=== PATIENT | female | born 1960 | race African-American/Black ===

== ENCOUNTER 2016-10-18 07:25 | Inpatient (IN) | payer MEDICAID ==
[~2016-10-18] VITALS: Ht 167.6 cm; Wt 78.8 kg
[~2016-10-18 07:25] MED LIST: ACETAMINOPHEN; AMLO10TA2; BISA-4; BUTA-187; CETI10TA93; CLON0.2T; COLACE; FLUT50SP13; HCTZ; HYDR-2595; HYDR25TA4; HYDROCODONE; IBUP800T24; IMITREX; KEPPRA; LEVE500T3; LORA10CA7; MECL-87; NORVASC 5 MG; OXYBUTYNIN 5 MG TABLET; PANTOPRAZOLE SOD DR 40 MG TAB; PREMPRO; PROMETHAZINE-DM SYRUP; PROPANALOL; PROPRANOLOL 40 MG TABLET; SUMA100T15; TRAM50TA2; TRIP2.5T9; ZOLP5TAB5
[2016-10-18] MEDS ORDERED: SODIUM CHLORIDE 0.9% 1,000 ML IV ONE (08:31)
[2016-10-18] MEDS ORDERED: PANTOPRAZOLE SODIUM 40 MG/10 ML VIAL IV ONE (08:45)
[2016-10-18] MEDS ORDERED: ASPirin 81 mg TAB PO ONE (08:45)
[2016-10-18] MEDS ORDERED: MORPHINE SULF INJ 2 MG/ML SYRINGE 1ML IV ONE ×2 (08:45→11:45)
[2016-10-18] MEDS ORDERED: ONDANSETRON HCL 4 MG/2 ML VIAL IV ONE (08:45)
[2016-10-18 08:56] LABS: Basophils # (auto) 0 uL; Basophils % (auto) 0.4 % (0.0-2.0); Eosinophils # (auto) 0 uL; Hematocrit 42.1 % (36.0-46.0); Hemoglobin 14.3 g/dL (12.2-16.2); Lymphocytes # (auto) 0.8 uL; Lymphocytes % (auto) 11.7 % (10.0-50.0); Mean Corpuscular Volume 88.1 fL (80.0-100.0); Monocytes # (auto) 0.1 uL; Neutrophils # (auto) 5.9 uL; Neutrophils % (auto) 85.9 % (37.0-80.0); Platelet Count (auto) 245 10^3/uL (140-450); Red Cell Distribution Width 13.9 % (11.6-16.0); White Blood Cell 6.9 10^3/uL (4.4-10.8)
[2016-10-18 09:27] LABS: Albumin 4.1 g/dL (3.4-5.0); Alkaline Phosphatase 91 U/L (45-117); Anion Gap 12 (5-15); Aspartate Aminotransferase 22 U/L (15-37); BUN/Creatinine Ratio 14.4; Bilirubin, Total 0.4 mg/dL (0.2-1.0); Blood Urea Nitrogen 13 mg/dL (7-18); Calcium 9.8 mg/dL (8.5-10.1); Carbon Dioxide 25 mmol/L (21-32); Chloride 105 mmol/L (98-107); GFR African American 83 mL/min; GFR Non-African American 69 mL/min; Glucose 122 mg/dL (74-106); Magnesium 2.4 mg/dL (1.6-2.6); Potassium 3.3 mmol/L (3.5-5.1); Sodium 142 mmol/L (136-145); Total Protein 8.5 g/dL (6.4-8.2)
[2016-10-18] MEDS ORDERED: LORazepam 2MG/ML-1ML VIAL IV ONE (11:45)
[2016-10-18] MEDS ORDERED: POTASSIUM CHLORIDE 8 MEQ TAB PO ONE ×2 (13:00→13:29)
[2016-10-18] MEDS ORDERED: amLODIPine BESYLATE 5 MG TAB PO ONE ×2 (13:00→14:00)
[2016-10-18] MEDS ORDERED: NITROGLYCERIN 0.4 MG SL TAB SL PRN ×2 (13:15)
[2016-10-18] MEDS ORDERED: ACETAMINOPHEN 325 MG TAB PO PRN (13:15)
[2016-10-18] MEDS ORDERED: LORazepam 0.5 MG TAB PO PRN (13:15)
[2016-10-18] MEDS ORDERED: PANTOPRAZOLE 40 MG TAB PO ONE (13:15)
[2016-10-18] MEDS ORDERED: diphenhdrAMINE HCL 25 MG CAP PO PRN (13:15)
[2016-10-18] MEDS ORDERED: HCTZ 25 MG TAB PO ONE (13:15)
[2016-10-18] MEDS ORDERED: MORPHINE SULF INJ 2 MG/ML SYRINGE 1ML IV PRN ×2 (13:15)
[2016-10-18] MEDS ORDERED: BACLOFEN 10 MG TAB PO PRN (13:15)
[2016-10-18] MEDS ORDERED: ONDANSETRON HCL 4 MG/2 ML VIAL IV PRN (13:15)
[2016-10-18] MEDS ORDERED: ALUM & MAG HYDROX-SIMETH LIQ(MAALOX) 30 ML PO PRN (13:15)
[2016-10-18] MEDS ORDERED: BISACODYL 5 MG EC TAB PO ONE (13:15)
[2016-10-18 13:24] LABS: Amylase 64 U/L (25-115)
[2016-10-18] MEDS: ASPirin 81 mg TAB PO SCH (13:43)
[2016-10-18] MEDS: DOCUSATE SOD 100 MG CAP PO SCH (13:43)
[2016-10-18 14:00] LABS: B-Type Natriuretic Peptide 5.48 pg/mL (0-100)
[2016-10-18] MEDS ORDERED: CLOPIDOGREL BISULFATE 75 MG TAB PO ONE (14:00)
[2016-10-18] MEDS ORDERED: ENALAPRIL MALEATE 10 MG TAB PO ONE (14:00)
[2016-10-18] MEDS ORDERED: LEVETIRACETAM 500 MG TAB PO ONE (14:00)
[2016-10-18] MEDS: SODIUM CHLOR 0.9% PF (SALINE LOCK) 10ML VIAL IV SCH ×2 (14:17→21:42)
[2016-10-18 14:28] LABS: Temperature: 22.2 C (20.0-25.0)
[2016-10-18 15:27] LABS: INR 1.09 (0.9-1.15); Prothrombin Time 11.2 sec (9.37-12.3)
[2016-10-18] MEDS: HYDROcodone-ACET 10/325MG TAB PO PRN (20:33)
[2016-10-18 21:00] VITALS: BP 125/82
[2016-10-18 21:31] LABS: Urine Bilirubin Negative (Negative); Urine Blood Negative /uL (Negative); Urine Ca Oxalate Crystal FEW (None Seen); Urine Color Yellow (Yellow); Urine Glucose Normal (Normal); Urine Ketone 2+ (Negative); Urine Nitrite Negative (Negative); Urine RBC 2 /hpf (0 - 4); Urine Squamous Epithelial Cell FEW /hpf (<5); Urine Urobilinogen Normal (Negative); Urine pH 6.5 (5.0-8.0)
[2016-10-18] MEDS: FLUTICASONE PROP NASAL SPR 0.05 % (50MCG) 16GM EACHNOSTRI SCH (21:42)
[2016-10-18] MEDS: LEVETIRACETAM 500 MG TAB PO SCH (21:43)
[2016-10-18] MEDS: ATORVASTATIN 20 MG TAB PO SCH (21:43)
[2016-10-18] MEDS: ENALAPRIL MALEATE 10 MG TAB PO SCH (21:44)
[2016-10-18] MEDS: PROPRANOLOL HCL 20 MG TAB PO SCH (21:46)
[2016-10-18] MEDS: ZOLPIDEM TARTRATE 5 MG TAB PO PRN (22:00)
[2016-10-18] MEDS ORDERED: PROPRANOLOL HCL 20 MG TAB PO SCH (22:00)
[2016-10-19] MEDS: ALPRAZolam 0.5 MG TAB PO PRN (01:16)
[2016-10-19] MEDS: HYDROcodone-ACET 10/325MG TAB PO PRN ×3 (02:35→18:52)
[2016-10-19 05:36] VITALS: BP 133/90
[2016-10-19] MEDS: SODIUM CHLOR 0.9% PF (SALINE LOCK) 10ML VIAL IV SCH ×3 (05:36→23:12)
[2016-10-19 06:37] LABS: Basophils # (auto) 0 uL; Basophils % (auto) 0.4 % (0.0-2.0); Eosinophils # (auto) 0.1 uL; Hemoglobin 13.3 g/dL (12.2-16.2); Lymphocytes # (auto) 2.2 uL; Lymphocytes % (auto) 27.6 % (10.0-50.0); Mean Corpuscular Hemoglobin 29.7 pg (28.0-32.0); Mean Corpuscular Hgb Conc. 33.4 g/dL (32.0-36.0); Mean Platelet Volume 8.4 fL (7.4-10.4); Monocytes # (auto) 0.5 uL; Monocytes % (auto) 5.8 % (0.0-12.0); Neutrophils # (auto) 5.3 uL; Neutrophils % (auto) 65.2 % (37.0-80.0); Platelet Count (auto) 229 10^3/uL (140-450); Red Cell Distribution Width 14.1 % (11.6-16.0); White Blood Cell 8.1 10^3/uL (4.4-10.8)
[2016-10-19 07:17] LABS: Albumin 3.6 g/dL (3.4-5.0); Alkaline Phosphatase 79 U/L (45-117); Anion Gap 10 (5-15); Aspartate Aminotransferase 19 U/L (15-37); BUN/Creatinine Ratio 13.6; Bilirubin, Total 0.5 mg/dL (0.2-1.0); Blood Urea Nitrogen 11 mg/dL (7-18); Calcium 9.3 mg/dL (8.5-10.1); Carbon Dioxide 27 mmol/L (21-32); Chloride 106 mmol/L (98-107); Cholesterol 192 mg/dL (<200); GFR African American 94 mL/min; GFR Non-African American 77 mL/min; Glucose 108 mg/dL (74-106); HDL Cholesterol 81 mg/dL (40-59); LDL Cholesterol 102 mg/dL (<100); Magnesium 2.2 mg/dL (1.6-2.6); Potassium 3.6 mmol/L (3.5-5.1); Sodium 143 mmol/L (136-145); Total Protein 7.6 g/dL (6.4-8.2); Triglycerides 67 mg/dL (<150)
[2016-10-19] MEDS: PANTOPRAZOLE 40 MG TAB PO SCH (09:39)
[2016-10-19] MEDS: CLOPIDOGREL BISULFATE 75 MG TAB PO SCH (09:39)
[2016-10-19] MEDS: amLODIPine BESYLATE 5 MG TAB PO SCH (09:39)
[2016-10-19] MEDS: ASPirin 81 mg TAB PO SCH (09:40)
[2016-10-19] MEDS: LEVETIRACETAM 500 MG TAB PO SCH ×2 (09:40→23:08)
[2016-10-19] MEDS: BISACODYL 5 MG EC TAB PO SCH (09:40)
[2016-10-19] MEDS: POTASSIUM CHLORIDE 8 MEQ TAB PO SCH (09:40)
[2016-10-19] MEDS: LORATADINE 10 MG TAB PO SCH (09:43)
[2016-10-19] MEDS: PROPRANOLOL HCL 20 MG TAB PO SCH ×2 (10:00→23:15)
[2016-10-19] MEDS ORDERED: LORATADINE 10 MG TAB PO SCH (10:00)
[2016-10-19] MEDS ORDERED: SUMAtriptan SUCCINATE 25 MG TAB PO PRN (10:00)
[2016-10-19] MEDS: ENALAPRIL MALEATE 10 MG TAB PO SCH ×2 (10:00→23:12)
[2016-10-19] MEDS ORDERED: HCTZ 25 MG TAB PO SCH (10:00)
[2016-10-19] MEDS: DOCUSATE SOD 100 MG CAP PO SCH (10:00)
[2016-10-19] MEDS: HCTZ 25 MG TAB PO SCH (10:00)
[2016-10-19] MEDS: FLUTICASONE PROP NASAL SPR 0.05 % (50MCG) 16GM EACHNOSTRI SCH ×2 (10:55→23:11)
[2016-10-19] MEDS ORDERED: IOHEXOL 350 MG/ML 100ML IJ ONE (11:13)
[2016-10-19] MEDS ORDERED: NITROGLYCERIN 0.4 MG SL TAB SL ONE (11:19)
[2016-10-19] MEDS ORDERED: METOPROLOL TARTRATE 1MG/1ML-5ML VIAL IV ONE (11:19)
[2016-10-19 17:00] VITALS: BP 151/81
[2016-10-19 20:00] VITALS: BP 129/92
[2016-10-19 22:00] VITALS: BP 129/92
[2016-10-19] MEDS: ATORVASTATIN 20 MG TAB PO SCH (23:08)
[2016-10-19] MEDS: ZOLPIDEM TARTRATE 5 MG TAB PO PRN (23:13)
[2016-10-20] MEDS: ALPRAZolam 0.5 MG TAB PO PRN ×3 (03:03→23:53)
[2016-10-20] MEDS: HYDROcodone-ACET 10/325MG TAB PO PRN ×3 (03:13→20:37)
[2016-10-20] MEDS ORDERED: PROMETHAZINE HCL 6.25 MG/5 ML ORAL SYRUP PO PRN (04:15)
[2016-10-20 05:00] VITALS: BP 125/92
[2016-10-20] MEDS: SODIUM CHLOR 0.9% PF (SALINE LOCK) 10ML VIAL IV SCH ×3 (06:06→22:36)
[2016-10-20 09:00] VITALS: BP 115/80
[2016-10-20] MEDS: PANTOPRAZOLE 40 MG TAB PO SCH (09:20)
[2016-10-20] MEDS: POTASSIUM CHLORIDE 8 MEQ TAB PO SCH (09:21)
[2016-10-20] MEDS: LORATADINE 10 MG TAB PO SCH (09:21)
[2016-10-20] MEDS: HCTZ 25 MG TAB PO SCH (09:21)
[2016-10-20] MEDS: CLOPIDOGREL BISULFATE 75 MG TAB PO SCH (09:22)
[2016-10-20] MEDS: PROPRANOLOL HCL 20 MG TAB PO SCH ×2 (09:22→22:37)
[2016-10-20] MEDS: ASPirin 81 mg TAB PO SCH (09:23)
[2016-10-20] MEDS: amLODIPine BESYLATE 5 MG TAB PO SCH (09:23)
[2016-10-20] MEDS: DOCUSATE SOD 100 MG CAP PO SCH (09:23)
[2016-10-20] MEDS: ENALAPRIL MALEATE 10 MG TAB PO SCH ×2 (09:23→22:37)
[2016-10-20] MEDS: BISACODYL 5 MG EC TAB PO SCH (09:23)
[2016-10-20] MEDS: LEVETIRACETAM 500 MG TAB PO SCH ×2 (09:23→22:37)
[2016-10-20 11:49] LABS: INR 1.08 (0.9-1.15); Partial Thromboplastin Time 24.7 sec (22.64-33.71); Prothrombin Time 11.1 sec (9.37-12.3)
[2016-10-20 12:47] VITALS: BP 136/84
[2016-10-20 16:44] VITALS: BP 138/92
[2016-10-20] MEDS ORDERED: WARFARIN SODIUM 10 MG TAB PO ONE (17:00)
[2016-10-20] MEDS: FLUTICASONE PROP NASAL SPR 0.05 % (50MCG) 16GM EACHNOSTRI SCH ×2 (18:30→22:36)
[2016-10-20 22:00] VITALS: BP 128/91
[2016-10-20] MEDS ORDERED: ENOXAPARIN SOD 60 MG/0.6 ML SYRINGE SC SCH (22:00)
[2016-10-20] MEDS: ATORVASTATIN 20 MG TAB PO SCH (22:36)
[2016-10-20] MEDS: ENOXAPARIN SOD 80 MG/0.8ML SYRINGE SC SCH (22:38)
[2016-10-20] MEDS: ZOLPIDEM TARTRATE 5 MG TAB PO PRN (23:53)
[2016-10-21] MEDS: HYDROcodone-ACET 10/325MG TAB PO PRN ×2 (05:06→18:52)
[2016-10-21] MEDS: SODIUM CHLOR 0.9% PF (SALINE LOCK) 10ML VIAL IV SCH ×3 (05:06→21:47)
[2016-10-21 05:57] VITALS: BP 136/82
[2016-10-21 05:59] LABS: Basophils # (auto) 0.1 uL; Basophils % (auto) 0.6 % (0.0-2.0); Eosinophils # (auto) 0.2 uL; Eosinophils % (auto) 1.9 % (0.0-7.0); Hemoglobin 13.6 g/dL (12.2-16.2); Lymphocytes # (auto) 2.9 uL; Lymphocytes % (auto) 36.5 % (10.0-50.0); Mean Corpuscular Hemoglobin 29.5 pg (28.0-32.0); Mean Corpuscular Hgb Conc. 33.2 g/dL (32.0-36.0); Mean Corpuscular Volume 89.1 fL (80.0-100.0); Mean Platelet Volume 8.4 fL (7.4-10.4); Monocytes # (auto) 0.5 uL; Monocytes % (auto) 6.1 % (0.0-12.0); Neutrophils # (auto) 4.4 uL; Neutrophils % (auto) 54.9 % (37.0-80.0); Platelet Count (auto) 226 10^3/uL (140-450); Red Cell Distribution Width 13.8 % (11.6-16.0)
[2016-10-21 06:13] LABS: Partial Thromboplastin Time 30.3 sec (22.64-33.71); Prothrombin Time 12.1 sec (9.37-12.3)
[2016-10-21 06:14] LABS: INR 1.17 (0.9-1.15)
[2016-10-21 06:15] LABS: Albumin 3.3 g/dL (3.4-5.0); BUN/Creatinine Ratio 18.6; Calcium 8.8 mg/dL (8.5-10.1)
[2016-10-21 06:21] LABS: Bilirubin, Total 0.3 mg/dL (0.2-1.0)
[2016-10-21 08:13] VITALS: BP 120/96
[2016-10-21] MEDS: CLOPIDOGREL BISULFATE 75 MG TAB PO SCH (09:09)
[2016-10-21] MEDS: ENALAPRIL MALEATE 10 MG TAB PO SCH ×2 (09:10→21:46)
[2016-10-21] MEDS: LEVETIRACETAM 500 MG TAB PO SCH ×2 (09:11→21:47)
[2016-10-21] MEDS: POTASSIUM CHLORIDE 8 MEQ TAB PO SCH (09:11)
[2016-10-21] MEDS: HCTZ 25 MG TAB PO SCH (09:11)
[2016-10-21] MEDS: BISACODYL 5 MG EC TAB PO SCH (09:11)
[2016-10-21] MEDS: PROPRANOLOL HCL 20 MG TAB PO SCH ×2 (09:11→21:47)
[2016-10-21] MEDS: PANTOPRAZOLE 40 MG TAB PO SCH (09:12)
[2016-10-21] MEDS: amLODIPine BESYLATE 5 MG TAB PO SCH (09:12)
[2016-10-21] MEDS: LORATADINE 10 MG TAB PO SCH (09:12)
[2016-10-21] MEDS: DOCUSATE SOD 100 MG CAP PO SCH (09:12)
[2016-10-21] MEDS: ASPirin 81 mg TAB PO SCH (09:13)
[2016-10-21] MEDS: FLUTICASONE PROP NASAL SPR 0.05 % (50MCG) 16GM EACHNOSTRI SCH ×2 (09:13→21:58)
[2016-10-21] MEDS: ENOXAPARIN SOD 80 MG/0.8ML SYRINGE SC SCH ×2 (09:13→21:51)
[2016-10-21 11:39] VITALS: BP 132/87
[2016-10-21] MEDS ORDERED: POTASSIUM CHLORIDE 40 MEQ, LIDOCAINE 1% (LOCAL ANESTH.) 4 ML in SODIUM CHL 0.9% 250 ML IV ONE (15:30)
[2016-10-21 17:00] VITALS: BP 162/81
[2016-10-21] MEDS ORDERED: WARFARIN SODIUM 2.5 MG TAB PO ONE (17:00)
[2016-10-21] MEDS: ATORVASTATIN 20 MG TAB PO SCH (21:46)
[2016-10-21] MEDS: ALPRAZolam 0.5 MG TAB PO PRN (21:46)
[2016-10-21 22:00] VITALS: BP 160/90
[2016-10-22 05:00] VITALS: BP 150/68
[2016-10-22] MEDS: HYDROcodone-ACET 10/325MG TAB PO PRN ×3 (05:32→17:53)
[2016-10-22] MEDS: SODIUM CHLOR 0.9% PF (SALINE LOCK) 10ML VIAL IV SCH ×2 (05:33→14:04)
[2016-10-22 05:58] LABS: Basophils # (auto) 0 uL; Basophils % (auto) 0.8 % (0.0-2.0); Eosinophils # (auto) 0.2 uL; Eosinophils % (auto) 2.5 % (0.0-7.0); Hematocrit 39.3 % (36.0-46.0); Hemoglobin 12.9 g/dL (12.2-16.2); Lymphocytes # (auto) 2.6 uL; Mean Corpuscular Hemoglobin 29.4 pg (28.0-32.0); Mean Corpuscular Hgb Conc. 32.9 g/dL (32.0-36.0); Mean Corpuscular Volume 89.3 fL (80.0-100.0); Mean Platelet Volume 8.3 fL (7.4-10.4); Monocytes # (auto) 0.4 uL; Monocytes % (auto) 6.8 % (0.0-12.0); Neutrophils # (auto) 2.9 uL; Neutrophils % (auto) 47.9 % (37.0-80.0); Platelet Count (auto) 227 10^3/uL (140-450); Red Cell Distribution Width 13.7 % (11.6-16.0); White Blood Cell 6.1 10^3/uL (4.4-10.8)
[2016-10-22 06:21] LABS: BUN/Creatinine Ratio 21.8; Calcium 8.8 mg/dL (8.5-10.1); Potassium 3.2 mmol/L (3.5-5.1)
[2016-10-22 06:28] LABS: Partial Thromboplastin Time 35.7 sec (22.64-33.71)
[2016-10-22 06:42] LABS: INR 2.22 (0.9-1.15); Prothrombin Time 22.9 sec (9.37-12.3)
[2016-10-22 09:00] VITALS: BP 135/92
[2016-10-22] MEDS ORDERED: POTASSIUM CHL 20 Meq TABLET PO SCH (10:00)
[2016-10-22] MEDS ORDERED: POTASSIUM CHLORIDE 40 MEQ, LIDOCAINE 1% (LOCAL ANESTH.) 4 ML in SODIUM CHL 0.9% 250 ML IV ONE (10:00)
[2016-10-22] MEDS: FLUTICASONE PROP NASAL SPR 0.05 % (50MCG) 16GM EACHNOSTRI SCH (10:00)
[2016-10-22] MEDS: ENOXAPARIN SOD 80 MG/0.8ML SYRINGE SC SCH (10:01)
[2016-10-22] MEDS: PROPRANOLOL HCL 20 MG TAB PO SCH (10:02)
[2016-10-22] MEDS: ENALAPRIL MALEATE 10 MG TAB PO SCH (10:03)
[2016-10-22] MEDS: amLODIPine BESYLATE 5 MG TAB PO SCH (10:03)
[2016-10-22] MEDS: ASPirin 81 mg TAB PO SCH (10:04)
[2016-10-22] MEDS: BISACODYL 5 MG EC TAB PO SCH (10:04)
[2016-10-22] MEDS: PANTOPRAZOLE 40 MG TAB PO SCH (10:04)
[2016-10-22] MEDS: HCTZ 25 MG TAB PO SCH (10:04)
[2016-10-22] MEDS: CLOPIDOGREL BISULFATE 75 MG TAB PO SCH (10:04)
[2016-10-22] MEDS: LEVETIRACETAM 500 MG TAB PO SCH (10:04)
[2016-10-22] MEDS: DOCUSATE SOD 100 MG CAP PO SCH (10:04)
[2016-10-22] MEDS: LORATADINE 10 MG TAB PO SCH (10:05)
[2016-10-22 11:30] VITALS: BP 135/92
[2016-10-22 13:00] VITALS: BP 135/75
[2016-10-22] MEDS ORDERED: WARFARIN SODIUM 1 MG TAB PO ONE (17:00)
== END 2016-10-22 19:20 | disposition home or self-care (01) | DRG 134 ==
LOC: EDUNIT# 07:25 → ER 07:25 → TELE 07:26 → TELE-CENTR 17:26
PROVIDERS: ADMIT Internal Medicine; ATTEND Internal Medicine
DX: I26.99 Other pulmonary embolism without acute cor pulmonale (principal); I24.9 Acute ischemic heart disease, unspecified; I13.10 Hypertensive heart and chronic kidney disease without heart failure, with stage 1 through stage 4 chronic kidney disease, or unspecified chronic kidney disease; N18.2 Chronic kidney disease, stage 2 (mild); G43.909 Migraine, unspecified, not intractable, without status migrainosus; E87.6 Hypokalemia; G40.909 Epilepsy, unspecified, not intractable, without status epilepticus; K21.9 Gastro-esophageal reflux disease without esophagitis; K80.20 Calculus of gallbladder without cholecystitis without obstruction; E44.1 Mild protein-calorie malnutrition; I25.10 Atherosclerotic heart disease of native coronary artery without angina pectoris; K44.9 Diaphragmatic hernia without obstruction or gangrene; I25.2 Old myocardial infarction; Z98.890 Other specified postprocedural states; Z87.19 Personal history of other diseases of the digestive system; Z79.01 Long term (current) use of anticoagulants; Z87.891 Personal history of nicotine dependence; Z68.28 Body mass index [BMI] 28.0-28.9, adult
CPT/HCPCS: 36415; 71010; 71250; 74176; 75574; 80048; 80053; 80061; 81001; 82150; 83690; 83735; 83880; 84443; 84484; 85025; 85610; 85730; 93005; 93306; 96361; 96374; 96375; 96376; C9113; J2001; J2405

== ENCOUNTER 2017-08-15 14:36 | Emergency (ER) | payer MEDICAID ==
[~2017-08-15] VITALS: Ht 154.9 cm; Wt 68.0 kg
[2017-08-15 18:17] VITALS: BP 141/93
== END 2017-08-15 21:00 | disposition home or self-care (01) ==
LOC: ER 14:36
DX: J10.1 Influenza due to other identified influenza virus with other respiratory manifestations (principal); I10 Essential (primary) hypertension; K21.9 Gastro-esophageal reflux disease without esophagitis; I25.2 Old myocardial infarction; Z87.891 Personal history of nicotine dependence
CPT/HCPCS: 87400

== ENCOUNTER 2017-09-22 10:15 | Emergency (ER) | payer MEDICAID ==
[~2017-09-22] VITALS: Ht 154.9 cm; Wt 68.9 kg
[2017-09-22 10:49] LABS: Basophils # (auto) 0 uL; Basophils % (auto) 0.6 % (0.0-2.0); Eosinophils # (auto) 0.3 uL; Eosinophils % (auto) 4.2 % (0.0-7.0); Hematocrit 40.7 % (36.0-46.0); Hemoglobin 13.4 g/dL (12.2-16.2); Lymphocytes % (auto) 50.2 % (10.0-50.0); Mean Corpuscular Hemoglobin 29.4 pg (28.0-32.0); Mean Corpuscular Volume 89.2 fL (80.0-100.0); Monocytes # (auto) 0.3 uL; Monocytes % (auto) 5.4 % (0.0-12.0); Neutrophils # (auto) 2.4 uL; Neutrophils % (auto) 39.6 % (37.0-80.0); Nucleated Red Blood Cells % 0.1 %; Platelet Count (auto) 199 10^3/uL (140-450); Red Blood Cells 4.56 10^6/uL (4.0-5.20); Red Cell Distribution Width 14.4 % (11.8-14.3); White Blood Cell 6.1 10^3/uL (4.4-10.8)
[2017-09-22 11:08] LABS: INR 2.43 (0.9-1.15); Prothrombin Time 26.7 sec (9.37-12.3)
[2017-09-22 11:22] VITALS: BP 125/91
[2017-09-22 11:26] LABS: Alanine Aminotransferase 31 U/L (13-56); Albumin 3.4 g/dL (3.4-5.0); Alkaline Phosphatase 109 U/L (45-117); Anion Gap 7 (5-15); Aspartate Aminotransferase 21 U/L (15-37); Bilirubin, Total 0.3 mg/dL (0.2-1.0); Blood Urea Nitrogen 15 mg/dL (7-18); Carbon Dioxide 32 mmol/L (21-32); Chloride 102 mmol/L (98-107); GFR African American 85 mL/min; GFR Non-African American 70 mL/min; Glucose 78 mg/dL (74-106); Magnesium 2.6 mg/dL (1.6-2.6); Potassium 3.6 mmol/L (3.5-5.1); Sodium 141 mmol/L (136-145); Total Protein 7.8 g/dL (6.4-8.2)
[2017-09-22 11:30] LABS: Urine Amorphous Crystal FEW /hpf (None Seen); Urine Bacteria NONE SEEN /hpf (None Seen); Urine Blood Negative /uL (Negative); Urine Specific Gravity 1.021 (1.001-1.035); Urine WBC 4 /hpf (0 - 5)
== END 2017-09-22 12:52 | disposition home or self-care (01) ==
LOC: ER 10:15
DX: R07.89 Other chest pain (principal); I10 Essential (primary) hypertension; K21.9 Gastro-esophageal reflux disease without esophagitis; I25.2 Old myocardial infarction; Z87.891 Personal history of nicotine dependence; Z86.73 Personal history of transient ischemic attack (TIA), and cerebral infarction without residual deficits; Z79.891 Long term (current) use of opiate analgesic; Z79.01 Long term (current) use of anticoagulants; Z79.899 Other long term (current) drug therapy; Z88.1 Allergy status to other antibiotic agents
CPT/HCPCS: 36415; 71046; 80053; 81001; 83735; 84484; 85025; 85610; 93005; 94761

== ENCOUNTER 2017-10-12 09:25 | Inpatient (IN) | payer MEDICAID ==
[~2017-10-12] VITALS: Ht 154.9 cm; Wt 75.0 kg
[2017-10-12 10:31] LABS: Urine WBC None Seen /hpf (0 - 5)
[2017-10-12 10:35] LABS: Basophils # (auto) 0.1 uL; Basophils % (auto) 0.8 % (0.0-2.0); Eosinophils # (auto) 0.2 uL; Eosinophils % (auto) 2.2 % (0.0-7.0); Hematocrit 40.9 % (36.0-46.0); Hemoglobin 13.7 g/dL (12.2-16.2); Lymphocytes # (auto) 2.2 uL; Lymphocytes % (auto) 31.5 % (10.0-50.0); Mean Corpuscular Hemoglobin 29.5 pg (28.0-32.0); Mean Corpuscular Hgb Conc. 33.4 g/dL (32.0-36.0); Mean Corpuscular Volume 88.2 fL (80.0-100.0); Monocytes # (auto) 0.3 uL; Monocytes % (auto) 4.9 % (0.0-12.0); Neutrophils # (auto) 4.3 uL; Neutrophils % (auto) 60.6 % (37.0-80.0); Nucleated Red Blood Cells % 0.1 %; Platelet Count (auto) 223 10^3/uL (140-450); Red Blood Cells 4.64 10^6/uL (4.0-5.20); White Blood Cell 7.1 10^3/uL (4.4-10.8)
[2017-10-12 10:58] LABS: Alanine Aminotransferase 28 U/L (13-56); Albumin 3.9 g/dL (3.4-5.0); Alkaline Phosphatase 105 U/L (45-117); Anion Gap 10 (5-15); Aspartate Aminotransferase 22 U/L (15-37); BUN/Creatinine Ratio 15.3; Bilirubin, Total 0.4 mg/dL (0.2-1.0); Blood Urea Nitrogen 13 mg/dL (7-18); Calcium 9.6 mg/dL (8.5-10.1); Carbon Dioxide 28 mmol/L (21-32); Chloride 100 mmol/L (98-107); GFR African American 88 mL/min; GFR Non-African American 73 mL/min; Glucose 96 mg/dL (74-106); Sodium 138 mmol/L (136-145); Total Protein 8.6 g/dL (6.4-8.2)
[2017-10-12] MEDS ORDERED: amLODIPine BESYLATE 5 MG TAB PO ONE ×2 (11:00→12:00)
[2017-10-12 11:07] LABS: Potassium 2.8 mmol/L (3.5-5.1)
[2017-10-12 11:12] LABS: Urine Bacteria NONE SEEN /hpf (None Seen); Urine Blood Negative /uL (Negative); Urine Specific Gravity 1.009 (1.001-1.035)
[2017-10-12] MEDS ORDERED: NITROGLYCERIN 0.4 MG SL TAB SL ONE (11:30)
[2017-10-12] MEDS ORDERED: POTASSIUM CHL 10% (20 MEQ/15ML) 15ml ORAL SOLN PO ONE (11:30)
[2017-10-12] MEDS ORDERED: ASPirin 81 mg TAB PO ONE ×2 (11:30→12:00)
[2017-10-12] MEDS ORDERED: ACETAMINOPHEN 500 MG TAB PO PRN (11:45)
[2017-10-12] MEDS ORDERED: NITROGLYCERIN 0.4 MG SL TAB SL PRN (11:45)
[2017-10-12] MEDS ORDERED: cloNIDine HCL 0.1 MG TAB PO PRN (11:45)
[2017-10-12] MEDS ORDERED: LACTULOSE 20Gm/30ML SOLN PO PRN (11:45)
[2017-10-12] MEDS ORDERED: PROMETHAZINE HCL 25 MG/ML 1ML IV PRN (11:45)
[2017-10-12] MEDS ORDERED: MORPHINE SULFATE 4 MG/ML SYR/VIAL IV PRN (11:45)
[2017-10-12] MEDS ORDERED: ENOXAPARIN SOD 40 MG/0.4 ML SYRINGE SC SCH (11:56)
[2017-10-12] MEDS ORDERED: PANTOPRAZOLE 40 MG TAB PO ONE (12:00)
[2017-10-12] MEDS ORDERED: PROPRANOLOL HCL 20 MG TAB PO ONE (12:00)
[2017-10-12] MEDS ORDERED: LEVETIRACETAM 500 MG TAB PO ONE (12:00)
[2017-10-12] MEDS: SOD CHL 0.9%/ KCL 40MEQ 1,000 ML IV SCH (12:19)
[2017-10-12 14:54] LABS: Partial Thromboplastin Time 42.9 sec (22.64-33.71); Prothrombin Time 46.3 sec (9.37-12.3)
[2017-10-12 15:00] LABS: INR 4.19 (0.9-1.15)
[2017-10-12] MEDS: LORazepam 0.5 MG TAB PO PRN (18:31)
[2017-10-12] MEDS: LEVETIRACETAM 500 MG TAB PO SCH (21:38)
[2017-10-12] MEDS: ZOLPIDEM TARTRATE 5 MG TAB PO PRN (21:39)
[2017-10-12] MEDS: PROPRANOLOL HCL 20 MG TAB PO SCH (21:40)
[2017-10-12 22:00] VITALS: BP 117/72
[2017-10-13] MEDS: LORazepam 0.5 MG TAB PO PRN ×3 (03:35→21:38)
[2017-10-13 05:00] VITALS: BP 124/76
[2017-10-13] MEDS: SOD CHL 0.9%/ KCL 40MEQ 1,000 ML IV SCH ×3 (05:03→21:33)
[2017-10-13 06:34] LABS: INR 3.16 (0.9-1.15); Partial Thromboplastin Time 43.6 sec (22.64-33.71); Prothrombin Time 34.9 sec (9.37-12.3)
[2017-10-13 06:48] LABS: Cholesterol 194 mg/dL (< 200); HDL Cholesterol 70 mg/dL (40-59); LDL Cholesterol 114 mg/dL (< 100); Triglycerides 55 mg/dL (< 150)
[2017-10-13 08:57] LABS: Alcohol, Urine < 3.0 mg/dL (0-5); Amphetamine Screen, Urine NEGATIVE (NEGATIVE); Barbiturate Scree,Urine NEGATIVE (NEGATIVE); Benzodiazephine Screen, Urine NEGATIVE (NEGATIVE); Cannabinoid Screen, Urine NEGATIVE (NEGATIVE); Cocaine Screen, Urine NEGATIVE (NEGATIVE); Opiate Scree,Urine NEGATIVE (NEGATIVE); Phencyclidine Screen, Urine NEGATIVE (NEGATIVE)
[2017-10-13 09:00] VITALS: BP 146/94
[2017-10-13] MEDS: amLODIPine BESYLATE 5 MG TAB PO SCH (09:13)
[2017-10-13] MEDS: LEVETIRACETAM 500 MG TAB PO SCH ×2 (09:14→21:28)
[2017-10-13] MEDS: PANTOPRAZOLE 40 MG TAB PO SCH (09:14)
[2017-10-13] MEDS: NITROGLYCERIN 0.2MG/HR TOPICAL PATCH TD SCH (09:14)
[2017-10-13] MEDS: PROPRANOLOL HCL 20 MG TAB PO SCH ×2 (09:14→21:30)
[2017-10-13] MEDS: ASPirin 81 mg TAB PO SCH (09:15)
[2017-10-13] MEDS ORDERED: KETOROLAC TROMETH 30 MG/ML 1ML VIAL IV PRN (10:30)
[2017-10-13 10:47] LABS: BUN/Creatinine Ratio 12.7; Calcium 8.9 mg/dL (8.5-10.1); Potassium 3.1 mmol/L (3.5-5.1)
[2017-10-13 11:40] LABS: Urine Bacteria NONE SEEN /hpf (None Seen); Urine Blood Negative /uL (Negative); Urine Specific Gravity 1.011 (1.001-1.035); Urine WBC <1 /hpf (0 - 5)
[2017-10-13] MEDS: HYDROcodone-ACET 5/325MG TAB PO PRN ×2 (12:25→20:32)
[2017-10-13 13:00] VITALS: BP 140/34
[2017-10-13] MEDS ORDERED: POTASSIUM CHLORIDE 40 MEQ, LIDOCAINE 1% (LOCAL ANESTH.) 4 ML in SODIUM CHL 0.9% 100 ML IV ONE (15:30)
[2017-10-13] MEDS: MORPHINE SULFATE 4 MG/ML SYR/VIAL IV PRN (16:16)
[2017-10-13 17:22] VITALS: BP 145/97
[2017-10-13] MEDS: ZOLPIDEM TARTRATE 5 MG TAB PO PRN (21:28)
[2017-10-13 22:00] VITALS: BP 138/95
[2017-10-14 05:00] VITALS: BP 145/91
[2017-10-14 05:41] LABS: Basophils # (auto) 0.1 uL; Basophils % (auto) 0.8 % (0.0-2.0); Eosinophils # (auto) 0.2 uL; Eosinophils % (auto) 2.7 % (0.0-7.0); Hematocrit 40.1 % (36.0-46.0); Hemoglobin 13.6 g/dL (12.2-16.2); Lymphocytes # (auto) 2.6 uL; Lymphocytes % (auto) 37.6 % (10.0-50.0); Mean Corpuscular Hemoglobin 30.3 pg (28.0-32.0); Mean Corpuscular Hgb Conc. 33.8 g/dL (32.0-36.0); Mean Corpuscular Volume 89.6 fL (80.0-100.0); Monocytes # (auto) 0.4 uL; Monocytes % (auto) 6.2 % (0.0-12.0); Neutrophils # (auto) 3.7 uL; Neutrophils % (auto) 52.7 % (37.0-80.0); Nucleated Red Blood Cells % 0.2 %; Platelet Count (auto) 207 10^3/uL (140-450); Red Blood Cells 4.48 10^6/uL (4.0-5.20); Red Cell Distribution Width 14.3 % (11.8-14.3)
[2017-10-14 05:52] LABS: INR 2.11 (0.9-1.15); Prothrombin Time 23.2 sec (9.37-12.3)
[2017-10-14 05:55] LABS: Albumin 3.4 g/dL (3.4-5.0); BUN/Creatinine Ratio 12.7; Bilirubin, Total 0.4 mg/dL (0.2-1.0); Potassium 3.8 mmol/L (3.5-5.1); Total Protein 7.8 g/dL (6.4-8.2)
[2017-10-14 08:00] VITALS: BP_SYST 130; BP_SYST 148; BP_DIAS 55; BP_DIAS 96
[2017-10-14] MEDS: LORazepam 0.5 MG TAB PO PRN ×2 (08:02→20:32)
[2017-10-14] MEDS: LEVETIRACETAM 500 MG TAB PO SCH ×2 (09:09→22:30)
[2017-10-14] MEDS: PROPRANOLOL HCL 20 MG TAB PO SCH ×2 (09:09→22:31)
[2017-10-14] MEDS: amLODIPine BESYLATE 5 MG TAB PO SCH (09:09)
[2017-10-14] MEDS: ASPirin 81 mg TAB PO SCH (09:09)
[2017-10-14] MEDS: NITROGLYCERIN 0.2MG/HR TOPICAL PATCH TD SCH (09:10)
[2017-10-14] MEDS: PANTOPRAZOLE 40 MG TAB PO SCH (09:10)
[2017-10-14] MEDS: HYDROcodone-ACET 5/325MG TAB PO PRN (09:17)
[2017-10-14 12:00] VITALS: BP 142/94
[2017-10-14 16:00] VITALS: BP 139/92
[2017-10-14] MEDS: MORPHINE SULFATE 4 MG/ML SYR/VIAL IV PRN (16:46)
[2017-10-14] MEDS ORDERED: WARFARIN SODIUM 2 MG TAB PO ONE (17:00)
[2017-10-14] MEDS: SOD CHL 0.9%/ KCL 40MEQ 1,000 ML IV SCH (18:43)
[2017-10-14 22:11] VITALS: BP 145/95
[2017-10-14] MEDS: ZOLPIDEM TARTRATE 5 MG TAB PO PRN (22:30)
[2017-10-15] MEDS: HYDROcodone-ACET 5/325MG TAB PO PRN ×2 (00:30→06:26)
[2017-10-15] MEDS: LORazepam 0.5 MG TAB PO PRN (04:37)
[2017-10-15 05:33] VITALS: BP 137/95
[2017-10-15 05:47] LABS: Basophils # (auto) 0.1 uL; Basophils % (auto) 0.7 % (0.0-2.0); Eosinophils # (auto) 0.2 uL; Eosinophils % (auto) 2.6 % (0.0-7.0); Hematocrit 39.1 % (36.0-46.0); Hemoglobin 13.3 g/dL (12.2-16.2); Lymphocytes # (auto) 2.6 uL; Lymphocytes % (auto) 32.6 % (10.0-50.0); Mean Corpuscular Hemoglobin 30.1 pg (28.0-32.0); Mean Corpuscular Hgb Conc. 33.9 g/dL (32.0-36.0); Mean Corpuscular Volume 88.9 fL (80.0-100.0); Monocytes # (auto) 0.5 uL; Monocytes % (auto) 5.7 % (0.0-12.0); Neutrophils # (auto) 4.7 uL; Neutrophils % (auto) 58.4 % (37.0-80.0); Nucleated Red Blood Cells % 0.1 %; Platelet Count (auto) 201 10^3/uL (140-450)
[2017-10-15 05:51] LABS: INR 1.56 (0.9-1.15); Prothrombin Time 17.1 sec (9.37-12.3)
[2017-10-15] MEDS: SOD CHL 0.9%/ KCL 40MEQ 1,000 ML IV SCH (06:25)
[2017-10-15 08:00] VITALS: BP 131/95
[2017-10-15 08:08] LABS: BUN/Creatinine Ratio 13.7
[2017-10-15] MEDS: PROPRANOLOL HCL 20 MG TAB PO SCH (09:01)
[2017-10-15] MEDS: ASPirin 81 mg TAB PO SCH (09:01)
[2017-10-15] MEDS: LEVETIRACETAM 500 MG TAB PO SCH (09:01)
[2017-10-15] MEDS: PANTOPRAZOLE 40 MG TAB PO SCH (09:02)
[2017-10-15] MEDS: NITROGLYCERIN 0.2MG/HR TOPICAL PATCH TD SCH (09:02)
[2017-10-15] MEDS: amLODIPine BESYLATE 5 MG TAB PO SCH (09:02)
[2017-10-15 09:47] VITALS: BP 131/95
[2017-10-15] MEDS ORDERED: WARFARIN SODIUM 5 MG TAB PO ONE (17:00)
== END 2017-10-15 11:05 | disposition home or self-care (01) | DRG 203 ==
LOC: ER 09:25 → TELE 09:26 → TELE-WESTW 16:40
PROVIDERS: ADMIT Internal Medicine; ATTEND Internal Medicine
DX: M94.0 Chondrocostal junction syndrome [Tietze] (principal); I26.99 Other pulmonary embolism without acute cor pulmonale; I24.9 Acute ischemic heart disease, unspecified; I10 Essential (primary) hypertension; G40.509 Epileptic seizures related to external causes, not intractable, without status epilepticus; E87.6 Hypokalemia; T45.515A Adverse effect of anticoagulants, initial encounter; K21.9 Gastro-esophageal reflux disease without esophagitis; Z79.01 Long term (current) use of anticoagulants; I25.2 Old myocardial infarction; Z82.3 Family history of stroke; Z86.718 Personal history of other venous thrombosis and embolism; Z86.711 Personal history of pulmonary embolism; Y92.89 Other specified places as the place of occurrence of the external cause; Z88.1 Allergy status to other antibiotic agents
CPT/HCPCS: 36415; 71046; 80048; 80053; 80061; 80307; 81001; 82550; 84443; 84484; 85025; 85379; 85610; 85652; 85730; 86141; 87804; 93005; 93306; 96360; 99291; J1885; J2001

== ENCOUNTER 2018-09-02 20:54 | Inpatient (IN) | payer MEDICAID | END 2018-09-08 13:03 | disposition home or self-care (01) | LOC: TELE 09-03 06:38 → TELE-WESTW 09-03 21:16 → ER 20:54 | DX: K92.2 Gastrointestinal hemorrhage, unspecified (principal); E78.5 Hyperlipidemia, unspecified; I25.10 Atherosclerotic heart disease of native coronary artery without angina pectoris; R07.9 Chest pain, unspecified; E87.6 Hypokalemia; I10 Essential (primary) hypertension; R10.9 Unspecified abdominal pain; G40.909 Epilepsy, unspecified, not intractable, without status epilepticus; Z82.3 Family history of stroke; K21.9 Gastro-esophageal reflux disease without esophagitis; K59.00 Constipation, unspecified; Z95.5 Presence of coronary angioplasty implant and graft; Z86.711 Personal history of pulmonary embolism ==

== ENCOUNTER 2018-10-22 18:11 | Inpatient (IN) | payer MEDICAID ==
[~2018-10-22] VITALS: Ht 157.5 cm; Wt 67.1 kg
[~2018-10-22 18:11] MED LIST changes: -ACETAMINOPHEN; -AMLO10TA2; +AMLO5TAB13 PO; +ASP81EC PO; +BACL10TA PO; -BISA-4; +BISA-4 PO; -BUTA-187; -CETI10TA93; +CLON0.1T PO; -CLON0.2T; +CLOP75TA28 PO; -COLACE; +ENAL2.5T PO; +ESOM40CA39 PO; -FLUT50SP13; -HCTZ; -HYDR-2595; -HYDR25TA4; +HYDR25TA4 PO; -HYDROCODONE; -IBUP800T24; -IMITREX; +KEP500T PO; -KEPPRA; -LEVE500T3; -LORA10CA7; -MECL-87; -NORVASC 5 MG; -OXYBUTYNIN 5 MG TABLET; -PANTOPRAZOLE SOD DR 40 MG TAB; +POTA10TA51 PO; +PRAV20TA3 PO; -PREMPRO; -PROMETHAZINE-DM SYRUP; +PROP80CA40 PO; -PROPANALOL; -PROPRANOLOL 40 MG TABLET; -SUMA100T15; -TRAM50TA2; +TRAZ100T2 PO; -TRIP2.5T9; -ZOLP5TAB5
[2018-10-22 18:54] LABS: Basophils # (auto) 0 uL; Basophils % (auto) 0.4 % (0.0-2.0); Eosinophils # (auto) 0.3 uL; Eosinophils % (auto) 3.1 % (0.0-7.0); Hemoglobin 13.7 g/dL (12.2-16.2); Lymphocytes # (auto) 2.2 uL; Lymphocytes % (auto) 20.9 % (10.0-50.0); Mean Corpuscular Hemoglobin 30.6 pg (28.0-32.0); Mean Corpuscular Hgb Conc. 33.4 g/dL (32.0-36.0); Mean Corpuscular Volume 91.6 fL (80.0-100.0); Monocytes # (auto) 0.6 uL; Monocytes % (auto) 5.5 % (0.0-12.0); Neutrophils # (auto) 7.3 uL; Neutrophils % (auto) 70.1 % (37.0-80.0); Nucleated Red Blood Cells % 0.1 %; Platelet Count (auto) 222 10^3/uL (140-450); Red Blood Cells 4.47 10^6/uL (4.0-5.20); White Blood Cell 10.4 10^3/uL (4.4-10.8)
[2018-10-22 19:10] LABS: INR 0.97 (0.9-1.15); Partial Thromboplastin Time 25.9 sec (23.78-33.04); Prothrombin Time 10.4 sec (9.27-12.13)
[2018-10-22] MEDS ORDERED: HYDROmorphone HCL 2 MG/ML VL IM ONE (19:45)
[2018-10-22] MEDS ORDERED: ONDANSETRON HCL 4 MG/2 ML VIAL IM ONE (19:45)
[2018-10-22] MEDS ORDERED: cloNIDine HCL 0.1 MG TAB PO ONE (19:45)
[2018-10-22] MEDS ORDERED: HYDROcodone-ACET 5/325MG TAB PO ONE (20:45)
[2018-10-22 21:18] LABS: Alanine Aminotransferase 44 U/L (13-56); Anion Gap 6 (5-15); Aspartate Aminotransferase 27 U/L (15-37); Blood Urea Nitrogen 14 mg/dL (7-18); Calcium 9.2 mg/dL (8.5-10.1); Carbon Dioxide 32 mmol/L (21-32); Chloride 100 mmol/L (98-107); Glucose 116 mg/dL (74-106); Magnesium 2.2 mg/dL (1.6-2.6); Potassium 3.5 mmol/L (3.5-5.1); Sodium 138 mmol/L (136-145)
[2018-10-22 21:23] LABS: Alkaline Phosphatase 105 U/L (45-117); BUN/Creatinine Ratio 17.5; Bilirubin, Total 0.3 mg/dL (0.2-1.0); GFR African American 94 mL/min; GFR Non-African American 78 mL/min; Total Protein 8.1 g/dL (6.4-8.2)
[2018-10-23] MEDS ORDERED: BISACODYL 5 MG EC TAB PO PRN (01:15)
[2018-10-23] MEDS ORDERED: cloNIDine HCL 0.1 MG TAB PO PRN (01:15)
[2018-10-23] MEDS ORDERED: NITROGLYCERIN 0.4 MG SL TAB SL PRN (01:15)
[2018-10-23] MEDS ORDERED: LORazepam 2MG/ML-1ML VIAL IV PRN (01:15)
[2018-10-23] MEDS ORDERED: PROMETHAZINE HCL 25 MG/ML 1ML IV ONE (04:15)
[2018-10-23] MEDS ORDERED: ONDANSETRON HCL 4 MG/2 ML VIAL IV ONE (06:00)
[2018-10-23 07:13] LABS: Basophils # (auto) 0 uL; Basophils % (auto) 0.4 % (0.0-2.0); Eosinophils # (auto) 0.1 uL; Hematocrit 34.9 % (36.0-46.0); Hemoglobin 11.7 g/dL (12.2-16.2); Lymphocytes # (auto) 1.7 uL; Lymphocytes % (auto) 29.5 % (10.0-50.0); Mean Corpuscular Hemoglobin 30.8 pg (28.0-32.0); Mean Corpuscular Hgb Conc. 33.5 g/dL (32.0-36.0); Mean Corpuscular Volume 91.9 fL (80.0-100.0); Monocytes # (auto) 0.3 uL; Monocytes % (auto) 4.9 % (0.0-12.0); Neutrophils # (auto) 3.7 uL; Neutrophils % (auto) 64.2 % (37.0-80.0); Nucleated Red Blood Cells % 0.1 %; Platelet Count (auto) 175 10^3/uL (140-450); Red Blood Cells 3.79 10^6/uL (4.0-5.20); Red Cell Distribution Width 14.1 % (11.8-14.3); White Blood Cell 5.7 10^3/uL (4.4-10.8)
[2018-10-23 07:34] LABS: BUN/Creatinine Ratio 22.4; Potassium 3.4 mmol/L (3.5-5.1)
[2018-10-23] MEDS: ACETAMINOPHEN 325 MG TAB PO PRN ×2 (08:41→17:55)
[2018-10-23] MEDS: ENALAPRIL MALEATE 10 MG TAB PO SCH ×2 (10:34→21:57)
[2018-10-23] MEDS: LEVETIRACETAM 500 MG TAB PO SCH ×2 (10:34→21:56)
[2018-10-23] MEDS: CLOPIDOGREL BISULFATE 75 MG TAB PO SCH (10:34)
[2018-10-23] MEDS: amLODIPine BESYLATE 5 MG TAB PO SCH (10:34)
[2018-10-23] MEDS: PROPRANOLOL HCL 20 MG TAB PO SCH ×2 (10:34→21:56)
[2018-10-23] MEDS: PANTOPRAZOLE 40 MG TAB PO SCH (10:34)
[2018-10-23] MEDS: MORPHINE SULFATE 4 MG/ML SYR/VIAL IV PRN ×2 (11:58→22:02)
[2018-10-23] MEDS: HYDROcodone-ACET 5/325MG TAB PO PRN ×2 (13:42→20:01)
[2018-10-23 16:52] VITALS: BP 153/93
[2018-10-23 17:28] VITALS: BP 153/93
--- NOTE | 2018-10-23 17:45 | NUR ---
Telemetry admit from ER DANNGURPREET admitted to Telemetry unit after verbal report received. Patient oriented to Katarina Veloz, primary RN, unit, room, bed, and unit policies regarding patient care and visiting hours. Patient now on continuous telemetry monitoring, tele box #6 and telemetry reading on arrival to unit is sinus rhythm @ 68 bpm. Patient placed on bedside oxygen, weighed by bedscale and encouraged to call if they need something. IV to left hand, 22 gauge, patent and saline locked. All questions and concerns addressed, patient verbalized understanding. Bed locked, in lowest position, call light within reach, will continue to monitor Q 1 hour and PRN.
--- NOTE | 2018-10-23 19:12 | NUR ---
Care endorsed to FAROOQ Gill, night nurse.
--- NOTE | 2018-10-23 19:30 | NUR ---
Opening Shift Note Assumed care of patient, awake and alert X4. No S/S of distress/SOB, complains of pain 8/10 to chest and abdomen. Patient has been NPO since lunch time for US abdomen pending. IV patent. Instructed on POC and to call for assist PRN, will continue to monitor for changes Q1hr and PRN.
--- NOTE | 2018-10-23 21:30 | NUR ---
Took patient down to US via wheelchair. Tech unable to come to floor. Gave pt a sandwich and snacks after US since she did not eat dinner.
[2018-10-23] MEDS: traZODone HCL 50 MG TAB PO SCH (21:56)
[2018-10-23 22:00] VITALS: BP 143/95
[2018-10-24] MEDS: HYDROcodone-ACET 5/325MG TAB PO PRN ×3 (01:45→19:28)
[2018-10-24] MEDS: ACETAMINOPHEN 325 MG TAB PO PRN ×3 (05:24→16:09)
[2018-10-24] MEDS: LACTULOSE 20Gm/30ML SOLN PO PRN ×3 (05:26→22:35)
[2018-10-24 05:36] VITALS: BP 137/91
[2018-10-24 06:27] LABS: Basophils # (auto) 0 uL; Basophils % (auto) 0.5 % (0.0-2.0); Eosinophils # (auto) 0.1 uL; Eosinophils % (auto) 0.8 % (0.0-7.0); Hematocrit 33.9 % (36.0-46.0); Hemoglobin 11.2 g/dL (12.2-16.2); Lymphocytes # (auto) 1.9 uL; Mean Corpuscular Hemoglobin 30.7 pg (28.0-32.0); Mean Corpuscular Hgb Conc. 33.2 g/dL (32.0-36.0); Mean Corpuscular Volume 92.5 fL (80.0-100.0); Monocytes # (auto) 0.4 uL; Monocytes % (auto) 5.4 % (0.0-12.0); Neutrophils # (auto) 4.2 uL; Neutrophils % (auto) 64.3 % (37.0-80.0); Nucleated Red Blood Cells % 0.1 %; Platelet Count (auto) 191 10^3/uL (140-450); Red Blood Cells 3.66 10^6/uL (4.0-5.20); White Blood Cell 6.6 10^3/uL (4.4-10.8)
[2018-10-24 06:49] LABS: Albumin 3.2 g/dL (3.4-5.0); Calcium 8.9 mg/dL (8.5-10.1); Potassium 3.2 mmol/L (3.5-5.1)
[2018-10-24 06:51] LABS: BUN/Creatinine Ratio 19.2
[2018-10-24 06:54] LABS: Bilirubin, Total 0.4 mg/dL (0.2-1.0); Total Protein 6.7 g/dL (6.4-8.2)
--- NOTE | 2018-10-24 08:00 | NUR ---
Opening Shift Note Assumed care of patient, awake, alert and oriented X4. No S/S of distress/SOB or pain. Tele# 6, sinus rhythm @82 bpm. IV to left hand, 22 gauge, patent and saline locked. Instructed on POC and to call for assist PRN, verbalized understanding. Bed locked, in lowest position, call light within reach, will continue to monitor for changes Q1hr and PRN.
[2018-10-24 09:00] VITALS: BP 144/48
[2018-10-24] MEDS: CLOPIDOGREL BISULFATE 75 MG TAB PO SCH ×2 (10:00→10:19)
[2018-10-24] MEDS ORDERED: POTASSIUM CHLORIDE 40 MEQ, LIDOCAINE 1% (LOCAL ANESTH.) 4 ML in SODIUM CHL 0.9% 100 ML IV ONE (10:15)
[2018-10-24] MEDS: PROPRANOLOL HCL 20 MG TAB PO SCH ×2 (10:18→22:29)
[2018-10-24] MEDS: LEVETIRACETAM 500 MG TAB PO SCH ×2 (10:18→22:30)
[2018-10-24] MEDS: amLODIPine BESYLATE 5 MG TAB PO SCH (10:19)
[2018-10-24] MEDS: PANTOPRAZOLE 40 MG TAB PO SCH (10:19)
[2018-10-24] MEDS: ENALAPRIL MALEATE 10 MG TAB PO SCH ×2 (10:19→22:30)
--- NOTE | 2018-10-24 11:13 | NUR ---
ROUNDS Dr Tk Cintron at bedside for rounds, new orders received and followed through. Patient updated on plan of care, verbalized understanding.
[2018-10-24] MEDS: SUCRALFATE 1 GM/10 ML ORAL SUSP PO SCH ×3 (11:50→22:31)
[2018-10-24 13:00] VITALS: BP 148/82
[2018-10-24] MEDS: ONDANSETRON HCL 4 MG/2 ML VIAL IV PRN (16:08)
[2018-10-24] MEDS ORDERED: LORazepam 0.5 MG TAB PO ONE (17:45)
[2018-10-24 17:46] VITALS: BP 148/85
--- NOTE | 2018-10-24 19:19 | NUR ---
Care endorsed to FAROOQ Gill, night nurse.
[2018-10-24 20:00] VITALS: BP 144/98
[2018-10-24 22:00] VITALS: BP 142/92
[2018-10-24] MEDS: traZODone HCL 50 MG TAB PO SCH (22:28)
--- NOTE | 2018-10-24 23:00 | NUR ---
Moved patient to room 250B due to her verbalizing she has not got very much sleep due to pt in 247A. Stated "she calls the nurses all the time and her machine (bipap) always goes off." Patient verbalized she is happy about moving. Ambulating steady gait.
[2018-10-25] MEDS: ACETAMINOPHEN 325 MG TAB PO PRN ×2 (03:30→15:48)
[2018-10-25 05:00] VITALS: BP 151/101
[2018-10-25] MEDS: SUCRALFATE 1 GM/10 ML ORAL SUSP PO SCH ×4 (06:04→21:41)
[2018-10-25] MEDS: MORPHINE SULFATE 4 MG/ML SYR/VIAL IV PRN (06:05)
[2018-10-25] MEDS: HYDROcodone-ACET 5/325MG TAB PO PRN ×3 (06:56→20:31)
--- NOTE | 2018-10-25 06:58 | NUR ---
Medicated for pain to upper gastric and chest area. Clonidine given prn for BP 151/101. Will recheck @0715. NPO since 0000 for MRCP today. Had 3 bowel movements last night and stated "i feel like i still have more that needs to come out". Will ask kitchen for prune juice as well. Tele monitor SR 75 with no change. Call light within reach
--- NOTE | 2018-10-25 07:30 | NUR ---
ASSESSMENT NOTE PT IS ALERT ORIENTED X4, RESTING IN BED COMFORTABLY, NO DISTRESS NOTED, ABLE TO VERBALIS HER DEMANDS, SELF REPOSITION, DENIES PAIN AT THIS TIME, CALL LIGHT WITHIN REACH.
[2018-10-25 07:41] LABS: Basophils # (auto) 0 uL; Basophils % (auto) 0.6 % (0.0-2.0); Eosinophils # (auto) 0 uL; Eosinophils % (auto) 0.6 % (0.0-7.0); Hematocrit 32.5 % (36.0-46.0); Hemoglobin 11.3 g/dL (12.2-16.2); Lymphocytes # (auto) 2.4 uL; Lymphocytes % (auto) 35.2 % (10.0-50.0); Mean Corpuscular Hemoglobin 32.4 pg (28.0-32.0); Mean Corpuscular Hgb Conc. 34.9 g/dL (32.0-36.0); Mean Corpuscular Volume 92.8 fL (80.0-100.0); Monocytes # (auto) 0.4 uL; Monocytes % (auto) 5.6 % (0.0-12.0); Neutrophils # (auto) 3.9 uL; Platelet Count (auto) 190 10^3/uL (140-450); Red Cell Distribution Width 13.9 % (11.8-14.3); White Blood Cell 6.8 10^3/uL (4.4-10.8)
[2018-10-25 07:56] LABS: Potassium 3.3 mmol/L (3.5-5.1)
[2018-10-25 08:00] VITALS: BP 133/88
--- NOTE | 2018-10-25 08:00 | NUR ---
OUT TO RADIOLOGY FOR MRCP PT IS ALERT ORIENTED X4, NO DISTRESS NOTED.
[2018-10-25 08:06] LABS: BUN/Creatinine Ratio 13.9; Calcium 8.7 mg/dL (8.5-10.1)
--- NOTE | 2018-10-25 08:30 | NUR ---
PT IS BACK TO HER ROOM BY A WHEELCHAIR. SITTING UP AT THE SIDE OF THE BED EATING BREAKFAST
[2018-10-25] MEDS: PROPRANOLOL HCL 20 MG TAB PO SCH ×2 (09:36→21:44)
[2018-10-25] MEDS: CLOPIDOGREL BISULFATE 75 MG TAB PO SCH (09:36)
[2018-10-25] MEDS: PANTOPRAZOLE 40 MG TAB PO SCH (09:37)
[2018-10-25] MEDS: amLODIPine BESYLATE 5 MG TAB PO SCH (09:37)
[2018-10-25] MEDS: LEVETIRACETAM 500 MG TAB PO SCH ×2 (09:37→21:41)
[2018-10-25] MEDS: ENALAPRIL MALEATE 10 MG TAB PO SCH ×2 (09:38→21:45)
--- NOTE | 2018-10-25 09:49 | NUR ---
DR HARMON NUPUR AT BED SIDE WITH NEW ORDERS
[2018-10-25] MEDS ORDERED: POTASSIUM CHLORIDE 40 MEQ, LIDOCAINE 1% (LOCAL ANESTH.) 4 ML in SODIUM CHL 0.9% 100 ML IV ONE (10:00)
[2018-10-25 12:00] VITALS: BP 144/91
--- NOTE | 2018-10-25 13:00 | NUR ---
IV insertion IV access obtained, via clean sterile technique by inserting 22 gauge catheter at after attempt(s). IV secured properly. No trauma to site. Patient tolerated procedure well.
--- NOTE | 2018-10-25 13:47 | NUR ---
PT CONTINUE STABLE, DENIES ABDOMEN ACHING PAIN, TOLERATING EACH MEAL, CONTINUE MONITORING.
--- NOTE | 2018-10-25 14:30 | NUR ---
Opening Shift Note Assumed care of the patient from FAROOQ Mcwilliams. The patient is A&Ox4, no signs or symptoms of distress.The patient's lung sounds are clear and bowel signs are normal. The patient's skin is intact and pulses palpable bilaterally in the lower and upper extremities. Educated the patient on POC and patient verbalized understanding. The patient's call light is within reach and bed is in the lowest, locked position. Will round hourly and continue to monitor.
[2018-10-25 17:00] VITALS: BP 129/80
[2018-10-25] MEDS: ONDANSETRON HCL 4 MG/2 ML VIAL IV PRN (18:31)
--- NOTE | 2018-10-25 19:00 | NUR ---
OPENING NOTE PATIENT IS A&OX4. NO S/S OF DISTRESS OR SOB. BED IS AT LOWEST POSITION, CALL LIGHT IS IN REACH. WILL CONTINUE TO MONITOR.
[2018-10-25 20:00] VITALS: BP 105/63
[2018-10-25 21:30] VITALS: BP 136/87
[2018-10-25] MEDS: traZODone HCL 50 MG TAB PO SCH (21:41)
[2018-10-26] MEDS: HYDROcodone-ACET 5/325MG TAB PO PRN ×3 (02:57→15:28)
[2018-10-26 05:00] VITALS: BP 141/93
[2018-10-26] MEDS: ONDANSETRON HCL 4 MG/2 ML VIAL IV PRN (05:23)
[2018-10-26] MEDS: LACTULOSE 20Gm/30ML SOLN PO PRN (05:23)
[2018-10-26] MEDS: SUCRALFATE 1 GM/10 ML ORAL SUSP PO SCH ×2 (06:50→12:03)
--- NOTE | 2018-10-26 07:29 | NUR ---
CLOSING NOTE. ENDORSED CARE TO DAY SHIFT RN. PATIENT SHOWS NO S/S OF DISTRESS, SOB, OR PAIN. BED IS AT LOWEST POSITION, CALL LIGHT IN REACH.
[2018-10-26 09:19] LABS: BUN/Creatinine Ratio 10.8; Calcium 9.1 mg/dL (8.5-10.1); Potassium 3.2 mmol/L (3.5-5.1)
[2018-10-26 09:21] VITALS: BP 152/106
[2018-10-26] MEDS ORDERED: POTASSIUM CHLORIDE 40 MEQ, LIDOCAINE 1% (LOCAL ANESTH.) 4 ML in SODIUM CHL 0.9% 100 ML IV ONE (09:45)
[2018-10-26] MEDS: LEVETIRACETAM 500 MG TAB PO SCH (09:45)
[2018-10-26] MEDS: PANTOPRAZOLE 40 MG TAB PO SCH (09:46)
[2018-10-26] MEDS: CLOPIDOGREL BISULFATE 75 MG TAB PO SCH (09:46)
[2018-10-26] MEDS: ENALAPRIL MALEATE 10 MG TAB PO SCH (09:47)
[2018-10-26] MEDS: amLODIPine BESYLATE 5 MG TAB PO SCH (09:47)
[2018-10-26] MEDS: PROPRANOLOL HCL 20 MG TAB PO SCH (09:48)
[2018-10-26 11:08] VITALS: BP 152/106
[2018-10-26] MEDS: ACETAMINOPHEN 325 MG TAB PO PRN (12:03)
[2018-10-26 12:38] VITALS: BP 136/103
[2018-10-26] MEDS ORDERED: POTASSIUM CHL 20 Meq TABLET PO ONE (15:30)
[2018-10-26 16:24] VITALS: BP 150/106
== END 2018-10-26 17:00 | disposition home or self-care (01) | DRG 241 ==
LOC: ER 18:14 → TELE 10-23 01:10 → TELE-EAST 10-23 15:11
PROVIDERS: ADMIT Nurse Practitioner Family; ATTEND Internal Medicine
PROC: 2Y41X5Z Packing of Nasal Region using Packing Material (ICD-10-PCS; principal; 2018-10-23)
DX: K29.70 Gastritis, unspecified, without bleeding (principal); E78.5 Hyperlipidemia, unspecified; R04.0 Epistaxis; I10 Essential (primary) hypertension; G40.909 Epilepsy, unspecified, not intractable, without status epilepticus; K21.9 Gastro-esophageal reflux disease without esophagitis; F41.9 Anxiety disorder, unspecified; K59.00 Constipation, unspecified; R07.89 Other chest pain; I25.10 Atherosclerotic heart disease of native coronary artery without angina pectoris; Z95.5 Presence of coronary angioplasty implant and graft; Z88.1 Allergy status to other antibiotic agents; Z79.02 Long term (current) use of antithrombotics/antiplatelets; Z82.3 Family history of stroke; Z82.49 Family history of ischemic heart disease and other diseases of the circulatory system
CPT/HCPCS: 36415; 71045; 74181; 76705; 80048; 80053; 83735; 83880; 84443; 84484; 85025; 85379; 85610; 85730; 93005; 96372; 96374; 96375; G0378; J2001; J2405

== ENCOUNTER 2019-01-28 21:18 | Inpatient (IN) | payer MEDICAID ==
[~2019-01-28] VITALS: Ht 154.9 cm; Wt 68.8 kg
[2019-01-28] MEDS ORDERED: cloNIDine HCL 0.1 MG TAB PO ONE (21:45)
[2019-01-28 22:15] LABS: Basophils # (auto) 0 uL; Basophils % (auto) 0.5 % (0.0-2.0); Eosinophils # (auto) 0.3 uL; Eosinophils % (auto) 3.6 % (0.0-7.0); Hematocrit 42.9 % (36.0-46.0); Lymphocytes # (auto) 2.1 uL; Lymphocytes % (auto) 28.5 % (10.0-50.0); Mean Corpuscular Hemoglobin 29.4 pg (28.0-32.0); Mean Corpuscular Hgb Conc. 32.7 g/dL (32.0-36.0); Mean Corpuscular Volume 89.8 fL (80.0-100.0); Monocytes # (auto) 0.4 uL; Monocytes % (auto) 5.3 % (0.0-12.0); Neutrophils # (auto) 4.6 uL; Neutrophils % (auto) 62.1 % (37.0-80.0); Nucleated Red Blood Cells % 0.1 %; Platelet Count (auto) 162 10^3/uL (140-450); Red Blood Cells 4.78 10^6/uL (4.0-5.20); Red Cell Distribution Width 13.7 % (11.8-14.3); White Blood Cell 7.4 10^3/uL (4.4-10.8)
[2019-01-28 22:31] LABS: Albumin 3.9 g/dL (3.4-5.0); Anion Gap 8 (5-15); Blood Urea Nitrogen 15 mg/dL (7-18); Calcium 9.3 mg/dL (8.5-10.1); Carbon Dioxide 30 mmol/L (21-32); Chloride 103 mmol/L (98-107); Glucose 116 mg/dL (74-106); Magnesium 2.3 mg/dL (1.6-2.6); Potassium 3.6 mmol/L (3.5-5.1); Sodium 141 mmol/L (136-145)
[2019-01-28 22:33] LABS: Alanine Aminotransferase 55 U/L (13-56); Aspartate Aminotransferase 31 U/L (15-37); GFR African American 78 mL/min; GFR Non-African American 65 mL/min
[2019-01-28 22:38] LABS: Alkaline Phosphatase 105 U/L (45-117); Bilirubin, Total 0.2 mg/dL (0.2-1.0); Total Protein 8.4 g/dL (6.4-8.2)
[2019-01-28 22:42] LABS: INR < 0.93 (0.9-1.15)
[2019-01-29] MEDS ORDERED: IOHEXOL 350 MG/ML 100ML IJ ONE (04:57)
[2019-01-29 05:13] LABS: Urine Bacteria FEW /hpf (None Seen); Urine Blood Negative /uL (Negative); Urine Specific Gravity 1.006 (1.001-1.035); Urine WBC 11 /hpf (0 - 5)
[2019-01-29] MEDS ORDERED: MORPHINE SULF INJ 2 MG/ML SYRINGE 1ML IV PRN (07:15)
[2019-01-29] MEDS ORDERED: ONDANSETRON HCL 4 MG/2 ML VIAL IV PRN (07:15)
[2019-01-29] MEDS ORDERED: HYDROcodone-ACET 5/325MG TAB PO PRN (07:15)
[2019-01-29] MEDS ORDERED: NITROGLYCERIN 0.4 MG SL TAB SL PRN (07:15)
[2019-01-29] MEDS ORDERED: TEMAZEPAM 15 MG CAP PO PRN (07:15)
[2019-01-29] MEDS ORDERED: ONDANSETRON HCL 4 MG/2 ML VIAL IV ONE (07:15)
[2019-01-29] MEDS ORDERED: ACETAMINOPHEN 325 MG TAB PO PRN (07:15)
[2019-01-29] MEDS ORDERED: MORPHINE SULFATE 4 MG/ML SYR/VIAL IV ONE (07:15)
[2019-01-29] MEDS ORDERED: amLODIPine BESYLATE 5 MG TAB PO ONE (07:30)
[2019-01-29] MEDS: LEVETIRACETAM 500 MG TAB PO SCH ×2 (09:35→21:28)
[2019-01-29] MEDS: FAMOTIDINE 20 MG TAB PO SCH ×2 (09:35→21:27)
[2019-01-29] MEDS: cefTRIAXone 1GM/50ML D5W 50 ML IV SCH (09:35)
[2019-01-29] MEDS: HCTZ 25 MG TAB PO SCH (09:35)
[2019-01-29] MEDS: cloNIDine HCL 0.1 MG TAB PO SCH (09:35)
[2019-01-29] MEDS: CLOPIDOGREL BISULFATE 75 MG TAB PO SCH (09:35)
[2019-01-29] MEDS: ASPirin 81 mg TAB PO SCH (09:35)
[2019-01-29] MEDS: PROPRANOLOL HCL 20 MG TAB PO SCH ×2 (09:35→21:28)
[2019-01-29] MEDS: ENALAPRIL MALEATE 10 MG TAB PO SCH ×2 (09:36→21:29)
[2019-01-29] MEDS ORDERED: HYDROcodone-ACET 10/325MG TAB ONE (15:16)
[2019-01-29] MEDS: HYDROcodone-ACET 10/325MG TAB PO PRN (15:22)
[2019-01-29] MEDS ORDERED: HYDROmorphone HCL 2 MG/ML VL IV PRN (15:30)
[2019-01-29 16:42] VITALS: BP 140/99
[2019-01-29 17:03] VITALS: BP 140/99
[2019-01-29] MEDS ORDERED: HYDR-531 PO (18:03)
[2019-01-29] MEDS ORDERED: HYDR5CRE3 PR (18:03)
[2019-01-29] MEDS ORDERED: POTA1TAB4 PO (18:03)
[2019-01-29] MEDS ORDERED: PRAVASTATIN SODIUM 20 MG TAB PO SCH (22:00)
[2019-01-29] MEDS ORDERED: traZODone HCL 50 MG TAB PO SCH (22:30)
[2019-01-29 22:40] VITALS: BP 120/74
[2019-01-29] MEDS: DOCUSATE SOD 100 MG CAP PO SCH (23:05)
[2019-01-30] MEDS: HYDROcodone-ACET 10/325MG TAB PO PRN ×2 (03:56→13:02)
[2019-01-30 05:27] VITALS: BP 160/95
[2019-01-30 05:54] LABS: Basophils # (auto) 0 uL; Basophils % (auto) 0.4 % (0.0-2.0); Eosinophils # (auto) 0.3 uL; Hemoglobin 13.3 g/dL (12.2-16.2); Lymphocytes # (auto) 1.9 uL; Lymphocytes % (auto) 36.6 % (10.0-50.0); Mean Corpuscular Hemoglobin 29.5 pg (28.0-32.0); Mean Corpuscular Hgb Conc. 33.3 g/dL (32.0-36.0); Mean Corpuscular Volume 88.5 fL (80.0-100.0); Monocytes # (auto) 0.4 uL; Monocytes % (auto) 7.9 % (0.0-12.0); Neutrophils # (auto) 2.6 uL; Neutrophils % (auto) 50.1 % (37.0-80.0); Nucleated Red Blood Cells % 0.2 %; Platelet Count (auto) 153 10^3/uL (140-450); Red Blood Cells 4.52 10^6/uL (4.0-5.20); Red Cell Distribution Width 13.9 % (11.8-14.3); White Blood Cell 5.1 10^3/uL (4.4-10.8)
[2019-01-30 06:12] LABS: BUN/Creatinine Ratio 23.2; Calcium 9.2 mg/dL (8.5-10.1); Potassium 4.2 mmol/L (3.5-5.1)
[2019-01-30 08:50] VITALS: BP 126/80
[2019-01-30] MEDS ORDERED: amLODIPine BESYLATE 5 MG TAB PO SCH (10:00)
[2019-01-30] MEDS: LEVETIRACETAM 500 MG TAB PO SCH (10:16)
[2019-01-30] MEDS: FAMOTIDINE 20 MG TAB PO SCH (10:16)
[2019-01-30] MEDS: CLOPIDOGREL BISULFATE 75 MG TAB PO SCH (10:16)
[2019-01-30] MEDS: ASPirin 81 mg TAB PO SCH (10:16)
[2019-01-30] MEDS: HCTZ 25 MG TAB PO SCH (10:16)
[2019-01-30] MEDS: ENALAPRIL MALEATE 10 MG TAB PO SCH (10:17)
[2019-01-30] MEDS: cloNIDine HCL 0.1 MG TAB PO SCH (10:18)
[2019-01-30] MEDS: DOCUSATE SOD 100 MG CAP PO SCH (10:18)
[2019-01-30] MEDS: PROPRANOLOL HCL 20 MG TAB PO SCH (10:18)
[2019-01-30] MEDS: cefTRIAXone 1GM/50ML D5W 50 ML IV SCH (10:19)
[2019-01-30 12:40] VITALS: BP 134/95
== END 2019-01-30 17:10 | disposition home or self-care (01) | DRG 243 ==
LOC: ER 21:21 → TELE 01-29 07:21 → TELE-WESTW 01-29 16:48
PROVIDERS: ADMIT Nurse Practitioner; ATTEND Internal Medicine
DX: K21.9 Gastro-esophageal reflux disease without esophagitis (principal); I11.0 Hypertensive heart disease with heart failure; I50.9 Heart failure, unspecified; I27.20 Pulmonary hypertension, unspecified; I25.10 Atherosclerotic heart disease of native coronary artery without angina pectoris; N39.0 Urinary tract infection, site not specified; I71.4 Abdominal aortic aneurysm, without rupture; K59.00 Constipation, unspecified; E78.5 Hyperlipidemia, unspecified; G89.4 Chronic pain syndrome; K64.9 Unspecified hemorrhoids; K59.09 Other constipation; Z82.3 Family history of stroke; Z86.711 Personal history of pulmonary embolism; Z82.49 Family history of ischemic heart disease and other diseases of the circulatory system; Z95.5 Presence of coronary angioplasty implant and graft; Z88.8 Allergy status to other drugs, medicaments and biological substances
CPT/HCPCS: 36415; 71260; 74177; 80048; 80053; 81001; 83735; 83880; 84484; 85025; 85610; 85730; 93005; 94761; 96374; 96375; G0378; J0696; J2405

== ENCOUNTER 2019-02-12 17:16 | Inpatient (IN) | payer MEDICAID ==
[~2019-02-12] VITALS: Ht 154.9 cm; Wt 67.7 kg
[~2019-02-12 17:16] MED LIST changes: +HYDR-531 PO; +HYDR5CRE3 PR; -POTA10TA51 PO; +POTA1TAB4 PO
[2019-02-12] MEDS ORDERED: SODIUM CHLORIDE 0.9% 1,000 ML IV ONE (17:34)
[2019-02-12] MEDS ORDERED: ASPirin 81 mg TAB PO ONE (17:45)
[2019-02-12] MEDS ORDERED: NITROGLYCERIN 0.4 MG SL TAB SL ONE (17:45)
[2019-02-12] MEDS ORDERED: cloNIDine HCL 0.1 MG TAB PO ONE (17:45)
[2019-02-12 18:40] LABS: Basophils # (auto) 0 uL; Basophils % (auto) 0.6 % (0.0-2.0); Eosinophils # (auto) 0.3 uL; Eosinophils % (auto) 4.8 % (0.0-7.0); Hematocrit 39.8 % (36.0-46.0); Hemoglobin 13.1 g/dL (12.2-16.2); Lymphocytes # (auto) 2.1 uL; Lymphocytes % (auto) 40.4 % (10.0-50.0); Mean Corpuscular Hemoglobin 29.2 pg (28.0-32.0); Mean Corpuscular Hgb Conc. 32.9 g/dL (32.0-36.0); Mean Corpuscular Volume 88.7 fL (80.0-100.0); Monocytes # (auto) 0.4 uL; Monocytes % (auto) 7.1 % (0.0-12.0); Neutrophils # (auto) 2.5 uL; Neutrophils % (auto) 47.1 % (37.0-80.0); Platelet Count (auto) 195 10^3/uL (140-450); Red Blood Cells 4.49 10^6/uL (4.0-5.20); Red Cell Distribution Width 14.1 % (11.8-14.3); White Blood Cell 5.3 10^3/uL (4.4-10.8)
[2019-02-12 18:57] LABS: Albumin 3.4 g/dL (3.4-5.0); Anion Gap 5 (5-15); Blood Urea Nitrogen 12 mg/dL (7-18); Calcium 9.2 mg/dL (8.5-10.1); Carbon Dioxide 31 mmol/L (21-32); Chloride 106 mmol/L (98-107); Glucose 124 mg/dL (74-106); Magnesium 2.4 mg/dL (1.6-2.6); Potassium 3.2 mmol/L (3.5-5.1); Sodium 142 mmol/L (136-145)
[2019-02-12 19:03] LABS: Alanine Aminotransferase 43 U/L (13-56); Alkaline Phosphatase 93 U/L (45-117); Aspartate Aminotransferase 33 U/L (15-37); BUN/Creatinine Ratio 12.6; Bilirubin, Total 0.2 mg/dL (0.2-1.0); GFR African American 77 mL/min; GFR Non-African American 64 mL/min; Total Protein 7.1 g/dL (6.4-8.2)
[2019-02-12] MEDS ORDERED: MORPHINE SULF INJ 2 MG/ML SYRINGE 1ML IV ONE (20:00)
[2019-02-12] MEDS ORDERED: POTASSIUM CHL 20 Meq TABLET PO ONE (20:15)
[2019-02-12] MEDS ORDERED: IOHEXOL 300 MG/ML 100ML BOTTLE IJ ONE (20:35)
[2019-02-12] MEDS ORDERED: ONDANSETRON HCL 4 MG/2 ML VIAL IV PRN (20:45)
[2019-02-12] MEDS ORDERED: NITROGLYCERIN 0.4 MG SL TAB SL PRN (20:45)
[2019-02-12] MEDS ORDERED: ACETAMINOPHEN 325 MG TAB PO PRN (20:45)
[2019-02-12] MEDS: cloNIDine HCL 0.1 MG TAB PO PRN (20:58)
[2019-02-12 21:28] LABS: BUN/Creatinine Ratio 17.7; Potassium 3.2 mmol/L (3.5-5.1)
[2019-02-12] MEDS: HYDROcodone-ACET 5/325MG TAB PO PRN (21:39)
[2019-02-12] MEDS: PRAVASTATIN SODIUM 20 MG TAB PO SCH (22:19)
[2019-02-12] MEDS: FAMOTIDINE 20 MG TAB PO SCH (22:19)
[2019-02-12] MEDS: LISINOPRIL 20 MG TAB PO SCH (22:20)
[2019-02-12] MEDS ORDERED: ENALAPRILAT 1.25 MG/ML-1ML VIAL IV ONE (23:00)
--- NOTE | 2019-02-13 00:20 | NUR ---
Telemetry admit from ER DANNGURPREET admitted to Telemetry unit after SBAR received. Patient oriented to Jenelle Phillips, RN primary RN, unit, room, bed, and unit policies regarding patient care and visiting hours. Patient now on continuous telemetry monitoring, tele box #7 and telemetry reading on arrival to unit is NSR. Patient placed on bedside oxygen, weighed by bedscale and encouraged to call if they need something. All questions and concerns addressed, patient verbalized understanding. Note: alert and oriented x 4 on room air with even and unlabored respirations. no s/s of distress. patient ambulates with steady gait. Bed low locked position withside rails up x 2 and call light within reach. Will continue to monitor.
[2019-02-13 00:53] VITALS: BP 131/99
[2019-02-13] MEDS ORDERED: ZOLP10TA PO (01:48)
[2019-02-13] MEDS ORDERED: PRO20T PO (01:48)
[2019-02-13] MEDS ORDERED: HYDR5CRE3 PR (01:48)
[2019-02-13] MEDS ORDERED: LEVE500T22 PO (01:48)
[2019-02-13] MEDS ORDERED: DOCU1CAP31 PO (01:48)
[2019-02-13] MEDS ORDERED: BACL10TA PO (01:48)
[2019-02-13] MEDS ORDERED: LISI-646 PO (01:48)
[2019-02-13] MEDS ORDERED: ACE650RS PO (01:48)
[2019-02-13] MEDS ORDERED: ASPI81TA27 PO (01:48)
[2019-02-13] MEDS ORDERED: PERCOT PO (01:48)
[2019-02-13] MEDS ORDERED: SUCR1TAB PO (01:48)
[2019-02-13] MEDS ORDERED: BISA10SU52 PO (01:48)
[2019-02-13] MEDS ORDERED: CYAN100L PO (01:48)
[2019-02-13] MEDS ORDERED: CLOP75TA28 PO (01:48)
[2019-02-13] MEDS ORDERED: TRAZ100T2 PO (01:48)
[2019-02-13] MEDS ORDERED: PRAV20TA3 PO (01:48)
[2019-02-13] MEDS ORDERED: CLON0.1T PO (01:48)
[2019-02-13] MEDS ORDERED: MELA3TAB27 PO (01:48)
[2019-02-13] MEDS ORDERED: [UNRECOGNIZED DRUG - CODE] PO (01:48)
[2019-02-13] MEDS ORDERED: ESOM40CA39 PO (01:48)
[2019-02-13] MEDS ORDERED: HYDR25TA4 PO (01:48)
[2019-02-13] MEDS ORDERED: POTA10TA51 PO (01:48)
[2019-02-13] MEDS ORDERED: PREN-96 PO (01:48)
[2019-02-13] MEDS ORDERED: AMLO5TAB13 PO (01:48)
--- NOTE | 2019-02-13 02:00 | NUR ---
Jia Napier NP RE: patient home medications Keppra patient reports she takes Keppra 500mg BID PO. Awaiting call back, will continue care.
--- NOTE | 2019-02-13 02:10 | NUR ---
Received call back from Jerry,CENTERLESS GRINDER OPERATOR updated on patient status. now new orders received, per Karthikeyan,CENTERLESS GRINDER OPERATOR have hospitalist reconcile home medication in the morning. Will continue care.
[2019-02-13] MEDS: TEMAZEPAM 15 MG CAP PO PRN (02:23)
[2019-02-13 05:15] VITALS: BP 134/84
--- NOTE | 2019-02-13 07:00 | NUR ---
Closing Note patient resting in bed with even and unlabored respirations. no s/s of distress. Seizure precautions in place. bed low locked position with side rails up x 2 and call light within reach. Endorsed care to dayshift RN.
[2019-02-13 07:15] LABS: Basophils # (auto) 0 uL; Basophils % (auto) 0.8 % (0.0-2.0); Eosinophils # (auto) 0.2 uL; Eosinophils % (auto) 4.8 % (0.0-7.0); Hematocrit 40.4 % (36.0-46.0); Hemoglobin 13.2 g/dL (12.2-16.2); Lymphocytes # (auto) 2.2 uL; Lymphocytes % (auto) 44.2 % (10.0-50.0); Mean Corpuscular Hemoglobin 29.1 pg (28.0-32.0); Mean Corpuscular Hgb Conc. 32.8 g/dL (32.0-36.0); Mean Corpuscular Volume 88.6 fL (80.0-100.0); Monocytes # (auto) 0.3 uL; Monocytes % (auto) 6.8 % (0.0-12.0); Neutrophils # (auto) 2.2 uL; Neutrophils % (auto) 43.4 % (37.0-80.0); Nucleated Red Blood Cells % 0.1 %; Platelet Count (auto) 180 10^3/uL (140-450); Red Blood Cells 4.55 10^6/uL (4.0-5.20); Red Cell Distribution Width 13.7 % (11.8-14.3)
--- NOTE | 2019-02-13 08:00 | NUR ---
Opening Shift Note Assumed care of patient, awake and alert. No S/S of distress/SOB or pain. Instructed on POC and to call for assist PRN, will continue to monitor for changes Q1hr and PRN.
[2019-02-13 08:30] VITALS: BP 148/87
--- NOTE | 2019-02-13 08:30 | NUR ---
C.P. PATIENT C/O CHEST PAIN. SHE REFUSED NITRO SHE STATED IT GIVES HER A HEADACHE AND SHE ALREADY HAS A HEADACHE. SHE RATED HER CHEST PAIN AROUND A 6 AND HER HEADACHE AROUND A 9-10. CALLED STRESS YARN BLEACHING MACHINE OPERATOR TO DO EKG ON PATIENT.
[2019-02-13] MEDS: MORPHINE SULF INJ 2 MG/ML SYRINGE 1ML IV PRN (08:38)
--- NOTE | 2019-02-13 09:30 | NUR ---
C.P. RELIEVED CHEST PAIN RELIVED WITH MORPHINE. PATIENT RATES IT A 4. SHE SAID SHE STILL HAS A HEADACHE. PATIENT HAS NORCO IF NEEDED FOR HER HEADACHE.
[2019-02-13] MEDS: LISINOPRIL 20 MG TAB PO SCH ×2 (10:09→21:43)
[2019-02-13] MEDS: FAMOTIDINE 20 MG TAB PO SCH ×2 (10:09→21:42)
[2019-02-13] MEDS: CLOPIDOGREL BISULFATE 75 MG TAB PO SCH (10:09)
[2019-02-13] MEDS: ASPirin 81 mg TAB PO SCH (10:10)
--- NOTE | 2019-02-13 11:45 | NUR ---
EKG DONE EKG WAS DONE ON PATIENT. DR. DURANT WAS NOTIFIED - LEFT MESSAGE. ONE DOSE OF MORPHINE WAS GIVEN AND WAS EFFECTIVE FOR CHEST PAIN.
[2019-02-13 11:55] VITALS: BP 160/108
[2019-02-13] MEDS: cloNIDine HCL 0.1 MG TAB PO PRN (12:17)
[2019-02-13] MEDS: HYDROcodone-ACET 5/325MG TAB PO PRN (14:34)
[2019-02-13 16:24] VITALS: BP 138/91
--- NOTE | 2019-02-13 18:38 | NUR ---
Pressure/Constipation/MD notified Patient is c/o pressure to her left abdomen that radiates up into her left chest. She said she hasn't had a bowel movement since 02/11 and is constipated. She has been drinking 2 prune juices at each meal and still has not had a BM. She stated she does not want any more pain medication because she feels like that is making is worse. This nurse called and left a message for Dr. Dunn regarding this issue and requesting a laxative or enema per patient request to help with the constipation. Waiting for return call.
--- NOTE | 2019-02-13 19:30 | NUR ---
Opening Shift Note Assumed care of patient from day shift RN Laura. Pt is awake and alert and oriented x4. Pt c/o 05/23 headache, refusing Bellaire 5/325 states "it doesn't help at all" and requesting order for Bellaire 10/325. Dr. Mona holbrook, made aware of concerns and will see patient. Safety maintained with bed rails upx2, locked and in lowest position with call izaguirre within reach. Instructed on POC and to call for assist PRN, will continue to monitor for changes Q1hr and PRN.
--- NOTE | 2019-02-13 20:40 | NUR ---
DR. DURANT AT BEDSIDE DISCUSSED POC AT BEDSIDE, CHECKED BP AT BEDSIDE 198/114 HR 74 AND PT C/O CONSTIPATION AND HEADACHE, NO RELIEF FROM NORCO 5/325. NEW MEDICATION, CT ABD, AND HEMATOLOGY/ONCOLOGY CONSULT ORDERS RECEIVED AND INPUT BY DR. DURANT.
[2019-02-13] MEDS ORDERED: hydrALAZINE HCL 20 MG/ML VL IV PRN (20:45)
[2019-02-13] MEDS ORDERED: amLODIPine BESYLATE 5 MG TAB PO ONE (20:45)
[2019-02-13] MEDS ORDERED: hydrALAZINE HCL 20 MG/ML VL IV ONE (20:45)
[2019-02-13] MEDS ORDERED: FUROSEMIDE 40 MG TAB PO ONE (20:45)
[2019-02-13] MEDS ORDERED: POTASSIUM CHL 20 Meq TABLET PO ONE (20:45)
[2019-02-13] MEDS: LEVETIRACETAM 500 MG TAB PO SCH (21:44)
[2019-02-13] MEDS: PRAVASTATIN SODIUM 20 MG TAB PO SCH (21:44)
[2019-02-13 22:00] VITALS: BP 198/114
[2019-02-13] MEDS: OXYCODONE W/ ACETAMINOPHEN 5/325MG TABLET PO PRN (23:17)
--- NOTE | 2019-02-14 00:15 | NUR ---
REASSESSMENT BP 2315 BP 183/112 HR 72 0015 BP 152/102 HR 72 NO S/S DISTRESS. WILL CONTINUE TO MONITOR.
[2019-02-14] MEDS: DOCUSATE SOD 100 MG CAP PO PRN ×2 (00:21→13:05)
[2019-02-14] MEDS: TEMAZEPAM 15 MG CAP PO PRN ×2 (00:21→23:45)
[2019-02-14] MEDS: ACETAMINOPHEN 325 MG TAB PO PRN (04:31)
[2019-02-14 05:00] VITALS: BP 147/111
[2019-02-14 06:41] LABS: Basophils # (auto) 0 uL; Basophils % (auto) 0.5 % (0.0-2.0); Eosinophils # (auto) 0.2 uL; Eosinophils % (auto) 3.5 % (0.0-7.0); Hematocrit 43.2 % (36.0-46.0); Hemoglobin 14.4 g/dL (12.2-16.2); Lymphocytes % (auto) 48.2 % (10.0-50.0); Mean Corpuscular Hemoglobin 29.3 pg (28.0-32.0); Mean Corpuscular Hgb Conc. 33.3 g/dL (32.0-36.0); Mean Corpuscular Volume 87.9 fL (80.0-100.0); Monocytes # (auto) 0.5 uL; Monocytes % (auto) 7.5 % (0.0-12.0); Neutrophils # (auto) 2.5 uL; Neutrophils % (auto) 40.3 % (37.0-80.0); Nucleated Red Blood Cells % 0.2 %; Platelet Count (auto) 189 10^3/uL (140-450); Red Blood Cells 4.91 10^6/uL (4.0-5.20); Red Cell Distribution Width 14.3 % (11.8-14.3); White Blood Cell 6.3 10^3/uL (4.4-10.8)
[2019-02-14 07:11] LABS: BUN/Creatinine Ratio 17.1; Calcium 9.6 mg/dL (8.5-10.1)
[2019-02-14] MEDS: OXYCODONE W/ ACETAMINOPHEN 5/325MG TABLET PO PRN ×3 (07:23→23:45)
[2019-02-14 07:38] LABS: Potassium 2.9 mmol/L (3.5-5.1)
--- NOTE | 2019-02-14 08:45 | NUR ---
[facility] K LAB REPORTED POTASSIUM LAB OF 2.9. THIS NURSE CALLED THE MD AND NOTIFIED HIM. RETURN CALL RECEIVED AND NEW ORDERS FOR POTASSIUM PO AND 3 K-RIDERS WERE ENTERED.
[2019-02-14 09:00] VITALS: BP 153/116
[2019-02-14] MEDS ORDERED: POTASSIUM CHL 20MEQ/100ML 100 ML IV ONE ×3 (09:00→13:00)
[2019-02-14] MEDS ORDERED: POTASSIUM CHL 20 Meq TABLET PO ONE (09:00)
[2019-02-14] MEDS: ASPirin 81 mg TAB PO SCH (09:16)
[2019-02-14] MEDS: LEVETIRACETAM 500 MG TAB PO SCH ×2 (09:16→21:17)
[2019-02-14] MEDS: FUROSEMIDE 40 MG TAB PO SCH (09:17)
[2019-02-14] MEDS: amLODIPine BESYLATE 5 MG TAB PO SCH (09:18)
[2019-02-14] MEDS: BACLOFEN 10 MG TAB PO SCH (09:18)
[2019-02-14] MEDS: FAMOTIDINE 20 MG TAB PO SCH ×2 (09:18→21:19)
[2019-02-14] MEDS: CLOPIDOGREL BISULFATE 75 MG TAB PO SCH (09:19)
[2019-02-14] MEDS: LISINOPRIL 20 MG TAB PO SCH ×2 (09:19→21:18)
--- NOTE | 2019-02-14 09:30 | NUR ---
Potassium - K rider Patient c/o burning. It was explained that potassium can be irritating to the blood vessels which is why we run it with normal saline. She said "it has never burned like this before". This nurse slowed the potassium to 40 mEq/hour and increased the rate of the NS to 70. She asked if the needle could be coming out and this nurse explained that there is just the flexible plastic catheter in the vein and not an actual metal needle.
[2019-02-14] MEDS ORDERED: POTASSIUM CHL 10 Meq TABLET PO SCH (10:00)
[2019-02-14 13:00] VITALS: BP 164/100
[2019-02-14] MEDS ORDERED: SUMAtriptan SUCCINATE 25 MG TAB PO ONE (15:45)
--- NOTE | 2019-02-14 16:29 | NUR ---
Dr. Elise bedside Discussed findings of incidental calcified node on CXR and CT. Dr. Elise instructed pt that no inpatient workup is necessary and that he would be more than happy to follow her as an outpatient. He provided his information to the patient. It was explained to the pt that the CT of the abd/pelvis can be done as an outpatient given that she has recently been exposed to contrast and imaging is not urgent. He explained that the possibility of cancer is low.
--- NOTE | 2019-02-14 16:31 | NUR ---
Dr. Dunn at bedside Discussed with pt in regards to medical conditions including her BP, electrolytes, chest pain, and calcified lesion noted on imaging. He explained to her that he has adjusted her BP medications and she will need to follow up with her PCP to optimize her BP. He explained to her that she has been seen by cardiology and was cleared from a cardiac perspective and her chest pain is likely not cardiac in origin. He instructed her to follow up with her pain specialist outpatient. He also explained that her electrolytes are being supplemented and he is to prescribe supplementation upon discharge. He reiterated Dr. Elise's recommendations while Dr. Elise was at bedside.
--- NOTE | 2019-02-14 16:35 | NUR ---
Pt considering appeal of DC Dr. Elise and Dr. Dunn both spoke with the patient regarding being cleared for discharge. It was explained that her BP could be managed outpatient. It was also explained that Dr. Elise could see her outpatient and do the CT outpatient as well. Pt recently had contrast and radiology said it is unsafe for her to get contrast within 48 hours, it is also against hospital policy. Lab also said that her kidney function needs to improve and would be safer for the CT to be done outpatient. Patient stated she wanted to talk to [facility] and speak with Dr. Cardoso tomorrow as he is unavailable today. Francois, the charge nurse, explained what would happen if she is to appeal the D/C and that she would be responsible for any billing after the D/C is entered. She expressed understanding of this. Dr. Dunn explained that she is cleared for discharge and went over the risks of staying in the hospital - such as blood clots and the possibility of infection. Patient expressed understanding and concern about her BP, which the MD had explained can be managed outpatient. Pt is waiting to talk to her sister about the situation.
[2019-02-14] MEDS: hydrALAZINE HCL 25 MG TAB PO SCH ×2 (16:59→21:18)
[2019-02-14 17:00] VITALS: BP 154/112
[2019-02-14] MEDS ORDERED: hydrALAZINE HCL 25 MG TAB PO PRN (17:00)
--- NOTE | 2019-02-14 18:47 | NUR ---
POTASSIUM POTASSIUM LEVEL 3.3 AFTER 2 K-RIDERS. LAST K-RIDER IS RUNNING. LOST IV DURING THE DAY AND HAD TO INSERT A NEW ONE. DIFFICULT IV INSERTION. PER MD, WILL FINISH LAST K-RIDER AND RECHECK VITAL SIGNS, THEN CALL MD WITH RESULTS.
--- NOTE | 2019-02-14 19:05 | NUR ---
Opening Shift Note Assumed care of patient from day shift RN Laura. Pt is awake and alert and oriented x4. No s/s distress. Safety maintained with bed rails upx2, locked and in lowest position with call izaguirre within reach. Instructed on POC and to call for assist PRN, will continue to monitor for changes Q1hr and PRN.
[2019-02-14] MEDS: PRAVASTATIN SODIUM 20 MG TAB PO SCH (21:19)
--- NOTE | 2019-02-14 21:33 | NUR ---
REASSESSMENT VITALS PER DAY FAROOQ REBOLLEDO, REASSESS VITAL SIGNS AFTER ADMINISTRATION OF LAST POTASSIUM BAG AND NOTIFY MD. BP 151/108, HR 98, TEMP 98.3, RR 18, O2 99 ON RA. NO S/S DISTRESS. DR. DURANT UNAVAILABLE, LEFT MESSAGE ON ANSWERING MACHINE. Addendum: 02/14/19 at 2146 by DELFINO KING RN RN DR. DURANT RETURNED CALL. NEW ORDERS RECEIVED AND READ BACK FOR VERIFICATION. METOPROLOL 12.5 MG ONCE NOW, METOPROLOL 12.5 MG BID, AND KEEP PT OVER NIGHT, POSSIBLE D/C TOMORROW.
[2019-02-14 21:58] VITALS: BP 151/107
[2019-02-14] MEDS ORDERED: hydrALAZINE HCL 25 MG TAB PO ONE (22:00)
[2019-02-14] MEDS ORDERED: METOPROLOL TARTRATE 25 MG TAB PO ONE (22:00)
--- NOTE | 2019-02-15 03:10 | NUR ---
PT C/O MIGRAINE PT C/O MIGRAINE PAIN 05/23 AND UNABLE TO SLEEP FOR TWO NIGHTS IN A ROW. REQUESTING IMITREX AND STATES "THEY GAVE ME A ONE TIME DOSE DURING THE DAY AND THAT'S THE ONLY THING THAT HAS HELPED MY MIGRAINE." LEFT MESSAGE TO DR. DURANT, AWAITING CALL BACK.
[2019-02-15] MEDS: ACETAMINOPHEN 325 MG TAB PO PRN (03:32)
[2019-02-15 04:57] VITALS: BP 119/99
[2019-02-15] MEDS: hydrALAZINE HCL 25 MG TAB PO SCH ×2 (05:35→14:00)
[2019-02-15] MEDS: DOCUSATE SOD 100 MG CAP PO PRN (05:36)
[2019-02-15] MEDS: MORPHINE SULF INJ 2 MG/ML SYRINGE 1ML IV PRN ×2 (06:15→07:29)
--- NOTE | 2019-02-15 06:20 | NUR ---
ELEVATED HR HR 140'S AFTER AMBULATING TO BATHROOM. CURRENTLY IN 110'S, EKG PERFORMED SINUS TACHYCARDIA. MORPHINE GIVEN FOR 05/23 CHEST PAIN. LEFT MESSAGE TO DR. DURANT. AWAITING CALL BACK Addendum: 02/15/19 at 0631 by DELFINO KING RN RN DR. DURANT RETURNED CALL. NEW ORDERS RECEIVED AND READ BACK FOR VERIFICATION. LAB DRAW FOR POTASSIUM, CHANGE METOPROLOL DOSAGE TO 25MG BID, IMITREX 100MG ONCE.
[2019-02-15] MEDS ORDERED: SUMAtriptan SUCCINATE 25 MG TAB PO ONE (06:45)
[2019-02-15 07:17] LABS: Basophils # (auto) 0 uL; Basophils % (auto) 0.5 % (0.0-2.0); Eosinophils # (auto) 0 uL; Eosinophils % (auto) 0.5 % (0.0-7.0); Hematocrit 45.8 % (36.0-46.0); Hemoglobin 15.1 g/dL (12.2-16.2); Lymphocytes # (auto) 2.1 uL; Lymphocytes % (auto) 23.7 % (10.0-50.0); Mean Corpuscular Hemoglobin 29.2 pg (28.0-32.0); Mean Corpuscular Volume 88.5 fL (80.0-100.0); Monocytes # (auto) 0.4 uL; Monocytes % (auto) 5.1 % (0.0-12.0); Neutrophils # (auto) 6.1 uL; Neutrophils % (auto) 70.2 % (37.0-80.0); Nucleated Red Blood Cells % 0.1 %; Platelet Count (auto) 204 10^3/uL (140-450); Red Blood Cells 5.18 10^6/uL (4.0-5.20); Red Cell Distribution Width 14.3 % (11.8-14.3); White Blood Cell 8.7 10^3/uL (4.4-10.8)
--- NOTE | 2019-02-15 07:20 | NUR ---
CHEST PAIN PT C/O WORSENING CHEST PAIN, 05/23. EKG PERFORMED, NSR 97. SECOND DOSE OF MORPHINE GIVEN. PT STATES MORPHINE "DOESN'T HELP" BUT "I'LL TRY ANYTHING AT THIS POINT." REFUSES NITRO AND STATES "IT MAKES MY HEADACHE WAY WORSE." WILL CONTINUE TO MONITOR. MD DURANT ALREADY AWARE.
[2019-02-15 07:39] VITALS: BP 145/99
--- NOTE | 2019-02-15 07:40 | NUR ---
OPENING SHIFT NOTE ASSUMED CARE OF PATIENT FROM SET UP MACHINIST FAROOQ SALEH. PATIENT IS AWAKE AND ALERT X4. PATIENT HAS NO S/S OF DISTRESS/SOB. PATIENT HAD CHEST PAIN THAT SET UP MACHINIST RN DELFINO ALREADY ADDRESSED AND GAVE MORPHINE. PATIENT STATES SHE IS HAVING CHEST PAIN 7/10 NON RADIATING, EKG ALREADY DONE. INSTRUCTED PATIENT ON POC, PATIENT VERBALIZED UNDERSTANDING, BED IS IN LOWEST POSITION WITH SIDE RAILS RAISED X2, BED WHEELS LOCKED, AND CALL LIGHT IS WITHIN REACH. WILL CONTINUE TO MONITOR.
[2019-02-15 07:44] LABS: Potassium 3.3 mmol/L (3.5-5.1); Sodium 144 mmol/L (136-145)
[2019-02-15 07:45] LABS: Anion Gap 8 (5-15); BUN/Creatinine Ratio 12.3; Blood Urea Nitrogen 10 mg/dL (7-18); Carbon Dioxide 26 mmol/L (21-32); Chloride 110 mmol/L (98-107); GFR African American 93 mL/min; GFR Non-African American 77 mL/min; Glucose 111 mg/dL (74-106)
[2019-02-15 07:46] LABS: Calcium 9.6 mg/dL (8.5-10.1)
[2019-02-15 08:13] VITALS: BP 145/99
[2019-02-15] MEDS ORDERED: METOPROLOL TARTRATE 25 MG TAB PO SCH ×2 (10:00)
[2019-02-15] MEDS ORDERED: POTASSIUM CHL 20 Meq TABLET PO SCH ×2 (10:00→22:00)
[2019-02-15] MEDS: ASPirin 81 mg TAB PO SCH (10:25)
[2019-02-15] MEDS: CLOPIDOGREL BISULFATE 75 MG TAB PO SCH (10:25)
[2019-02-15] MEDS: FAMOTIDINE 20 MG TAB PO SCH (10:26)
[2019-02-15] MEDS: amLODIPine BESYLATE 5 MG TAB PO SCH (10:26)
[2019-02-15] MEDS: FUROSEMIDE 40 MG TAB PO SCH (10:27)
[2019-02-15] MEDS: BACLOFEN 10 MG TAB PO SCH (10:27)
[2019-02-15] MEDS: LISINOPRIL 20 MG TAB PO SCH (10:27)
[2019-02-15] MEDS: LEVETIRACETAM 500 MG TAB PO SCH (10:27)
[2019-02-15] MEDS: OXYCODONE W/ ACETAMINOPHEN 5/325MG TABLET PO PRN (10:28)
--- NOTE | 2019-02-15 10:40 | NUR ---
SPOKE WITH MD DURANT. UPDATED MD ON PATIENT'S STATUS INCLUDING POTASSIUM LEVEL, CHEST PAIN, AND PATIENT IS REQUESTING A NEW DOCTOR. MD SPOKE WITH PATIENT. PATIENT AGREED TO DISCHARGE.
[2019-02-15] MEDS ORDERED: POTASSIUM CHL 20 Meq TABLET PO ONE (11:00)
[2019-02-15] MEDS ORDERED: HYDR-4296 PO (11:54)
[2019-02-15] MEDS ORDERED: MET25T PO (11:54)
[2019-02-15] MEDS ORDERED: POTA10TA51 PO (11:54)
[2019-02-15] MEDS ORDERED: FURO40TA4 PO (11:54)
[2019-02-15 12:31] VITALS: BP 150/99
--- NOTE | 2019-02-15 14:00 | NUR ---
PATIENT GIVEN INFO ON MD PATEL.
[2019-02-15] MEDS ORDERED: POTASSIUM EFFERVESENT TAB 25 MEQ GT ONE (14:30)
--- NOTE | 2019-02-15 14:50 | NUR ---
Discharge instructions given as ordered. Encourage to follow up with PMD as instructed. All questions and concerns addressed. Patient verbalized understanding. Medication reconciliation form completed and copy given to patient. IV removed with catheter intact, pressure dressing applied. Telemetry unit returned to ICU. Patient ambulated to dr. leiva's office accompanied by family member. No distress noted at time of departure.
== END 2019-02-15 14:50 | disposition home or self-care (01) | DRG 199 ==
LOC: ER 17:16 → TELE 17:17 → MERGE 17:17 → TELE-WESTW 22:59
PROVIDERS: ADMIT Nurse Practitioner; ATTEND Internal Medicine
DX: I16.0 Hypertensive urgency (principal); I27.21 Secondary pulmonary arterial hypertension; I25.10 Atherosclerotic heart disease of native coronary artery without angina pectoris; G43.909 Migraine, unspecified, not intractable, without status migrainosus; E87.6 Hypokalemia; E78.5 Hyperlipidemia, unspecified; G89.4 Chronic pain syndrome; I10 Essential (primary) hypertension; I71.4 Abdominal aortic aneurysm, without rupture; Z88.8 Allergy status to other drugs, medicaments and biological substances; Z95.5 Presence of coronary angioplasty implant and graft; I25.2 Old myocardial infarction
CPT/HCPCS: 36415; 70450; 71045; 71260; 80048; 80053; 83735; 84132; 84484; 85025; 87081; 93005; 93306; 96361; 96374; G0378; J3480

== ENCOUNTER → 2019-02-26 | Outpatient (CLI) | payer MEDICAID ==
[~2019-02-26] MED LIST changes: +ACE650RS PO; +ASPI81TA27 PO; +BISA10SU52 PO; +CYAN100L PO; +DOCU1CAP31 PO; +FURO40TA4 PO; +HYDR-4296 PO; +IOHEXOL 350 MG/ML 100ML IJ ONE; +LEVE500T22 PO; +LISI-646 PO; +MELA3TAB27 PO; +MET25T PO; +PERCOT PO; +POTA10TA51 PO; +PREN-96 PO; +SUCR1TAB PO; +ZOLP10TA PO; +[UNRECOGNIZED DRUG - CODE] PO
== END | disposition home or self-care (01) ==
LOC: MERGE 11:00 → CT 11:06
PROVIDERS: ATTEND Internal Medicine
DX: I70.0 Atherosclerosis of aorta (principal); I27.20 Pulmonary hypertension, unspecified; I25.10 Atherosclerotic heart disease of native coronary artery without angina pectoris; I73.9 Peripheral vascular disease, unspecified
CPT/HCPCS: 75635; Q9967

== ENCOUNTER 2019-03-07 11:35 | Emergency (ER) | payer MEDICAID ==
[~2019-03-07] VITALS: Ht 154.9 cm; Wt 66.7 kg
[~2019-03-07 11:35] MED LIST changes: -AMLO5TAB13 PO; +AMLO5TAB15 PO; +ASPI-404 PO; -ASPI81TA27 PO; -IOHEXOL 350 MG/ML 100ML IJ ONE
[2019-03-07 11:49] VITALS: BP 153/98
[2019-03-07] MEDS ORDERED: KETOROLAC TROMETH 60MG/2ML VIAL IM ONE (12:45)
[2019-03-07] MEDS ORDERED: PROMETHAZINE HCL 25 MG/ML 1ML IM ONE (12:45)
[2019-03-07] MEDS ORDERED: diphenhdrAMINE HCL 25 MG CAP PO ONE (12:45)
== END 2019-03-07 13:50 | disposition home or self-care (01) ==
LOC: ER 11:35
DX: G43.909 Migraine, unspecified, not intractable, without status migrainosus (principal); B37.9 Candidiasis, unspecified; E78.5 Hyperlipidemia, unspecified; I10 Essential (primary) hypertension; Z98.61 Coronary angioplasty status; Z88.1 Allergy status to other antibiotic agents; Z79.2 Long term (current) use of antibiotics; Z79.82 Long term (current) use of aspirin; Z79.899 Other long term (current) drug therapy
CPT/HCPCS: 96372; 99283; J1885; J2550

== ENCOUNTER 2019-03-08 18:48 | Emergency (ER) | payer MEDICAID ==
[~2019-03-08] VITALS: Ht 154.9 cm; Wt 68.0 kg
[2019-03-08 21:44] VITALS: BP 131/92
[2019-03-08] MEDS ORDERED: BACLOFEN 10 MG TAB PO ONE (21:45)
== END 2019-03-08 22:38 | disposition home or self-care (01) ==
LOC: ER 18:55
DX: G44.209 Tension-type headache, unspecified, not intractable (principal); I25.10 Atherosclerotic heart disease of native coronary artery without angina pectoris; E78.5 Hyperlipidemia, unspecified; I10 Essential (primary) hypertension; Z88.1 Allergy status to other antibiotic agents; Z79.82 Long term (current) use of aspirin; Z79.01 Long term (current) use of anticoagulants; Z79.899 Other long term (current) drug therapy; Z98.61 Coronary angioplasty status

== ENCOUNTER 2019-03-31 16:05 | Emergency (ER) | payer MEDICAID ==
[~2019-03-31] VITALS: Ht 154.9 cm; Wt 67.6 kg
[2019-03-31] MEDS ORDERED: cloNIDine 0.1 mg/24hr 7 DAY PATCH TD ONE (20:00)
[2019-03-31] MEDS ORDERED: amLODIPine BESYLATE 5 MG TAB PO ONE (20:00)
[2019-03-31] MEDS ORDERED: cloNIDine HCL 0.1 MG TAB PO ONE (20:08)
[2019-03-31] MEDS ORDERED: KETOROLAC TROMETH 60MG/2ML VIAL IM ONE (20:15)
[2019-03-31 20:49] VITALS: BP 147/91
== END 2019-03-31 21:09 | disposition home or self-care (01) ==
LOC: ER 16:05
DX: G43.909 Migraine, unspecified, not intractable, without status migrainosus (principal); E78.5 Hyperlipidemia, unspecified; I10 Essential (primary) hypertension; Z98.61 Coronary angioplasty status; Z76.0 Encounter for issue of repeat prescription
CPT/HCPCS: 93005; 96372; 99283; J1885

== ENCOUNTER 2019-06-04 14:18 | Inpatient (IN) | payer MEDICAID ==
[~2019-06-04] VITALS: Ht 154.9 cm; Wt 67.5 kg
[2019-06-04 16:36] LABS: Basophils # (auto) 0 uL; Basophils % (auto) 0.6 % (0.0-2.0); Eosinophils # (auto) 0 uL; Eosinophils % (auto) 0.4 % (0.0-7.0); Hematocrit 49.3 % (36.0-46.0); Hemoglobin 15.9 g/dL (12.2-16.2); Lymphocytes # (auto) 1.6 uL; Lymphocytes % (auto) 22.8 % (10.0-50.0); Mean Corpuscular Hemoglobin 30.1 pg (28.0-32.0); Mean Corpuscular Hgb Conc. 32.3 g/dL (32.0-36.0); Mean Corpuscular Volume 93.1 fL (80.0-100.0); Monocytes # (auto) 0.3 uL; Monocytes % (auto) 4.8 % (0.0-12.0); Neutrophils # (auto) 4.9 uL; Neutrophils % (auto) 71.4 % (37.0-80.0); Platelet Count (auto) 148 10^3/uL (140-450); Red Blood Cells 5.29 10^6/uL (4.0-5.20); Red Cell Distribution Width 14.2 % (11.8-14.3); White Blood Cell 6.9 10^3/uL (4.4-10.8)
[2019-06-04 16:40] LABS: Urine Bacteria FEW /hpf (None Seen); Urine Blood Negative /uL (Negative); Urine Mucus FEW (None Seen); Urine Specific Gravity 1.022 (1.001-1.035); Urine WBC 38 /hpf (0 - 5)
[2019-06-04 16:51] LABS: INR 1.06 (0.9-1.15); Partial Thromboplastin Time 25.4 sec (23.64-32.05)
[2019-06-04 16:53] LABS: Albumin 4.4 g/dL (3.4-5.0); Calcium 10.4 mg/dL (8.5-10.1); Potassium 3.8 mmol/L (3.5-5.1)
[2019-06-04 16:56] LABS: BUN/Creatinine Ratio 12.5; Bilirubin, Total 0.3 mg/dL (0.2-1.0); Total Protein 8.7 g/dL (6.4-8.2)
[2019-06-04] MEDS ORDERED: NITROFURANTOIN (MONO) 100 mg CAP PO ONE (17:00)
[2019-06-04] MEDS ORDERED: MORPHINE SULFATE 4 MG/ML SYR/VIAL IV PRN (18:45)
[2019-06-04] MEDS ORDERED: ZOLPIDEM TARTRATE 5 MG TAB PO PRN (18:45)
[2019-06-04] MEDS ORDERED: MORPHINE SULF INJ 2 MG/ML SYRINGE 1ML IV PRN (18:45)
[2019-06-04] MEDS ORDERED: NITROGLYCERIN 0.4 MG SL TAB SL PRN (18:45)
[2019-06-04 21:15] VITALS: BP 178/112
--- NOTE | 2019-06-04 21:30 | NUR ---
Telemetry admit from ER BENY QUIGLEYS admitted to Telemetry unit. Patient oriented to Cheryl quesada RN, unit, room, bed, and unit policies regarding patient care and visiting hours. Patient now on continuous telemetry monitoring, tele box #59 and telemetry reading on arrival to unit is SINUS RHYTHM. Patient placed on bedside oxygen, weighed by bed scale and encouraged to call if they need something. All questions and concerns addressed, patient verbalized understanding.
[2019-06-04] MEDS: HYDROcodone-ACET 5/325MG TAB PO PRN (21:49)
[2019-06-04] MEDS: LEVETIRACETAM 500 MG TAB PO SCH (21:49)
[2019-06-04] MEDS: DOCUSATE SOD 100 MG CAP PO SCH (21:49)
[2019-06-04] MEDS: METOPROLOL TARTRATE 50 MG TAB PO SCH (21:50)
[2019-06-04 22:00] VITALS: BP 178/112
[2019-06-04] MEDS ORDERED: LOSA-39 PO (23:16)
[2019-06-04] MEDS ORDERED: DULO20CA PO (23:17)
[2019-06-04] MEDS ORDERED: DOXA4TAB5 PO (23:17)
[2019-06-04] MEDS: hydrALAZINE HCL 20 MG/ML VL IV SCH (23:38)
[2019-06-05] VITALS (8 sets, daily range): BP systolic 148–164; BP diastolic 91–105
[2019-06-05] MEDS: MORPHINE SULF INJ 2 MG/ML SYRINGE 1ML IV PRN ×3 (02:41→19:48)
[2019-06-05] MEDS: hydrALAZINE HCL 20 MG/ML VL IV SCH ×3 (05:44→18:25)
[2019-06-05] MEDS: HYDROcodone-ACET 5/325MG TAB PO PRN ×2 (05:53→17:28)
--- NOTE | 2019-06-05 06:58 | NUR ---
CLOSING PATIENT IS RESTING IN BED. NO S/S OF DISTRESS NOTED. CALL LIGHT WITHIN REACH WILL ENDORSE CARE TO DAY SHIFT RN
[2019-06-05] MEDS: cefTRIAXone 1GM/50ML D5W 50 ML IV SCH (09:02)
[2019-06-05] MEDS: amLODIPine BESYLATE 5 MG TAB PO SCH (09:03)
[2019-06-05] MEDS: CLOPIDOGREL BISULFATE 75 MG TAB PO SCH (09:03)
[2019-06-05] MEDS: BACLOFEN 10 MG TAB PO SCH (09:04)
[2019-06-05] MEDS: DOCUSATE SOD 100 MG CAP PO SCH ×2 (09:04→22:13)
[2019-06-05] MEDS: FUROSEMIDE 40 MG TAB PO SCH (09:04)
[2019-06-05] MEDS: LOSARTAN POTASSIUM 50 MG TAB PO SCH (09:05)
[2019-06-05] MEDS: ASPirin-EC 81 mg tab PO SCH (09:05)
[2019-06-05] MEDS: METOPROLOL TARTRATE 50 MG TAB PO SCH ×2 (09:05→22:13)
[2019-06-05] MEDS: DULoxetine HCL 30 MG CAP PO SCH (09:06)
[2019-06-05] MEDS: LEVETIRACETAM 500 MG TAB PO SCH ×2 (09:06→22:13)
[2019-06-05] MEDS ORDERED: PRAVASTATIN SODIUM 20 MG TAB PO SCH (10:00)
[2019-06-05 11:12] LABS: Basophils # (auto) 0 uL; Basophils % (auto) 0.4 % (0.0-2.0); Eosinophils # (auto) 0 uL; Eosinophils % (auto) 0.2 % (0.0-7.0); Hematocrit 44.5 % (36.0-46.0); Hemoglobin 14.8 g/dL (12.2-16.2); Lymphocytes # (auto) 1.3 uL; Lymphocytes % (auto) 16.9 % (10.0-50.0); Mean Corpuscular Hemoglobin 30.6 pg (28.0-32.0); Mean Corpuscular Hgb Conc. 33.2 g/dL (32.0-36.0); Mean Corpuscular Volume 92.1 fL (80.0-100.0); Monocytes # (auto) 0.4 uL; Monocytes % (auto) 5.7 % (0.0-12.0); Neutrophils # (auto) 5.8 uL; Neutrophils % (auto) 76.8 % (37.0-80.0); Nucleated Red Blood Cells % 0.2 %; Platelet Count (auto) 147 10^3/uL (140-450); Red Blood Cells 4.83 10^6/uL (4.0-5.20); White Blood Cell 7.5 10^3/uL (4.4-10.8)
[2019-06-05 11:32] LABS: Albumin 3.8 g/dL (3.4-5.0); Calcium 9.5 mg/dL (8.5-10.1); Magnesium 2.3 mg/dL (1.6-2.6); Potassium 3.4 mmol/L (3.5-5.1)
[2019-06-05 11:35] LABS: BUN/Creatinine Ratio 14.3; Bilirubin, Total 0.3 mg/dL (0.2-1.0); Total Protein 7.5 g/dL (6.4-8.2)
[2019-06-05] MEDS: METOPROLOL TARTRATE 1MG/1ML-5ML VIAL IV SCH ×2 (12:42→18:25)
[2019-06-05] MEDS: MECLIZINE HCL 25 MG TAB PO PRN (12:43)
--- NOTE | 2019-06-05 12:48 | NUR ---
VERIFIED MEDICATIONS WITH MD MD PATEL VERBALIZED IT IS OKAY FOR METOPROLOL AND HYDRALAZINE TO BE GIVEN AT SAME TIME FRAME. WILL CONTINUE TO MONITOR
[2019-06-05] MEDS ORDERED: ZOLPIDEM TARTRATE 5 MG TAB PO PRN (14:45)
--- NOTE | 2019-06-05 19:30 | NUR ---
OPENING NOTE REPORT RECEIVED FROM DAY SHIFT RN PATIENT IS A/OX4 RESTING IN BED. PATIENT STILL C/O MIGRAINE, STATES NOTHING HAS HELPED. BP RECHECKED AND NOW AT 145/100, HEART RATE 114BPM. PATIENT JUST AMBULATED BACK TO BED FROM BATHROOM WITHOUT INCIDENT. MEDICATIONS DISCUSSED FOR TONIGHT. POC DISCUSSED AND ALL QUESTIONS ANSWERED. CALL LIGHT WITHIN REACH. FALL PRECAUTIONS IN PLACE.
[2019-06-05] MEDS ORDERED: LORazepam 2MG/ML-1ML VIAL IV PRN ×2 (21:00→21:15)
[2019-06-05] MEDS ORDERED: FIORICET PO SCH (22:00)
[2019-06-05] MEDS ORDERED: AMITRIPTYLINE HCL 25 MG TAB PO SCH (22:00)
[2019-06-05] MEDS: AMITRIPTYLINE HCL 25 MG TAB PO SCH (22:13)
[2019-06-05] MEDS: DOXAZOSIN MESYL 2 MG TAB PO SCH (22:13)
--- NOTE | 2019-06-05 23:12 | NUR ---
SPOKE WITH BARREL LOADER PHARMACIST WHO CALLED [facility] METOPROLOL IV HAS BEEN PLACED ON HOLD AT THIS TIME DUE TO NO MONITORING PARAMETERS AND PHARMACIST WANTED CLARIFICATION IF IV METOPROLOL SHOULD BE PRN INSTEAD OF ON Q6H SCHEDULE WILL PAGE BARREL LOADER HOSPITALIST FOR TONIGHT FOR CLARIFICATION
[2019-06-06] MEDS ORDERED: METOPROLOL TARTRATE 1MG/1ML-5ML VIAL IV SCH
--- NOTE | 2019-06-06 | NUR ---
PAGED CENTRAL SUPPLY MANAGER HOSPITALIST RE:PATIENT WANTING SLEEPING PILL AND TO CLARIFY METOPROLOL IV ORDER THAT IS ON HOLD BY PHARMACY WILL WAIT FOR CALL BACK
[2019-06-06] MEDS: MECLIZINE HCL 25 MG TAB PO PRN (00:53)
[2019-06-06 05:00] VITALS: BP 153/100
[2019-06-06] MEDS: MORPHINE SULF INJ 2 MG/ML SYRINGE 1ML IV PRN (05:38)
[2019-06-06 06:22] LABS: Basophils # (auto) 0 uL; Basophils % (auto) 0.2 % (0.0-2.0); Eosinophils # (auto) 0 uL; Eosinophils % (auto) 0.2 % (0.0-7.0); Hematocrit 45.5 % (36.0-46.0); Hemoglobin 15.2 g/dL (12.2-16.2); Mean Corpuscular Hemoglobin 30.5 pg (28.0-32.0); Mean Corpuscular Hgb Conc. 33.5 g/dL (32.0-36.0); Monocytes # (auto) 0.5 uL; Monocytes % (auto) 6.9 % (0.0-12.0); Neutrophils # (auto) 5.2 uL; Neutrophils % (auto) 66.7 % (37.0-80.0); Platelet Count (auto) 145 10^3/uL (140-450); Red Cell Distribution Width 14.3 % (11.8-14.3); White Blood Cell 7.8 10^3/uL (4.4-10.8)
[2019-06-06 06:43] LABS: Albumin 3.8 g/dL (3.4-5.0); Calcium 9.4 mg/dL (8.5-10.1); Magnesium 2.1 mg/dL (1.6-2.6)
[2019-06-06 06:46] LABS: BUN/Creatinine Ratio 10.4; Bilirubin, Total 0.4 mg/dL (0.2-1.0); Total Protein 7.5 g/dL (6.4-8.2)
[2019-06-06 06:50] LABS: Potassium 2.9 mmol/L (3.5-5.1)
--- NOTE | 2019-06-06 06:50 | NUR ---
RECEIVED CRITICAL LAB VALUE FROM LAB PERSONNEL DIANA CRITICAL POTASSIUM LEVEL OF 2.9 WILL PAGE HOSPITALIST
--- NOTE | 2019-06-06 06:52 | NUR ---
HOSPITALIST PAGED REGARDING CRITICAL POTASSIUM LEVEL WILL WAIT FOR CALL BACK
--- NOTE | 2019-06-06 07:04 | NUR ---
CLOSING REPORT ENDORSED TO DAY SHIFT RN NO CALL BACK FROM HOSPITALIST AT THIS TIME. CRITICAL POTASSIUM ENDORSED TO DAY SHIFT RN PATIENT RESTING COMFORTABLY IN BED. CALL LIGHT WITHIN REACH
[2019-06-06] MEDS ORDERED: POTASSIUM CHL 20 Meq TABLET PO ONE ×2 (07:15→09:45)
--- NOTE | 2019-06-06 07:35 | NUR ---
Opening Note Received report from table games shift manager RN. Patient is awake, alert and oriented x4. No signs or symptoms of distress noted at this time. Patient denies pain at this time. Patient is on room air, respirations even and unlabored. Reviewed plan of care with patient, patient verbalized understanding. Bed in low and locked position, call light within reach. Will continue to monitor Q1 hour and PRN.
[2019-06-06] MEDS: cefTRIAXone 1GM/50ML D5W 50 ML IV SCH (08:09)
[2019-06-06 08:43] LABS: Hepatitis B Surface Antibody Negative
[2019-06-06 09:00] VITALS: BP 163/103
[2019-06-06 09:19] LABS: Hepatitis A Total Antibody Negative
[2019-06-06] MEDS: DOCUSATE SOD 100 MG CAP PO SCH ×2 (09:27→22:01)
[2019-06-06] MEDS: ASPirin-EC 81 mg tab PO SCH (09:27)
[2019-06-06] MEDS: BACLOFEN 10 MG TAB PO SCH (09:27)
[2019-06-06] MEDS: LEVETIRACETAM 500 MG TAB PO SCH ×2 (09:27→22:00)
[2019-06-06] MEDS: DULoxetine HCL 30 MG CAP PO SCH (09:27)
[2019-06-06] MEDS: FUROSEMIDE 40 MG TAB PO SCH (09:27)
[2019-06-06] MEDS: amLODIPine BESYLATE 5 MG TAB PO SCH (09:28)
[2019-06-06] MEDS: METOPROLOL TARTRATE 50 MG TAB PO SCH ×2 (09:28→22:00)
[2019-06-06] MEDS: LOSARTAN POTASSIUM 50 MG TAB PO SCH (09:29)
[2019-06-06] MEDS: CLOPIDOGREL BISULFATE 75 MG TAB PO SCH (09:29)
[2019-06-06 09:44] LABS: Hepatitis B Core Total AB Negative; Hepatitis B Surface Antigen Negative (Negative)
[2019-06-06 09:45] LABS: Hepatitis C Antibody Negative (Negative)
[2019-06-06] MEDS ORDERED: LABETALOL INJECTION 250 MG in SODIUM CHL 0.9% 200 ML IV ONE (09:45)
--- NOTE | 2019-06-06 10:28 | NUR ---
1028Dr. Richard at bedside Updating patient on plan of care. Will continue to monitor Q1 hour and PRN.
[2019-06-06] MEDS ORDERED: HCTZ 25 MG TAB PO ONE (10:45)
[2019-06-06] MEDS ORDERED: METOPROLOL TARTRATE 1MG/1ML-5ML VIAL IV PRN (10:45)
[2019-06-06] MEDS ORDERED: METOPROLOL TARTRATE 50 MG TAB PO ONE (10:45)
[2019-06-06] MEDS: LORazepam 0.5 MG TAB PO PRN ×2 (11:37→20:58)
--- NOTE | 2019-06-06 12:35 | NUR ---
Blood pressure reassessment Blood pressure 153/99, heart rate 70. Will continue to monitor Q1 hour and PRN.
[2019-06-06 13:00] VITALS: BP 152/104
--- NOTE | 2019-06-06 14:17 | NUR ---
Blood Pressure blood pressure assessed 159/105, heart rate 88. Will update Dr. Ramos. Will continue to monitor Q1 hour and PRN.
--- NOTE | 2019-06-06 15:42 | NUR ---
Patient taken down for MRI
--- NOTE | 2019-06-06 16:13 | NUR ---
Patient back from MRI
[2019-06-06 17:00] VITALS: BP 144/109
--- NOTE | 2019-06-06 19:10 | NUR ---
Closing Note Report given to caustic cresylate shift superintendent RN. No signs or symptoms of distress noted at this time.
--- NOTE | 2019-06-06 19:38 | NUR ---
OPENING NOTE REPORT RECEIVED FROM DAY SHIFT RN PATIENT IS A/OX4 RESTING IN BED. PATIENTS SISTER AT BEDSIDE. PATIENT AWAITING EEG. POC FOR TONIGHT DISCUSSED AND ALL QUESTIONS ANSWERED. CALL LIGHT WITHIN REACH.
--- NOTE | 2019-06-06 21:18 | NUR ---
IV insertion IV access obtained, via clean sterile technique by inserting 20 gauge catheter at LEFT HAND after 3 attempt(s). IV secured properly. No trauma to site. Patient tolerated well.
--- NOTE | 2019-06-06 21:19 | NUR ---
CALLED RADIOLOGY TO NOTIFY THEM PATIENT NOW HAS 20G IV FOR CT ANGIO NOBODY AVAILABLE TO GET PATIENT AT THIS TIME
--- NOTE | 2019-06-06 21:49 | NUR ---
RECEIVED CALL BACK FROM RADIOLOGY IV TO LEFT HAND NOT ADEQUATE FOR CT ANGIO UNABLE TO GET ANY OTHER 20G ACCESS AT THIS TIME WILL SPEAK WITH PATIENT ABOUT POSSIBLE MIDLINE
--- NOTE | 2019-06-06 21:54 | NUR ---
SPOKE WITH DRILLER'S ASSISTANT DOMINQUE REGARDING ALDOMET NOT AVAILABLE AT THIS TIME IN MEDICATION [facility]. PER LARISSA, "MEDICATION IS NOT AVAILABLE AND IS ORDERED TO BE HERE TOMORROW AFTER 10AM"
[2019-06-06] MEDS: METHYLDOPA 250 MG TAB PO SCH (22:00)
[2019-06-06] MEDS: AMITRIPTYLINE HCL 25 MG TAB PO SCH (22:01)
[2019-06-06] MEDS: DOXAZOSIN MESYL 2 MG TAB PO SCH (22:01)
--- NOTE | 2019-06-06 22:26 | NUR ---
PATIENT REFUSING ANY OTHER ATTEMPT AT IV LINE FOR CT ANGIO EDUCATED PATIENT ON THE NEED FOR ANOTHER LINE TO GET CONTRAST IN FOR PROCEDURE AND THAT NEW IV TO LEFT HAND IS NOT A GOOD POSITION. PATIENT UPSET AND REFUSING ANY MORE IV ATTEMPTS PATIENT STATES, "I'VE BEEN POKED THREE TIMES, THATS ENOUGH. I JUST WANT TO RELAX AND TRY AND SLEEP"
[2019-06-06 23:28] VITALS: BP_SYST 144; BP_SYST 160; BP_DIAS 100; BP_DIAS 107
[2019-06-07] MEDS: ZOLPIDEM TARTRATE 5 MG TAB PO PRN (00:51)
[2019-06-07 04:58] LABS: Basophils # (auto) 0.1 uL; Basophils % (auto) 0.8 % (0.0-2.0); Eosinophils # (auto) 0.2 uL; Eosinophils % (auto) 2.1 % (0.0-7.0); Hematocrit 48.2 % (36.0-46.0); Hemoglobin 16.1 g/dL (12.2-16.2); Lymphocytes # (auto) 3.1 uL; Lymphocytes % (auto) 35.3 % (10.0-50.0); Mean Corpuscular Hgb Conc. 33.5 g/dL (32.0-36.0); Mean Corpuscular Volume 92.6 fL (80.0-100.0); Monocytes # (auto) 0.6 uL; Monocytes % (auto) 7.4 % (0.0-12.0); Neutrophils # (auto) 4.7 uL; Neutrophils % (auto) 54.4 % (37.0-80.0); Nucleated Red Blood Cells % 0.2 %; Platelet Count (auto) 156 10^3/uL (140-450); Red Cell Distribution Width 14.3 % (11.8-14.3); White Blood Cell 8.7 10^3/uL (4.4-10.8)
[2019-06-07 05:32] VITALS: BP 134/92
[2019-06-07 05:36] LABS: Albumin 3.8 g/dL (3.4-5.0); BUN/Creatinine Ratio 12.2; Bilirubin, Total 0.5 mg/dL (0.2-1.0); Calcium 9.4 mg/dL (8.5-10.1); Magnesium 2.2 mg/dL (1.6-2.6); Potassium 3.6 mmol/L (3.5-5.1); Total Protein 7.3 g/dL (6.4-8.2)
[2019-06-07] MEDS: METHYLDOPA 250 MG TAB PO SCH ×3 (06:00→21:48)
--- NOTE | 2019-06-07 07:00 | NUR ---
CLOSING PATIENT SLEEPING AT THIS TIME. NO S/S OF DISTRESS NOTED. CALL LIGHT WITHIN REACH
--- NOTE | 2019-06-07 07:30 | NUR ---
Opening Note Received report from shift supervisor rn RN. Patient is awake, alert and oriented x4. No signs or symptoms of distress noted at this time. Patient denies pain at this time. Patient is on room air, respirations even and unlabored. Reviewed plan of care with patient, patient verbalized understanding. Bed in low and locked position, call light within reach. Will continue to monitor Q1 hour and PRN.
[2019-06-07] MEDS: cefTRIAXone 1GM/50ML D5W 50 ML IV SCH (07:57)
[2019-06-07 09:00] VITALS: BP 151/94
[2019-06-07] MEDS: MORPHINE SULF INJ 2 MG/ML SYRINGE 1ML IV PRN (09:18)
--- NOTE | 2019-06-07 09:20 | NUR ---
IV Insertion IV access obtained, via clean sterile technique by inserting 20 gauge catheter at left AC after one attempt. IV secured properly. No trauma to site. Patient tolerated well. Will continue to monitor Q1 hour and PRN.
[2019-06-07] MEDS ORDERED: IOHEXOL 350 MG/ML 100ML IJ ONE (09:50)
--- NOTE | 2019-06-07 09:50 | NUR ---
Patient taken down for CT angio
[2019-06-07] MEDS ORDERED: DILTIAZEM HCL 120MG ER CAP PO ONE (10:15)
--- NOTE | 2019-06-07 10:40 | NUR ---
Patient back to room
--- NOTE | 2019-06-07 10:55 | NUR ---
Dr. Ramos at bedside Updating patient on plan of care. Will continue to monitor Q1 hour and PRN.
[2019-06-07] MEDS: DULoxetine HCL 30 MG CAP PO SCH (11:00)
[2019-06-07] MEDS: BACLOFEN 10 MG TAB PO SCH (11:00)
[2019-06-07] MEDS: LOSARTAN POTASSIUM 50 MG TAB PO SCH (11:01)
[2019-06-07] MEDS: DOCUSATE SOD 100 MG CAP PO SCH ×2 (11:01→21:46)
[2019-06-07] MEDS: HCTZ 25 MG TAB PO SCH (11:01)
[2019-06-07] MEDS: METOPROLOL TARTRATE 50 MG TAB PO SCH ×2 (11:02→21:49)
[2019-06-07] MEDS: CLOPIDOGREL BISULFATE 75 MG TAB PO SCH (11:02)
[2019-06-07] MEDS: LEVETIRACETAM 500 MG TAB PO SCH ×2 (11:02→21:46)
[2019-06-07] MEDS: ASPirin-EC 81 mg tab PO SCH (11:02)
[2019-06-07] MEDS: LORazepam 0.5 MG TAB PO PRN ×2 (12:12→20:32)
[2019-06-07] MEDS: FUROSEMIDE 40 MG TAB PO SCH (12:20)
--- NOTE | 2019-06-07 12:50 | NUR ---
Patient unable to have renal ultrasound today. Call from cardiac cath lab radiology technologist, Patient needs to be NPO for 8hrs. Tech states patient to have ultrasound tomorrow morning.
[2019-06-07 13:00] VITALS: BP 154/113
[2019-06-07] MEDS ORDERED: SUCRALFATE 1 GM/10 ML ORAL SUSP PO SCH (14:15)
[2019-06-07] MEDS ORDERED: PANTOPRAZOLE 40 MG TAB PO SCH (14:15)
--- NOTE | 2019-06-07 14:24 | NUR ---
NUTRITION ASSESSMENT NOTES Please refer to link notes of nutrition screen form filed under the intervention section of the plan of care for further details. Est. Needs: 1350 kcal to 1650 kcal (20-25 kcal/kgBW), 53 gms to 66 gms pro (0.8-1.0 gms/kgBW). Will continue to monitor pertinent labs and reassess nutrient need prn Thank you. Addendum: 06/07/19 at [address] Amended: Links added.
[2019-06-07 17:14] VITALS: BP 135/93
[2019-06-07] MEDS: SUCRALFATE 1 GM/10 ML ORAL SUSP PO SCH ×2 (18:01→21:47)
--- NOTE | 2019-06-07 19:05 | NUR ---
Closing Note Report given to restaurant shift supervisor RN. No signs or symptoms of distress noted at this time.
--- NOTE | 2019-06-07 19:45 | NUR ---
RECEIVED PATIENT FROM DAY SHIFT RN. PATIENT RESTING IN BED. NO S/S OF DISTRESS NOTED. DENIED PAIN FOR NOW. REASSESSED BP 137/103, HR 102. POC INSTRUCTED AND ENCOURAGED PATIENT TO CALL FOR SKILLED NURSING CASE MANAGER IF NEEDED. BED IN LOWEST POSITION WITH PADDED SIDE RAILS UP X 2. SEIZURE PRECAUTION IN PLACE. CALL BENNETT WITHIN REACH. ALARM ON. CONTINUE TO MONITOR FOR CHANGES Q1H AND PRN.
[2019-06-07] MEDS: AMITRIPTYLINE HCL 25 MG TAB PO SCH (21:45)
[2019-06-07] MEDS: DOXAZOSIN MESYL 2 MG TAB PO SCH (21:46)
[2019-06-07] MEDS: PANTOPRAZOLE 40 MG TAB PO SCH (21:47)
--- NOTE | 2019-06-07 22:43 | NUR ---
REASSESSED BP 144/95, HR 85. CONTINUE TO MONITOR.
[2019-06-07 23:14] VITALS: BP 132/102
--- NOTE | 2019-06-08 00:03 | NUR ---
REINFORCED PATIENT NPO FROM NOW ON FOR U/S IN THE MORNING. PATIENT VERBALIZED UNDERSTANDING. CONTINUE TO MONITOR.
[2019-06-08] MEDS: ZOLPIDEM TARTRATE 5 MG TAB PO PRN (00:14)
--- NOTE | 2019-06-08 02:42 | NUR ---
PATIENT SLEEPING. NO S/S OF DISTRESS NOTED. BREATHING EVEN AND UNLABORED. CONTINUE CARE.
[2019-06-08 05:27] VITALS: BP_SYST 119; BP_SYST 141; BP_DIAS 81; BP_DIAS 88
[2019-06-08] MEDS: METHYLDOPA 250 MG TAB PO SCH ×3 (06:00→22:32)
[2019-06-08] MEDS: SUCRALFATE 1 GM/10 ML ORAL SUSP PO SCH ×4 (06:05→22:33)
--- NOTE | 2019-06-08 07:30 | NUR ---
OPENING NOTE ASSUMED CARE OF PT. ALERT AND ORIENTED. NO S/S SOB/DISTRESS NOTED. DENIES ANY PAIN. SAFETY PRECAUTIONS IN PLACE. BED SET TO LOWEST POSITION/LOCKED. BEDSIDE RAILS UP X2. CALL LIGHT WITHIN REACH. INSTRUCTED PT TO CALL FOR ASSISTANCE. UPDATED ON POC. PT VERBALIZED UNDERSTANDING. WILL CONTINUE TO MONITOR Q1HR AND PRN.
[2019-06-08] MEDS: DOCUSATE SOD 100 MG CAP PO SCH ×2 (09:05→22:34)
[2019-06-08] MEDS: ASPirin-EC 81 mg tab PO SCH (09:05)
[2019-06-08] MEDS: METOPROLOL TARTRATE 50 MG TAB PO SCH ×2 (09:06→22:35)
[2019-06-08] MEDS: DILTIAZEM HCL 120MG ER CAP PO SCH (09:07)
[2019-06-08] MEDS: HCTZ 25 MG TAB PO SCH (09:08)
[2019-06-08] MEDS: CLOPIDOGREL BISULFATE 75 MG TAB PO SCH (09:08)
[2019-06-08] MEDS: DULoxetine HCL 30 MG CAP PO SCH (09:08)
[2019-06-08] MEDS: PANTOPRAZOLE 40 MG TAB PO SCH ×2 (09:08→22:34)
[2019-06-08] MEDS: LEVETIRACETAM 500 MG TAB PO SCH ×2 (09:09→22:34)
[2019-06-08] MEDS: BACLOFEN 10 MG TAB PO SCH (09:09)
[2019-06-08] MEDS: FUROSEMIDE 40 MG TAB PO SCH (09:09)
[2019-06-08] MEDS: cefTRIAXone 1GM/50ML D5W 50 ML IV SCH (09:10)
[2019-06-08] MEDS: LOSARTAN POTASSIUM 50 MG TAB PO SCH (09:10)
[2019-06-08] MEDS: MORPHINE SULF INJ 2 MG/ML SYRINGE 1ML IV PRN ×2 (09:11→20:25)
[2019-06-08 09:49] VITALS: BP 131/97
--- NOTE | 2019-06-08 14:09 | NUR ---
EEG- ELECTROENCEPHALOGRAM COMPLETED ON 06/08/2019.
[2019-06-08 15:29] VITALS: BP 119/76
[2019-06-08 16:34] VITALS: BP 108/79
--- NOTE | 2019-06-08 18:55 | NUR ---
UA UA COLLECTED AND SENT TO LAB
[2019-06-08 19:38] LABS: Urine Bacteria FEW /hpf (None Seen); Urine Blood Negative /uL (Negative); Urine Hyaline Cast MANY /lpf (0 - 2); Urine Mucus FEW (None Seen); Urine Specific Gravity 1.028 (1.001-1.035); Urine WBC 23 /hpf (0 - 5)
[2019-06-08 22:00] VITALS: BP 112/79
[2019-06-08] MEDS: DOXAZOSIN MESYL 2 MG TAB PO SCH ×2 (22:00→22:34)
[2019-06-08] MEDS: AMITRIPTYLINE HCL 25 MG TAB PO SCH (22:34)
[2019-06-08] MEDS: LORazepam 0.5 MG TAB PO PRN (22:36)
[2019-06-09] MEDS: ZOLPIDEM TARTRATE 5 MG TAB PO PRN (00:19)
[2019-06-09 05:07] VITALS: BP 123/74
[2019-06-09] MEDS: METHYLDOPA 250 MG TAB PO SCH ×3 (06:00→22:00)
[2019-06-09] MEDS: SUCRALFATE 1 GM/10 ML ORAL SUSP PO SCH ×4 (06:23→21:30)
[2019-06-09 09:00] VITALS: BP 127/94
[2019-06-09] MEDS: ASPirin-EC 81 mg tab PO SCH (09:22)
[2019-06-09] MEDS: CLOPIDOGREL BISULFATE 75 MG TAB PO SCH (09:22)
[2019-06-09] MEDS: DULoxetine HCL 30 MG CAP PO SCH (09:23)
[2019-06-09] MEDS: LEVETIRACETAM 500 MG TAB PO SCH ×2 (09:23→21:29)
[2019-06-09] MEDS: DOCUSATE SOD 100 MG CAP PO SCH ×2 (09:24→21:30)
[2019-06-09] MEDS: BACLOFEN 10 MG TAB PO SCH (09:24)
[2019-06-09] MEDS: FUROSEMIDE 40 MG TAB PO SCH (09:24)
[2019-06-09] MEDS: PANTOPRAZOLE 40 MG TAB PO SCH ×2 (09:24→21:30)
[2019-06-09] MEDS: DILTIAZEM HCL 120MG ER CAP PO SCH (09:25)
[2019-06-09] MEDS: METOPROLOL TARTRATE 50 MG TAB PO SCH ×2 (09:26→22:00)
[2019-06-09] MEDS: HCTZ 25 MG TAB PO SCH (09:26)
[2019-06-09] MEDS: LOSARTAN POTASSIUM 50 MG TAB PO SCH (09:27)
[2019-06-09] MEDS: cefTRIAXone 1GM/50ML D5W 50 ML IV SCH (09:27)
[2019-06-09] MEDS: POTASSIUM CHL 20 Meq TABLET PO SCH (10:19)
[2019-06-09 13:00] VITALS: BP 139/79
[2019-06-09] MEDS: MORPHINE SULF INJ 2 MG/ML SYRINGE 1ML IV PRN ×2 (13:28→20:32)
[2019-06-09 17:00] VITALS: BP 126/84
[2019-06-09] MEDS: LORazepam 0.5 MG TAB PO PRN (17:03)
--- NOTE | 2019-06-09 19:22 | NUR ---
Report received from donnie TRIVEDI. POC reviewed.
--- NOTE | 2019-06-09 19:23 | NUR ---
ENDORSED CARE TO FAROOQ SMALLWOOD. NURSE MADE AWARE OF PENDING URINE CX.
--- NOTE | 2019-06-09 20:40 | NUR ---
Pt complained of migraine headache. Pain 05/23. Gave morphine as ordered.
[2019-06-09] MEDS: AMITRIPTYLINE HCL 25 MG TAB PO SCH (21:28)
[2019-06-09] MEDS: MECLIZINE HCL 25 MG TAB PO PRN (21:31)
[2019-06-09 21:40] VITALS: BP 127/87
[2019-06-09] MEDS: DOXAZOSIN MESYL 2 MG TAB PO SCH (22:00)
--- NOTE | 2019-06-10 | NUR ---
PT RESTING WITH EYES CLOSED. CALL LIGHT WITHIN REACH.
[2019-06-10] MEDS: ZOLPIDEM TARTRATE 5 MG TAB PO PRN (00:10)
--- NOTE | 2019-06-10 04:00 | NUR ---
PT RESTING WITH EYES CLOSED. CALL LIGHT WITHIN REACH.
[2019-06-10 05:32] VITALS: BP 144/84
[2019-06-10] MEDS: SUCRALFATE 1 GM/10 ML ORAL SUSP PO SCH ×4 (05:55→21:50)
[2019-06-10] MEDS: METHYLDOPA 250 MG TAB PO SCH ×3 (06:00→21:53)
[2019-06-10 06:28] LABS: Albumin 3.4 g/dL (3.4-5.0); Anion Gap 9 (5-15); BUN/Creatinine Ratio 28.3; Blood Urea Nitrogen 28 mg/dL (7-18); Calcium 8.7 mg/dL (8.5-10.1); Carbon Dioxide 30 mmol/L (21-32); Chloride 102 mmol/L (98-107); GFR African American 74 mL/min; GFR Non-African American 61 mL/min; Glucose 114 mg/dL (74-106); Sodium 141 mmol/L (136-145)
[2019-06-10 06:35] LABS: Alanine Aminotransferase 99 U/L (13-56); Alkaline Phosphatase 123 U/L (45-117); Aspartate Aminotransferase 31 U/L (15-37); Bilirubin, Total 0.4 mg/dL (0.2-1.0); Total Protein 7.4 g/dL (6.4-8.2)
[2019-06-10 06:48] LABS: Potassium 2.4 mmol/L (3.5-5.1)
--- NOTE | 2019-06-10 06:58 | NUR ---
pts potassium 2.4 hospitalist paged for orders
--- NOTE | 2019-06-10 07:05 | NUR ---
Report given to AFTAB TRIVEDI. POC reviewed.
--- NOTE | 2019-06-10 07:25 | NUR ---
Opening Shift Note Assumed care of patient, awake and alert. No S/S of distress/SOB or pain. Instructed on POC and verbalizes understanding. Bed in lowest position, Call light in reach. Will continue to monitor
[2019-06-10] MEDS ORDERED: POTASSIUM CHL 20 Meq TABLET PO ONE (07:30)
[2019-06-10 08:30] VITALS: BP 129/90
[2019-06-10] MEDS: cefTRIAXone 1GM/50ML D5W 50 ML IV SCH (09:23)
[2019-06-10] MEDS: LEVETIRACETAM 500 MG TAB PO SCH ×2 (09:23→21:49)
[2019-06-10] MEDS: ASPirin-EC 81 mg tab PO SCH (09:23)
[2019-06-10] MEDS: LOSARTAN POTASSIUM 50 MG TAB PO SCH (09:26)
[2019-06-10] MEDS: DOCUSATE SOD 100 MG CAP PO SCH ×2 (09:27→21:48)
[2019-06-10] MEDS: METOPROLOL TARTRATE 50 MG TAB PO SCH ×2 (09:27→21:49)
[2019-06-10] MEDS: DULoxetine HCL 30 MG CAP PO SCH (09:29)
[2019-06-10] MEDS: PANTOPRAZOLE 40 MG TAB PO SCH ×2 (09:29→21:49)
[2019-06-10] MEDS: HCTZ 25 MG TAB PO SCH (09:29)
[2019-06-10] MEDS: CLOPIDOGREL BISULFATE 75 MG TAB PO SCH (09:30)
[2019-06-10] MEDS: DILTIAZEM HCL 120MG ER CAP PO SCH (09:30)
[2019-06-10] MEDS: BACLOFEN 10 MG TAB PO SCH (09:31)
[2019-06-10] MEDS: FUROSEMIDE 40 MG TAB PO SCH (09:31)
[2019-06-10] MEDS: POTASSIUM CHL 20 Meq TABLET PO SCH (09:31)
--- NOTE | 2019-06-10 11:12 | NUR ---
Nutrition Follow-up Notes: Wt.: 65.0 kg Pt was sleeping with no family by bedside. per pt records pt with improved HTN. pt is currently on cardiac diet with fair PO of avg 605 x 5 per RN doc Est. Needs: 1350 kcal to 1650 kcal (20-25 kcal/kgBW), 53 gms to 66 gms pro (0.8-1.0 gms/kgBW). Will continue to monitor pertinent labs and reassess nutrient need prn Labs: BUN 28 H, GLU 114 H Skin: Ventura scale 21 low risk, pt's skin intact per gold leaf gilder. GI: Pt had 1 BM yesterday per gold leaf gilder. PES: Altered nutrition related lab values r/t current/chronic medical condition aeb hyperglycemia, hyperchloremia, elev. ALT, ALP levels Will continue to monitor PO intake, skin status, pertinent labs and weight trend. F/u in 3-5 days. Rec.: 1.) Continue close supervision with meals. 2.) Refer to RD for further nutrition educ. and weight monitoring upon discharge. 3.) Continue current plan of care.
--- NOTE | 2019-06-10 12:00 | NUR ---
at bedside Dr. Ramos at bedside discussing plan of care with patient and this RN. New orders given. Cardio consult to be recalled.
[2019-06-10] MEDS ORDERED: METOPROLOL TARTRATE 1MG/1ML-5ML VIAL IV ONE (12:15)
[2019-06-10 12:30] VITALS: BP_SYST 151; BP_DIAS 76; BP_DIAS 96
[2019-06-10] MEDS: HYDROcodone-ACET 10/325MG TAB PO PRN (12:58)
--- NOTE | 2019-06-10 13:50 | NUR ---
Re: at bedside Dr. Barrett at bedside. Patient is now complaining of stomach pain. Will give Levsin at ordered.
[2019-06-10] MEDS: HYOSCYAMINE SULF 0.125 MG ODT TAB PO PRN ×2 (13:56→18:00)
[2019-06-10 17:26] VITALS: BP 107/86
--- NOTE | 2019-06-10 18:53 | NUR ---
Closing Shift Note Patient is resting in bed. No distress noted. Patient has been medicated for abdominal pain. Will endorse care to the casino shift manager RN.
--- NOTE | 2019-06-10 19:40 | NUR ---
Opening Shift Note Assumed care of patient, awake and alert. No S/S of distress/SOB or pain. The patient c/o feeling anxious and requested Ativan. She also reports 8/10 head pain but stated that she did not want any pain medication at this time. Instructed on POC and to call for assist PRN, will continue to monitor for changes Q1hr and PRN.
[2019-06-10] MEDS: LORazepam 0.5 MG TAB PO PRN (19:47)
[2019-06-10] MEDS: AMITRIPTYLINE HCL 25 MG TAB PO SCH (21:49)
[2019-06-10] MEDS: DOXAZOSIN MESYL 2 MG TAB PO SCH (21:49)
[2019-06-10 21:53] VITALS: BP 122/84
[2019-06-11] MEDS: ZOLPIDEM TARTRATE 5 MG TAB PO PRN (01:18)
[2019-06-11 05:00] VITALS: BP 115/70
[2019-06-11 05:46] LABS: Basophils # (auto) 0 uL; Basophils % (auto) 0.5 % (0.0-2.0); Eosinophils # (auto) 0.2 uL; Eosinophils % (auto) 2.7 % (0.0-7.0); Hematocrit 43.6 % (36.0-46.0); Hemoglobin 14.8 g/dL (12.2-16.2); Lymphocytes # (auto) 2.9 uL; Lymphocytes % (auto) 34.8 % (10.0-50.0); Mean Corpuscular Hemoglobin 30.9 pg (28.0-32.0); Mean Corpuscular Hgb Conc. 33.9 g/dL (32.0-36.0); Mean Corpuscular Volume 91.2 fL (80.0-100.0); Monocytes # (auto) 0.6 uL; Monocytes % (auto) 7.6 % (0.0-12.0); Neutrophils # (auto) 4.5 uL; Neutrophils % (auto) 54.4 % (37.0-80.0); Nucleated Red Blood Cells % 0.1 %; Platelet Count (auto) 147 10^3/uL (140-450); Red Blood Cells 4.78 10^6/uL (4.0-5.20); Red Cell Distribution Width 13.7 % (11.8-14.3); White Blood Cell 8.3 10^3/uL (4.4-10.8)
[2019-06-11 06:22] LABS: Albumin 3.3 g/dL (3.4-5.0); BUN/Creatinine Ratio 27.6; Calcium 8.9 mg/dL (8.5-10.1); Magnesium 2.5 mg/dL (1.6-2.6)
[2019-06-11 06:24] LABS: Bilirubin, Total 0.4 mg/dL (0.2-1.0)
[2019-06-11] MEDS: SUCRALFATE 1 GM/10 ML ORAL SUSP PO SCH ×4 (06:56→22:27)
[2019-06-11] MEDS: METHYLDOPA 250 MG TAB PO SCH ×3 (06:56→22:30)
--- NOTE | 2019-06-11 07:20 | NUR ---
CLOSING NOTE Patient is resting comfortably in bed. Care has been endorse to Day shift RN.
--- NOTE | 2019-06-11 07:30 | NUR ---
Opening Shift Note Assuming care of patient at this time. Patient is awake and alert. Patient denies pain. Bed locked and lowered with side rails up x2. Patient shows no signs or symptoms of distress or shortness of breath. Instructed patient on the plan of care and to call for assistance as needed. Call light within reach. Will continue to round hourly and as needed.
[2019-06-11 08:31] VITALS: BP 110/76
[2019-06-11] MEDS: HYDROcodone-ACET 10/325MG TAB PO PRN ×2 (11:25→20:23)
[2019-06-11] MEDS: POTASSIUM CHL 20 Meq TABLET PO SCH (11:26)
[2019-06-11] MEDS: cefTRIAXone 1GM/50ML D5W 50 ML IV SCH (11:26)
[2019-06-11] MEDS: BACLOFEN 10 MG TAB PO SCH (11:26)
[2019-06-11] MEDS: LOSARTAN POTASSIUM 50 MG TAB PO SCH (11:27)
[2019-06-11] MEDS: ASPirin-EC 81 mg tab PO SCH (11:27)
[2019-06-11] MEDS: DILTIAZEM HCL 120MG ER CAP PO SCH (11:28)
[2019-06-11] MEDS: METOPROLOL TARTRATE 50 MG TAB PO SCH ×2 (11:29→22:26)
[2019-06-11] MEDS: LEVETIRACETAM 500 MG TAB PO SCH ×2 (11:29→22:26)
[2019-06-11] MEDS: CLOPIDOGREL BISULFATE 75 MG TAB PO SCH (11:30)
[2019-06-11] MEDS: PANTOPRAZOLE 40 MG TAB PO SCH ×2 (11:30→22:27)
[2019-06-11] MEDS: HCTZ 25 MG TAB PO SCH (11:34)
[2019-06-11] MEDS: DULoxetine HCL 30 MG CAP PO SCH (11:35)
[2019-06-11] MEDS: DOCUSATE SOD 100 MG CAP PO SCH ×2 (11:35→22:26)
--- NOTE | 2019-06-11 11:41 | NUR ---
Patient's Heart Rate Patient's heart rate has gone into the 130s. Dr. Ramos made aware.
[2019-06-11 13:09] VITALS: BP 120/84
[2019-06-11 13:13] VITALS: BP 115/77
--- NOTE | 2019-06-11 16:00 | NUR ---
Stress Test Patient had the first part of stress test today. Second part to be done tomorrow. Patient aware. Patient is NPO after midnight.
[2019-06-11] MEDS ORDERED: POTASSIUM CHL 20 Meq TABLET PO ONE (16:15)
[2019-06-11] MEDS: LORazepam 0.5 MG TAB PO PRN (16:22)
[2019-06-11 17:15] VITALS: BP 94/70
--- NOTE | 2019-06-11 19:25 | NUR ---
Opening Shift Note Assumed care of patient, awake and alert. No S/S of distress/SOB or pain. Instructed on POC and to call for assist PRN, will continue to monitor for changes Q1hr and PRN.
--- NOTE | 2019-06-11 19:25 | NUR ---
Closing Shift Note Patient resting in bed with eyes closed. No distress noted. Report given. Will endorse care to the spike maker RN.
--- NOTE | 2019-06-11 20:00 | NUR ---
EDUCATED THE PATIENT ON PLAN OF CARE FOR 06/12/19. PT IS TO BE NPO FROM MIDNIGHT FOR PROCEDURE TOMORROW. PATIENT VERBALIZED UNDERSTANDING. CONTINUE TO MONITOR.
[2019-06-11 22:00] VITALS: BP 125/82
[2019-06-11] MEDS: AMITRIPTYLINE HCL 25 MG TAB PO SCH (22:26)
[2019-06-11] MEDS: DOXAZOSIN MESYL 2 MG TAB PO SCH (22:27)
[2019-06-12 05:00] VITALS: BP 100/71
[2019-06-12] MEDS: METHYLDOPA 250 MG TAB PO SCH ×3 (06:00→21:52)
[2019-06-12 06:24] LABS: BUN/Creatinine Ratio 33.3; Calcium 9.1 mg/dL (8.5-10.1); Potassium 3.6 mmol/L (3.5-5.1)
[2019-06-12] MEDS: SUCRALFATE 1 GM/10 ML ORAL SUSP PO SCH ×4 (07:02→21:43)
--- NOTE | 2019-06-12 07:30 | NUR ---
Opening Shift Note Assumed care of patient, awake and alert x4. No S/S of distress or SOB, no pain noted or reported at this time. Respirations are even and unlabored on RA. Updated on POC and instructed to call for assistance as needed, patient verbalized understanding. Bed locked in lowest position, side rails up x2, call light within reach. Will continue to monitor for changes Q1hr and PRN.
--- NOTE | 2019-06-12 07:39 | NUR ---
CLOSING NOTE Patient is resting comfortably in bed. Care has been endorse to Day shift RN.
--- NOTE | 2019-06-12 08:20 | NUR ---
IV removal IV DC'd with clean sterile technique, catheter fully intact. Pressure dressing applied to site. Patient tolerated well. NOTE: [left forearm leaking]
[2019-06-12 08:27] VITALS: BP 101/67
--- NOTE | 2019-06-12 08:35 | NUR ---
IV insertion IV access obtained, via clean sterile technique by inserting 22 gauge catheter at right forearm after 1 attempt. IV secured properly. No trauma to site. Patient tolerated procedure well.
--- NOTE | 2019-06-12 08:40 | NUR ---
Patient taken to Stress lab. No distress upon departure.
[2019-06-12] MEDS ORDERED: ADENOSINE 58 MG in GIVE UN-DILUTED 0 ML IV ONE (09:00)
[2019-06-12] MEDS: cefTRIAXone 1GM/50ML D5W 50 ML IV SCH (09:00)
--- NOTE | 2019-06-12 10:30 | NUR ---
Patient returned from stress lab. No distress noted.
[2019-06-12 12:32] VITALS: BP 110/76
[2019-06-12] MEDS ORDERED: PROMETHAZINE HCL 25 MG/ML 1ML IV ONE (12:45)
[2019-06-12] MEDS: HYDROcodone-ACET 10/325MG TAB PO PRN ×2 (12:51→20:59)
[2019-06-12] MEDS: HCTZ 25 MG TAB PO SCH (12:52)
[2019-06-12] MEDS: PANTOPRAZOLE 40 MG TAB PO SCH ×2 (12:54→21:43)
[2019-06-12] MEDS: METOPROLOL TARTRATE 50 MG TAB PO SCH ×2 (12:54→21:52)
[2019-06-12] MEDS: ASPirin-EC 81 mg tab PO SCH (12:54)
[2019-06-12] MEDS: DULoxetine HCL 30 MG CAP PO SCH (12:54)
[2019-06-12] MEDS: POTASSIUM CHL 20 Meq TABLET PO SCH (12:54)
[2019-06-12] MEDS: BACLOFEN 10 MG TAB PO SCH (12:54)
[2019-06-12] MEDS: LEVETIRACETAM 500 MG TAB PO SCH ×2 (12:55→21:43)
[2019-06-12] MEDS: DILTIAZEM HCL 120MG ER CAP PO SCH (12:55)
[2019-06-12] MEDS: DOCUSATE SOD 100 MG CAP PO SCH ×2 (12:56→21:42)
[2019-06-12] MEDS: LOSARTAN POTASSIUM 50 MG TAB PO SCH (12:56)
[2019-06-12] MEDS: CLOPIDOGREL BISULFATE 75 MG TAB PO SCH (13:00)
--- NOTE | 2019-06-12 14:13 | NUR ---
Patient taken to starch factory laborer. No distress upon departure.
[2019-06-12 14:17] LABS: Basophils # (auto) 0 uL; Basophils % (auto) 0.7 % (0.0-2.0); Eosinophils # (auto) 0.1 uL; Eosinophils % (auto) 2.4 % (0.0-7.0); Hematocrit 40.6 % (36.0-46.0); Hemoglobin 13.6 g/dL (12.2-16.2); Lymphocytes # (auto) 1.8 uL; Lymphocytes % (auto) 28.6 % (10.0-50.0); Mean Corpuscular Hemoglobin 30.7 pg (28.0-32.0); Mean Corpuscular Hgb Conc. 33.4 g/dL (32.0-36.0); Mean Corpuscular Volume 91.8 fL (80.0-100.0); Monocytes # (auto) 0.4 uL; Monocytes % (auto) 6.7 % (0.0-12.0); Neutrophils # (auto) 3.8 uL; Neutrophils % (auto) 61.6 % (37.0-80.0); Nucleated Red Blood Cells % 0.1 %; Platelet Count (auto) 152 10^3/uL (140-450); Red Blood Cells 4.42 10^6/uL (4.0-5.20); Red Cell Distribution Width 13.9 % (11.8-14.3); White Blood Cell 6.2 10^3/uL (4.4-10.8)
[2019-06-12] MEDS ORDERED: LIDOCAINE 2%HCL (LOCAL ANESTH.) INJ 20ML MDV ONE (14:52)
[2019-06-12] MEDS ORDERED: IODIXANOL 320MG/ML 100ML BTL IV ONE (14:52)
[2019-06-12] MEDS ORDERED: HEPARIN SODIUM (PORCINE) 5000 UNITS/ML 1ML VIAL ONE (14:58)
[2019-06-12] MEDS ORDERED: fentaNYL CITRATE 100 MCG/2 ML VL ONE (14:58)
[2019-06-12] MEDS ORDERED: VERAPAMIL 2.5MG/ML INJ 2ML VIAL IV ONE (14:58)
[2019-06-12] MEDS ORDERED: ANGIOMAX 250 MG VIAL IV ONE (14:58)
[2019-06-12] MEDS ORDERED: MIDAZOLAM HCL 1MG/1ML-2 ML VIAL ONE (14:59)
[2019-06-12] MEDS ORDERED: SODIUM CHL 0.9% 0 ML ONE (14:59)
--- NOTE | 2019-06-12 16:45 | NUR ---
Patient back from Truss Assembler Patient resting in bed. Assessed right wrist access point with petroleum laboratory technician RN, no bleeding or swelling noted. Vasc Band removal to begin at 1700 per MD orders and removal instructions will be followed. Vitals stable upon arrival: BP 115/75, HR 71, RR 20, O2 98%, and Temp 98.0F. No S/S of distress or SOB.
[2019-06-12 17:01] VITALS: BP 115/75
[2019-06-12] MEDS: LORazepam 0.5 MG TAB PO PRN (18:17)
--- NOTE | 2019-06-12 18:40 | NUR ---
Vasc Band Removed Vasc Band removed per removal instructions. 2mL of air removed every 10 to 15 minutes beginning at 1700 as ordered. Monitored for signs of circulation, sensation, and motor functions as instructed. Band completely deflated with no signs of bleeding, was carefully removed and placed a dry gauze dressing with Tegaderm. Instructed patient to notify nursing staff for any sign of bleeding, patient verbalized understanding. Educated the patient per removal instructions. See chart for education and removal instructions followed.
--- NOTE | 2019-06-12 19:00 | NUR ---
Patient Rounds Patient resting in bed with eyes closed. No S/S of distress or SOB. Care will be endorsed to conveyor worker RN.
--- NOTE | 2019-06-12 19:40 | NUR ---
Opening Shift Note Assumed care of patient, awake and alert oriented x4. No S/S of distress/SOB noted. Bed is in lowest locked position with bed rails up x2 and call light is within reach of the patient. Instructed on POC and to call for assist PRN.
[2019-06-12] MEDS: ONDANSETRON HCL 4 MG/2 ML VIAL IV PRN (19:55)
[2019-06-12] MEDS: AMITRIPTYLINE HCL 25 MG TAB PO SCH (21:41)
[2019-06-12] MEDS: DOXAZOSIN MESYL 2 MG TAB PO SCH (21:52)
[2019-06-12 22:00] VITALS: BP 102/70
[2019-06-13] MEDS: ZOLPIDEM TARTRATE 5 MG TAB PO PRN (00:50)
[2019-06-13] MEDS: LORazepam 0.5 MG TAB PO PRN ×2 (04:09→20:01)
[2019-06-13 05:00] VITALS: BP 97/70
[2019-06-13] MEDS: METHYLDOPA 250 MG TAB PO SCH ×3 (05:54→22:00)
[2019-06-13] MEDS: SUCRALFATE 1 GM/10 ML ORAL SUSP PO SCH ×4 (06:17→22:34)
--- NOTE | 2019-06-13 07:20 | NUR ---
Opening Shift Note Assumed care of patient, awake and alert. No S/S of distress/SOB or pain. Instructed on POC and to call for assist PRN, will continue to monitor for changes Q1hr and PRN. Bed set in lowest locked position for safety and call light is within reach.
[2019-06-13 08:15] VITALS: BP 128/76
[2019-06-13] MEDS: cefTRIAXone 1GM/50ML D5W 50 ML IV SCH (08:45)
[2019-06-13 09:00] VITALS: BP 128/76
[2019-06-13] MEDS: ASPirin-EC 81 mg tab PO SCH (09:34)
[2019-06-13] MEDS: DILTIAZEM HCL 120MG ER CAP PO SCH (09:34)
[2019-06-13] MEDS: DULoxetine HCL 30 MG CAP PO SCH (09:36)
[2019-06-13] MEDS: PANTOPRAZOLE 40 MG TAB PO SCH ×2 (09:36→22:38)
[2019-06-13] MEDS: CLOPIDOGREL BISULFATE 75 MG TAB PO SCH (09:36)
[2019-06-13] MEDS: LEVETIRACETAM 500 MG TAB PO SCH ×2 (09:36→22:32)
[2019-06-13] MEDS: POTASSIUM CHL 20 Meq TABLET PO SCH (09:36)
[2019-06-13] MEDS: HCTZ 25 MG TAB PO SCH (09:37)
[2019-06-13] MEDS: BACLOFEN 10 MG TAB PO SCH (09:38)
[2019-06-13] MEDS: DOCUSATE SOD 100 MG CAP PO SCH ×2 (09:38→22:33)
[2019-06-13] MEDS: METOPROLOL TARTRATE 50 MG TAB PO SCH ×2 (09:38→22:00)
[2019-06-13] MEDS: HYDROcodone-ACET 10/325MG TAB PO PRN ×2 (09:39→18:45)
[2019-06-13] MEDS: LOSARTAN POTASSIUM 50 MG TAB PO SCH (10:08)
[2019-06-13 12:49] VITALS: BP 123/85
[2019-06-13] MEDS ORDERED: AMI25T PO (13:47)
[2019-06-13] MEDS ORDERED: MET250T PO (13:47)
[2019-06-13] MEDS ORDERED: MET50T PO (13:47)
[2019-06-13] MEDS ORDERED: POTA-220 PO (13:47)
[2019-06-13] MEDS ORDERED: HCTZ25T PO (13:53)
--- NOTE | 2019-06-13 15:02 | NUR ---
Nutrition Follow-up Notes: Wt.: 65.8 kg as of yesterday Pt's s/p LHC yesterday, immediate family members at bedside, denies any discomfort when rounded this morning. 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 Pt's usually has good appetite, eat meals regularly, NKFA and not into any special diets captain/check airman. Pt's requesting Chopped Fine diet for better food tolerance, acknowledged pt's request and coordinate with dietary. Pt's currently on Chopped Fine Cardiac diet with adequate PO intake aeb 80% ave. consumed meals (x5) in last 2 days. Provide verbal and written nutrition educ. re: current therapeutic diet and she verbalized understanding. Est. Needs: 1350 kcal to 1650 kcal (20-25 kcal/kgBW), 53 gms to 66 gms pro (0.8-1.0 gms/kgBW). Will continue to monitor pertinent labs and reassess nutrient need prn Labs: Gluc 10 H, CO2 34 H, BUN 29 H Skin: Ventura scale 20, low risk, pt's skin intact per technical documentation specialist. GI: Pt had 1 BM this morning per technical documentation specialist. PES: Altered nutrition related lab values r/t current/chronic medical condition aeb hyperglycemia, hyperchloremia, elev. ALT, ALP levels Will continue to monitor PO intake, skin status, pertinent labs and weight trend. F/u in 3 to 5 days. Rec.: 1.) Continue close supervision with meals. 2.) Refer to RD for further nutrition educ. and weight monitoring upon discharge. 3.) Continue current plan of care.
[2019-06-13] MEDS: HYOSCYAMINE SULF 0.125 MG ODT TAB PO PRN (16:46)
[2019-06-13] MEDS: ONDANSETRON HCL 4 MG/2 ML VIAL IV PRN ×2 (16:47→17:55)
[2019-06-13 17:27] VITALS: BP 98/65
[2019-06-13 22:00] VITALS: BP 112/71
[2019-06-13] MEDS: AMITRIPTYLINE HCL 25 MG TAB PO SCH (22:32)
[2019-06-14] MEDS: ZOLPIDEM TARTRATE 5 MG TAB PO PRN (00:34)
[2019-06-14 05:00] VITALS: BP 125/81
[2019-06-14] MEDS: METHYLDOPA 250 MG TAB PO SCH ×2 (05:55→14:00)
[2019-06-14] MEDS: SUCRALFATE 1 GM/10 ML ORAL SUSP PO SCH ×2 (06:32→11:43)
[2019-06-14] MEDS: LORazepam 0.5 MG TAB PO PRN (06:32)
--- NOTE | 2019-06-14 06:50 | NUR ---
Closing note: Patient is resting in bed with breaths even and unlabored. No s/s of distress SOB noted. Bed is in lowest locked position with bed rails up x2 and call light is within reach of the patient. Will endorse care to day shift nurse.
--- NOTE | 2019-06-14 07:01 | NUR ---
Opening Shift Note Assumed care of patient, awake and alert. No S/S of distress/SOB. Instructed on POC and to call for assist PRN, will continue to monitor for changes Q1hr and PRN. Bed set in lowest locked position with side rails up x2.
[2019-06-14 08:01] VITALS: BP 139/66
[2019-06-14 08:26] VITALS: BP 127/80
[2019-06-14 09:17] VITALS: BP 139/66
[2019-06-14] MEDS: LOSARTAN POTASSIUM 50 MG TAB PO SCH (10:26)
[2019-06-14] MEDS: ASPirin-EC 81 mg tab PO SCH (10:26)
[2019-06-14] MEDS: BACLOFEN 10 MG TAB PO SCH (10:27)
[2019-06-14] MEDS: HCTZ 25 MG TAB PO SCH (10:27)
[2019-06-14] MEDS: DULoxetine HCL 30 MG CAP PO SCH (10:27)
[2019-06-14] MEDS: CLOPIDOGREL BISULFATE 75 MG TAB PO SCH (10:27)
[2019-06-14] MEDS: DOCUSATE SOD 100 MG CAP PO SCH (10:27)
[2019-06-14] MEDS: PANTOPRAZOLE 40 MG TAB PO SCH (10:28)
[2019-06-14] MEDS: POTASSIUM CHL 20 Meq TABLET PO SCH (10:28)
[2019-06-14] MEDS: METOPROLOL TARTRATE 50 MG TAB PO SCH (10:28)
[2019-06-14] MEDS: LEVETIRACETAM 500 MG TAB PO SCH (10:28)
[2019-06-14] MEDS: HYDROcodone-ACET 10/325MG TAB PO PRN (11:44)
--- NOTE | 2019-06-14 13:45 | NUR ---
Discharged Discharge instructions given as ordered. Encourage to follow up with PMD,neuro and cardiology as instructed. All questions and concerns addressed. Patient verbalized understanding. Medication reconciliation form completed and copy given to patient. Patient's prescriptions available at requested pharmacy. Patient educated on new prescriptions. IV removed with catheter intact, pressure dressing applied. Telemetry unit returned to ICU. Patient taken to vehicle via wheelchair with all personal belongings, accompanied by staff and family member. No distress noted at time of departure.
== END 2019-06-14 13:45 | disposition home or self-care (01) | DRG 192 ==
LOC: ER 14:35 → TELE 14:36 → TELE-WESTW 21:18
PROVIDERS: ADMIT Nurse Practitioner Acute Care; ATTEND Internal Medicine
PROC: 4A023N7 Measurement of Cardiac Sampling and Pressure, Left Heart, Percutaneous Approach (ICD-10-PCS; principal; 2019-06-12)
PROC: B211YZZ Fluoroscopy of Multiple Coronary Arteries using Other Contrast (ICD-10-PCS; 2019-06-12)
PROC: B215YZZ Fluoroscopy of Left Heart using Other Contrast (ICD-10-PCS; 2019-06-12)
DX: I16.1 Hypertensive emergency (principal); I67.6 Nonpyogenic thrombosis of intracranial venous system; I24.9 Acute ischemic heart disease, unspecified; I25.10 Atherosclerotic heart disease of native coronary artery without angina pectoris; G43.909 Migraine, unspecified, not intractable, without status migrainosus; K21.9 Gastro-esophageal reflux disease without esophagitis; G89.29 Other chronic pain; F32.9 Major depressive disorder, single episode, unspecified; E87.6 Hypokalemia; F17.200 Nicotine dependence, unspecified, uncomplicated; G40.909 Epilepsy, unspecified, not intractable, without status epilepticus; I10 Essential (primary) hypertension; E78.5 Hyperlipidemia, unspecified; R00.0 Tachycardia, unspecified; N39.0 Urinary tract infection, site not specified; I25.2 Old myocardial infarction; Z95.5 Presence of coronary angioplasty implant and graft; Z88.1 Allergy status to other antibiotic agents; Z79.02 Long term (current) use of antithrombotics/antiplatelets; Z79.899 Other long term (current) drug therapy; Z80.0 Family history of malignant neoplasm of digestive organs; Z82.3 Family history of stroke; Z82.49 Family history of ischemic heart disease and other diseases of the circulatory system; Z79.82 Long term (current) use of aspirin; Z86.711 Personal history of pulmonary embolism
CPT/HCPCS: 36415; 70450; 70496; 70551; 76705; 78452; 80048; 80053; 81001; 83036; 83735; 84484; 85025; 85610; 85730; 86704; 86706; 86708; 86803; 86850; 86900; 86901; 87086; 87340; 93017; 93458; 93975; 94761; 95819; 99152; 99291; G0378; J0153; J0696; J2250; J2405; Q9967

== ENCOUNTER 2019-07-19 12:15 | Emergency (ER) | payer MEDICAID ==
[~2019-07-19] VITALS: Ht 154.9 cm; Wt 67.1 kg
[~2019-07-19 12:15] MED LIST changes: -ACE650RS PO; +AMI25T PO; -ASPI-404 PO; -BISA-4 PO; -BISA10SU52 PO; -CLON0.1T PO; -CYAN100L PO; +DULO20CA PO; -ENAL2.5T PO; -FURO40TA4 PO; +HCTZ25T PO; -HYDR25TA4 PO; -HYDR5CRE3 PR; -LEVE500T22 PO; -LISI-646 PO; +LOSA-39 PO; -MELA3TAB27 PO; +MET250T PO; -MET25T PO; +MET50T PO; -PERCOT PO; +POTA-220 PO; -POTA10TA51 PO; -PRAV20TA3 PO; -PREN-96 PO; -PROP80CA40 PO; -TRAZ100T2 PO; -[UNRECOGNIZED DRUG - CODE] PO
[2019-07-19 12:26] VITALS: BP 145/104
[2019-07-19 13:16] LABS: Urine Bacteria NONE SEEN /hpf (None Seen); Urine Blood Negative /uL (Negative); Urine Specific Gravity 1.004 (1.001-1.035); Urine WBC <1 /hpf (0 - 5)
== END 2019-07-19 14:31 | disposition home or self-care (01) ==
LOC: ER 12:15
DX: N39.0 Urinary tract infection, site not specified (principal); K21.9 Gastro-esophageal reflux disease without esophagitis; E78.5 Hyperlipidemia, unspecified; I10 Essential (primary) hypertension; Z88.1 Allergy status to other antibiotic agents; Z98.61 Coronary angioplasty status; Z79.82 Long term (current) use of aspirin; Z79.899 Other long term (current) drug therapy
CPT/HCPCS: 81001

== ENCOUNTER 2022-06-19 10:55 | Inpatient (IN) | payer MEDICAID ==
[~2022-06-19] VITALS: Ht 154.9 cm; Wt 66.7 kg
[~2022-06-19 10:55] MED LIST changes: -AMI25T PO; -AMLO5TAB15 PO; -ASP81EC PO; +ASPI-394 PO; +ATOR20TA50 PO; -BACL10TA PO; +CLON0.1T PO; +DOCU-94 PO; -DOCU1CAP31 PO; +DULO-141 PO; -DULO20CA PO; -ESOM40CA39 PO; -HCTZ25T PO; -HYDR-4296 PO; -HYDR-531 PO; +HYDR25TA5 PO; +HYDR25TA87 PO; -LOSA-39 PO; +LOSA-69 PO; -MET250T PO; -MET50T PO; +METH250T8 PO; +METO-159 PO; -POTA1TAB4 PO; -SUCR1TAB PO; -ZOLP10TA PO
[2022-06-19 11:14] LABS: Basophils # (auto) 0 10 ^3/uL (0-0.2); Basophils % (auto) 0.5 % (0.0-2.0); Eosinophils # (auto) 0.2 10 ^3/uL (0-0.8); Eosinophils % (auto) 2.6 % (0.0-7.0); Hematocrit 42.2 % (36.0-46.0); Hemoglobin 13.8 g/dL (12.2-16.2); Lymphocytes # (auto) 3.1 10 ^3/uL (0.4-5.4); Lymphocytes % (auto) 43.3 % (10.0-50.0); Mean Corpuscular Hemoglobin 29.8 pg (28.0-32.0); Mean Corpuscular Hgb Conc. 32.7 g/dL (32.0-36.0); Mean Corpuscular Volume 91.2 fL (80.0-100.0); Monocytes # (auto) 0.5 10 ^3/uL (0-1.3); Monocytes % (auto) 6.9 % (0.0-12.0); Neutrophils # (auto) 3.4 10 ^3/uL (1.6-8.6); Neutrophils % (auto) 46.7 % (37.0-80.0); Red Blood Cells 4.63 10^6/uL (4.0-5.20); Red Cell Distribution Width 14.8 % (11.8-14.3); White Blood Cell 7.2 10^3/uL (4.4-10.8)
[2022-06-19] MEDS ORDERED: ASPirin 325 MG TAB PO ONE (11:15)
[2022-06-19 11:34] LABS: BUN/Creatinine Ratio 16.3; Calcium 9.6 mg/dL (8.5-10.1); Potassium 3.4 mmol/L (3.5-5.1)
[2022-06-19 11:37] LABS: Bilirubin, Total 0.5 mg/dL (0.2-1.0); Total Protein 7.6 g/dL (6.4-8.2)
[2022-06-19] MEDS ORDERED: ACETAMINOPHEN 325 MG TAB PO PRN (15:00)
[2022-06-19] MEDS ORDERED: DOCUSATE SOD 100 MG CAP PO PRN (15:00)
[2022-06-19] MEDS ORDERED: NITROGLYCERIN 0.4 MG SL TAB SL PRN (15:00)
[2022-06-20] MEDS: ATORVASTATIN 20 MG TAB PO SCH ×2 (03:08→21:47)
[2022-06-20] MEDS: HCTZ 25 MG TAB PO SCH ×3 (03:08→21:47)
[2022-06-20] MEDS: hydrALAZINE HCL 25 MG TAB PO SCH ×2 (03:08→06:33)
[2022-06-20] MEDS: METOPROLOL TARTRATE 50 MG TAB PO SCH ×3 (03:14→21:48)
[2022-06-20] MEDS: MORPHINE SULFATE INJ 2 MG/ml SYRG IV PRN ×3 (03:15→09:52)
[2022-06-20] MEDS: ONDANSETRON HCL 4 MG/2 ML VIAL IV PRN ×3 (03:16→09:51)
[2022-06-20 03:51] LABS: Urine Bacteria FEW /hpf (None Seen); Urine Blood Negative /uL (Negative); Urine Specific Gravity 1.006 (1.001-1.035); Urine WBC <1 /hpf (0 - 5)
[2022-06-20] MEDS: METHYLDOPA 250 MG TAB PO SCH ×3 (03:55→14:00)
[2022-06-20 06:59] LABS: Basophils # (auto) 0.1 10 ^3/uL (0-0.2); Eosinophils # (auto) 0.2 10 ^3/uL (0-0.8); Eosinophils % (auto) 2.9 % (0.0-7.0); Hematocrit 38.6 % (36.0-46.0); Hemoglobin 12.7 g/dL (12.2-16.2); Lymphocytes % (auto) 32.2 % (10.0-50.0); Mean Corpuscular Hemoglobin 30.2 pg (28.0-32.0); Mean Corpuscular Volume 91.4 fL (80.0-100.0); Monocytes # (auto) 0.5 10 ^3/uL (0-1.3); Monocytes % (auto) 8.1 % (0.0-12.0); Neutrophils # (auto) 3.4 10 ^3/uL (1.6-8.6); Neutrophils % (auto) 55.8 % (37.0-80.0); Nucleated Red Blood Cells % 0.2 %; Red Blood Cells 4.22 10^6/uL (4.0-5.20); Red Cell Distribution Width 14.6 % (11.8-14.3); White Blood Cell 6.1 10^3/uL (4.4-10.8)
[2022-06-20 07:21] LABS: Albumin 3.6 g/dL (3.4-5.0); BUN/Creatinine Ratio 12.2; Bilirubin, Total 0.6 mg/dL (0.2-1.0); Calcium 9.4 mg/dL (8.5-10.1); Potassium 3.5 mmol/L (3.5-5.1); Total Protein 6.7 g/dL (6.4-8.2)
[2022-06-20] MEDS: PANTOPRAZOLE 40 MG TAB PO SCH (09:47)
[2022-06-20] MEDS: POTASSIUM CHL 20 Meq TABLET PO SCH (09:48)
[2022-06-20] MEDS: LOSARTAN POTASSIUM 50 MG TAB PO SCH (09:49)
[2022-06-20] MEDS: DULoxetine HCL 30 MG CAP PO SCH (09:49)
[2022-06-20] MEDS: CLOPIDOGREL BISULFATE 75 MG TAB PO SCH (09:50)
[2022-06-20] MEDS: ASPirin-EC 81 mg tab PO SCH (09:50)
[2022-06-20] MEDS: levETIRAcetam 500 MG TAB PO SCH (09:50)
[2022-06-20] MEDS: ENOXAPARIN SOD 40 MG/0.4 ML SYRINGE SC SCH (09:51)
[2022-06-20] MEDS: HYDROcodone-ACET 5/325MG TAB PO PRN ×3 (11:35→21:49)
[2022-06-20 12:40] LABS: Alcohol, Urine < 3.0 mg/dL (0-10); Amphetamine Screen, Urine NEGATIVE (NEGATIVE); Barbiturate Scree,Urine NEGATIVE (NEGATIVE); Benzodiazephine Screen, Urine NEGATIVE (NEGATIVE); Cannabinoid Screen, Urine NEGATIVE (NEGATIVE); Cocaine Screen, Urine NEGATIVE (NEGATIVE); Opiate Scree,Urine NEGATIVE (NEGATIVE); Phencyclidine Screen, Urine NEGATIVE (NEGATIVE)
[2022-06-20] MEDS: NIFEdipine ER 30 MG TAB PO SCH (18:56)
[2022-06-20 21:10] VITALS: BP 177/106
[2022-06-20] MEDS ORDERED: ZOLP10TA PO (21:35)
[2022-06-20] MEDS ORDERED: DEXL30CA4 PO (21:35)
[2022-06-20] MEDS ORDERED: FAMO20TA10 PO (21:35)
[2022-06-20] MEDS ORDERED: EREN70IN SC (21:35)
[2022-06-20] MEDS ORDERED: ATOR10TA52 PO (21:35)
[2022-06-20] MEDS ORDERED: TRAZ100T3 PO (21:35)
[2022-06-20] MEDS ORDERED: LUBI24CA6 PO (21:35)
[2022-06-20] MEDS ORDERED: TOPI100T68 PO (21:35)
[2022-06-20] MEDS ORDERED: GABA300C10 PO (21:35)
[2022-06-20] MEDS ORDERED: SUCR1TAB PO (21:35)
[2022-06-20] MEDS ORDERED: HYDR-4298 PO (21:35)
[2022-06-20] MEDS ORDERED: NIFE90TA49 PO (21:35)
[2022-06-20] MEDS ORDERED: DICY10CA PO (21:35)
[2022-06-20] MEDS: METHYLDOPA 250MG TABLET PO SCH (21:47)
[2022-06-21] VITALS (9 sets, daily range): BP systolic 0–175; BP diastolic 88–113
[2022-06-21] MEDS: METHYLDOPA 250MG TABLET PO SCH ×3 (06:00→21:39)
[2022-06-21] MEDS ORDERED: hydrALAZINE HCL 20 MG/ML VL IV PRN (06:30)
[2022-06-21] MEDS ORDERED: ADENOSINE 57 MG in GIVE UN-DILUTED 0 ML IV STA (08:18)
[2022-06-21] MEDS: PANTOPRAZOLE 40 MG TAB PO SCH (10:38)
[2022-06-21] MEDS: CLOPIDOGREL BISULFATE 75 MG TAB PO SCH (10:38)
[2022-06-21] MEDS: ASPirin-EC 81 mg tab PO SCH (10:38)
[2022-06-21] MEDS: DULoxetine HCL 30 MG CAP PO SCH (10:38)
[2022-06-21] MEDS: ENOXAPARIN SOD 40 MG/0.4 ML SYRINGE SC SCH (10:38)
[2022-06-21] MEDS: levETIRAcetam 500 MG TAB PO SCH (10:38)
[2022-06-21] MEDS: POTASSIUM CHL 20 Meq TABLET PO SCH (12:18)
[2022-06-21] MEDS: HCTZ 25 MG TAB PO SCH (12:19)
[2022-06-21] MEDS: LOSARTAN POTASSIUM 50 MG TAB PO SCH (12:19)
[2022-06-21] MEDS: NIFEdipine ER 30 MG TAB PO SCH (12:20)
[2022-06-21] MEDS: METOPROLOL TARTRATE 50 MG TAB PO SCH ×2 (12:21→21:40)
[2022-06-21] MEDS ORDERED: PATIENTS OWN MEDICATION (Hydralazine Hcl 1 TAB) PO SCH (14:00)
[2022-06-21] MEDS: DICYCLOMINE HCL 10 MG CAP PO SCH ×2 (14:07→21:40)
[2022-06-21] MEDS: hydrALAZINE HCL 25 MG TAB PO SCH ×2 (14:07→21:40)
[2022-06-21] MEDS: SUCRALFATE 1 GM TAB PO SCH (21:39)
[2022-06-21] MEDS: traZODone HCL 50 MG TAB PO SCH (21:39)
[2022-06-21] MEDS: GABAPENTIN 300 MG CAP PO SCH (21:40)
[2022-06-21] MEDS: ATORVASTATIN 20 MG TAB PO SCH (21:41)
[2022-06-21] MEDS: TOPIRAMATE 100 MG TAB PO SCH (21:43)
[2022-06-22] VITALS (12 sets, daily range): BP systolic 0–124; BP diastolic 58–84
[2022-06-22] MEDS: hydrALAZINE HCL 25 MG TAB PO SCH ×3 (05:52→21:17)
[2022-06-22] MEDS: DICYCLOMINE HCL 10 MG CAP PO SCH ×3 (05:52→21:20)
[2022-06-22] MEDS: METHYLDOPA 250MG TABLET PO SCH ×3 (05:52→21:21)
[2022-06-22 05:58] LABS: INR 1.03 (0.9-1.15); Partial Thromboplastin Time 26.5 sec (24.6-33.4)
[2022-06-22 06:02] LABS: Calcium 9.6 mg/dL (8.5-10.1); Potassium 3.7 mmol/L (3.5-5.1)
[2022-06-22 06:03] LABS: BUN/Creatinine Ratio 15.2
[2022-06-22 06:25] LABS: Basophils # (auto) 0 10 ^3/uL (0-0.2); Basophils % (auto) 0.5 % (0.0-2.0); Eosinophils # (auto) 0.1 10 ^3/uL (0-0.8); Eosinophils % (auto) 0.9 % (0.0-7.0); Hematocrit 42.2 % (36.0-46.0); Hemoglobin 13.8 g/dL (12.2-16.2); Mean Corpuscular Hemoglobin 30.3 pg (28.0-32.0); Mean Corpuscular Hgb Conc. 32.8 g/dL (32.0-36.0); Mean Corpuscular Volume 92.5 fL (80.0-100.0); Monocytes # (auto) 0.5 10 ^3/uL (0-1.3); Neutrophils # (auto) 3.4 10 ^3/uL (1.6-8.6); Neutrophils % (auto) 48.6 % (37.0-80.0); Nucleated Red Blood Cells % 0.1 %; Red Blood Cells 4.57 10^6/uL (4.0-5.20); Red Cell Distribution Width 14.7 % (11.8-14.3)
[2022-06-22] MEDS ORDERED: DEXLANSOPRAZOLE 30 MG PO SCH (10:00)
[2022-06-22] MEDS ORDERED: PATIENTS OWN MEDICATION (Nifedipine (Nifedipine Er) 1 TAB) PO SCH (10:00)
[2022-06-22] MEDS: NIFEdipine ER 30 MG TAB PO SCH (10:59)
[2022-06-22] MEDS: METOPROLOL TARTRATE 50 MG TAB PO SCH ×2 (10:59→21:18)
[2022-06-22] MEDS: levETIRAcetam 500 MG TAB PO SCH (11:00)
[2022-06-22] MEDS: DULoxetine HCL 30 MG CAP PO SCH (11:00)
[2022-06-22] MEDS: POTASSIUM CHL 20 Meq TABLET PO SCH (11:02)
[2022-06-22] MEDS: ASPirin-EC 81 mg tab PO SCH (11:02)
[2022-06-22] MEDS: SUCRALFATE 1 GM TAB PO SCH ×2 (11:02→21:21)
[2022-06-22] MEDS: PANTOPRAZOLE 40 MG TAB PO SCH (11:02)
[2022-06-22] MEDS: CLOPIDOGREL BISULFATE 75 MG TAB PO SCH (11:02)
[2022-06-22] MEDS: GABAPENTIN 300 MG CAP PO SCH ×2 (11:03→21:18)
[2022-06-22] MEDS: cloNIDine HCL 0.1 MG TAB PO SCH (11:04)
[2022-06-22] MEDS: TOPIRAMATE 100 MG TAB PO SCH ×2 (11:04→21:19)
[2022-06-22] MEDS: LOSARTAN POTASSIUM 50 MG TAB PO SCH (11:05)
[2022-06-22] MEDS ORDERED: ANGIOMAX 250 MG VIAL IV ONE (14:29)
[2022-06-22] MEDS ORDERED: VERAPAMIL 2.5MG/ML INJ 2ML VIAL IV ONE (14:30)
[2022-06-22] MEDS ORDERED: MIDAZOLAM HCL 2MG/2ML 2ml VIAL (1mg/ml) ONE (14:30)
[2022-06-22] MEDS ORDERED: HEPARIN SODIUM (PORCINE) 5000 UNITS/ML 1ML VIAL ONE (14:30)
[2022-06-22] MEDS ORDERED: fentaNYL CITRATE 100 MCG/2 ML VL ONE (14:30)
[2022-06-22] MEDS ORDERED: SODIUM CHL 0.9% 0 ML ONE (14:31)
[2022-06-22] MEDS ORDERED: LIDOCAINE 2%HCL (LOCAL ANESTH.) INJ 10ml MDV ONE (14:31)
[2022-06-22] MEDS ORDERED: IOHEXOL 350 MG/ML 100ML IJ ONE (14:41)
[2022-06-22] MEDS: ATORVASTATIN 20 MG TAB PO SCH (21:20)
[2022-06-22] MEDS: traZODone HCL 50 MG TAB PO SCH (21:20)
[2022-06-23 05:00] VITALS: BP_SYST 89; BP_SYST 93; BP_DIAS 57; BP_DIAS 58
[2022-06-23] MEDS: METHYLDOPA 250MG TABLET PO SCH ×2 (06:00→14:00)
[2022-06-23] MEDS: hydrALAZINE HCL 25 MG TAB PO SCH ×2 (06:00→16:05)
[2022-06-23] MEDS: DICYCLOMINE HCL 10 MG CAP PO SCH ×2 (06:40→16:02)
[2022-06-23 08:00] VITALS: BP 120/74
[2022-06-23 09:00] VITALS: BP 105/62
[2022-06-23] MEDS: DULoxetine HCL 30 MG CAP PO SCH (09:34)
[2022-06-23] MEDS: ASPirin-EC 81 mg tab PO SCH (09:34)
[2022-06-23] MEDS: MORPHINE SULFATE INJ 2 MG/ml SYRG IV PRN (09:34)
[2022-06-23] MEDS: levETIRAcetam 500 MG TAB PO SCH (09:35)
[2022-06-23] MEDS: POTASSIUM CHL 20 Meq TABLET PO SCH (09:36)
[2022-06-23] MEDS: GABAPENTIN 300 MG CAP PO SCH (09:37)
[2022-06-23] MEDS: SUCRALFATE 1 GM TAB PO SCH (09:37)
[2022-06-23] MEDS: PANTOPRAZOLE 40 MG TAB PO SCH (09:37)
[2022-06-23] MEDS: TOPIRAMATE 100 MG TAB PO SCH (09:37)
[2022-06-23] MEDS: CLOPIDOGREL BISULFATE 75 MG TAB PO SCH (09:37)
[2022-06-23] MEDS ORDERED: ENOXAPARIN SOD 40 MG/0.4 ML SYRINGE SC SCH (10:00)
[2022-06-23] MEDS: METOPROLOL TARTRATE 50 MG TAB PO SCH (10:00)
[2022-06-23] MEDS: cloNIDine HCL 0.1 MG TAB PO SCH (10:00)
[2022-06-23] MEDS: NIFEdipine ER 30 MG TAB PO SCH (10:00)
[2022-06-23] MEDS: LOSARTAN POTASSIUM 50 MG TAB PO SCH (10:00)
[2022-06-23 10:25] LABS: BUN/Creatinine Ratio 21.6; Calcium 9.1 mg/dL (8.5-10.1); Potassium 3.6 mmol/L (3.5-5.1)
[2022-06-23] MEDS: HYDROcodone-ACET 5/325MG TAB PO PRN ×2 (11:13→16:07)
[2022-06-23 13:00] VITALS: BP 115/84
[2022-06-23 13:25] VITALS: BP 105/72
[2022-06-23 16:45] VITALS: BP 117/71
[2022-06-23] MEDS ORDERED: NIFE90TA49 PO (17:53)
[2022-06-23] MEDS ORDERED: FAMO20TA10 GT (17:53)
[2022-06-23] MEDS ORDERED: HYDR-4902 PO (17:53)
== END 2022-06-23 17:45 | disposition home health service (06) | DRG 191 ==
LOC: ER 10:55 → TELE 15:00 → TELE-EAST 06-20 20:44
PROVIDERS: ADMIT Nurse Practitioner; ATTEND Nurse Practitioner
PROC: 4A023N7 Measurement of Cardiac Sampling and Pressure, Left Heart, Percutaneous Approach (ICD-10-PCS; principal; 2022-06-22)
PROC: B2111ZZ Fluoroscopy of Multiple Coronary Arteries using Low Osmolar Contrast (ICD-10-PCS; 2022-06-22)
PROC: B2151ZZ Fluoroscopy of Left Heart using Low Osmolar Contrast (ICD-10-PCS; 2022-06-22)
DX: I24.9 Acute ischemic heart disease, unspecified (principal); I11.0 Hypertensive heart disease with heart failure; I50.32 Chronic diastolic (congestive) heart failure; E78.5 Hyperlipidemia, unspecified; E87.6 Hypokalemia; G40.909 Epilepsy, unspecified, not intractable, without status epilepticus; G43.909 Migraine, unspecified, not intractable, without status migrainosus; I25.10 Atherosclerotic heart disease of native coronary artery without angina pectoris; Y83.1 Surgical operation with implant of artificial internal device as the cause of abnormal reaction of the patient, or of later complication, without mention of misadventure at the time of the procedure; Z20.822 Contact with and (suspected) exposure to COVID-19; Z82.49 Family history of ischemic heart disease and other diseases of the circulatory system; Z82.3 Family history of stroke; Z80.0 Family history of malignant neoplasm of digestive organs; Z86.711 Personal history of pulmonary embolism; Z80.42 Family history of malignant neoplasm of prostate; Z86.73 Personal history of transient ischemic attack (TIA), and cerebral infarction without residual deficits; Z98.61 Coronary angioplasty status; Y92.89 Other specified places as the place of occurrence of the external cause; Z88.1 Allergy status to other antibiotic agents; Z88.8 Allergy status to other drugs, medicaments and biological substances
CPT/HCPCS: 36415; 71045; 78452; 80048; 80053; 80307; 81001; 84484; 85025; 85610; 85730; 87426; 93005; 93017; 93306; 93458; 99152; G0378; J0153; J2001; J2250; J2405

== ENCOUNTER 2022-06-25 15:34 | Emergency (ER) | payer MEDICAID ==
[~2022-06-25] VITALS: Ht 154.9 cm; Wt 68.0 kg
[~2022-06-25 15:34] MED LIST changes: +DEXL30CA4 PO; +DICY10CA PO; +EREN70IN SC; +FAMO20TA10 GT; +FAMO20TA10 PO; +GABA300C10 PO; +HYDR-4298 PO; +HYDR-4902 PO; -HYDR25TA87 PO; -LOSA-69 PO; +LUBI24CA6 PO; -METO-159 PO; +NIFE90TA49 PO; +SUCR1TAB PO; +TOPI100T68 PO; +TRAZ100T3 PO; +ZOLP10TA PO
[2022-06-25 17:08] VITALS: BP 136/94
[2022-06-25] MEDS ORDERED: POTA-167 PO (17:18)
[2022-06-25] MEDS ORDERED: MET50T PO (17:18)
== END 2022-06-25 17:23 | disposition home or self-care (01) ==
LOC: ER 15:34
DX: I10 Essential (primary) hypertension (principal); I25.2 Old myocardial infarction; I25.10 Atherosclerotic heart disease of native coronary artery without angina pectoris; K21.9 Gastro-esophageal reflux disease without esophagitis; E78.5 Hyperlipidemia, unspecified; Z90.89 Acquired absence of other organs; Z79.899 Other long term (current) drug therapy; Z76.0 Encounter for issue of repeat prescription; Z79.82 Long term (current) use of aspirin; Z79.01 Long term (current) use of anticoagulants; Z88.1 Allergy status to other antibiotic agents

== ENCOUNTER → 2022-09-08 | Outpatient (CLI) | payer MEDICAID ==
[~2022-09-08] MED LIST changes: +MET50T PO; +POTA-167 PO
[2022-09-08 09:41] LABS: Basophils # (auto) 0.1 10 ^3/uL (0-0.2); Basophils % (auto) 1.1 % (0.0-2.0); Eosinophils # (auto) 0.2 10 ^3/uL (0-0.8); Eosinophils % (auto) 2.7 % (0.0-7.0); Hematocrit 42.5 % (36.0-46.0); Hemoglobin 13.7 g/dL (12.2-16.2); Lymphocytes # (auto) 2.1 10 ^3/uL (0.4-5.4); Lymphocytes % (auto) 34.8 % (10.0-50.0); Mean Corpuscular Hgb Conc. 32.2 g/dL (32.0-36.0); Mean Corpuscular Volume 90.1 fL (80.0-100.0); Monocytes # (auto) 0.4 10 ^3/uL (0-1.3); Monocytes % (auto) 6.1 % (0.0-12.0); Neutrophils # (auto) 3.4 10 ^3/uL (1.6-8.6); Neutrophils % (auto) 55.3 % (37.0-80.0); Nucleated Red Blood Cells % 0.1 %; Red Blood Cells 4.72 10^6/uL (4.0-5.20); Red Cell Distribution Width 14.9 % (11.8-14.3); White Blood Cell 6.1 10^3/uL (4.4-10.8)
[2022-09-08 10:05] LABS: Urine Bacteria FEW /hpf (None Seen); Urine Blood Negative /uL (Negative); Urine Mucus FEW (None Seen); Urine Specific Gravity 1.022 (1.001-1.035); Urine WBC 16 /hpf (0 - 5)
[2022-09-08 10:07] LABS: Albumin 3.8 g/dL (3.4-5.0); Calcium 9.3 mg/dL (8.5-10.1); Potassium 3.1 mmol/L (3.5-5.1)
[2022-09-08 10:15] LABS: BUN/Creatinine Ratio 17.4; Bilirubin, Total 0.4 mg/dL (0.2-1.0); CRP High Sensitivity 0.06 mg/dL (< 0.3); Total Protein 7.6 g/dL (6.4-8.2)
[2022-09-08 10:21] LABS: Free T4 (Free Thyroxine) 1.01 ng/dL (0.89-1.76)
== END | disposition home or self-care (01) ==
LOC: LAB 09:13
PROVIDERS: ATTEND Internal Medicine
DX: I10 Essential (primary) hypertension (principal); R73.9 Hyperglycemia, unspecified
CPT/HCPCS: 36415; 80053; 80061; 81001; 82043; 82306; 82607; 83036; 84439; 84443; 85025; 86038; 86141

== ENCOUNTER → 2022-09-14 | Outpatient (CLI) | payer MEDICAID | END | disposition home or self-care (01) | LOC: LAB 14:09 | PROVIDERS: ATTEND Internal Medicine | DX: I10 Essential (primary) hypertension (principal); R73.9 Hyperglycemia, unspecified | CPT/HCPCS: 82274 ==

== ENCOUNTER → 2022-09-14 | Outpatient (CLI) | payer MEDICAID ==
[2022-09-14 15:41] LABS: BUN/Creatinine Ratio 22.4; Calcium 9.6 mg/dL (8.5-10.1); Potassium 3.3 mmol/L (3.5-5.1)
== END | disposition home or self-care (01) ==
LOC: LAB 15:02
PROVIDERS: ATTEND Internal Medicine
DX: I10 Essential (primary) hypertension (principal)
CPT/HCPCS: 36415; 80048

== ENCOUNTER → 2023-08-16 | Outpatient (CLI) | payer MEDICAID ==
[~2023-08-16] MED LIST changes: +GABA-1250 PO; -GABA300C10 PO; +METH250T28 PO; -METH250T8 PO; -NIFE90TA49 PO; +NIFE90TA75 PO; -POTA-167 PO; +POTA-211 PO; +TRAZ-228 PO; -TRAZ100T3 PO
[2023-08-16 08:36] LABS: Basophils # (auto) 0.1 10 ^3/uL (0-0.2); Basophils % (auto) 0.8 % (0.0-2.0); Eosinophils # (auto) 0.1 10 ^3/uL (0-0.8); Eosinophils % (auto) 2.1 % (0.0-7.0); Hematocrit 39.9 % (36.0-46.0); Hemoglobin 13.3 g/dL (12.2-16.2); Lymphocytes # (auto) 2.5 10 ^3/uL (0.4-5.4); Lymphocytes % (auto) 39.9 % (10.0-50.0); Mean Corpuscular Hemoglobin 30.4 pg (28.0-32.0); Mean Corpuscular Hgb Conc. 33.2 g/dL (32.0-36.0); Mean Corpuscular Volume 91.5 fL (80.0-100.0); Monocytes # (auto) 0.4 10 ^3/uL (0-1.3); Monocytes % (auto) 6.2 % (0.0-12.0); Neutrophils # (auto) 3.2 10 ^3/uL (1.6-8.6); Nucleated Red Blood Cells % 0.1 %; Red Blood Cells 4.36 10^6/uL (4.0-5.20); Red Cell Distribution Width 14.5 % (11.8-14.3); White Blood Cell 6.2 10^3/uL (4.4-10.8)
[2023-08-16 09:06] LABS: Alanine Aminotransferase 11 U/L (7-40); Albumin 4.3 g/dL (3.2-4.8); Alkaline Phosphatase 78 U/L (46-116); Anion Gap 7 (5-15); Aspartate Aminotransferase 15 U/L (13-40); BUN/Creatinine Ratio 9.1 (10.0-20.0); Blood Urea Nitrogen 10 mg/dL (9-23); Calcium 9.9 mg/dL (8.5-10.1); Carbon Dioxide 28 mmol/L (20-30); Chloride 109 mmol/L (98-107); Glucose 95 mg/dL (74-106); LDL Cholesterol 107 mg/dL (< 100); Potassium 2.7 mmol/L (3.5-5.1); Sodium 144 mmol/L (136-145); Triglycerides 111 mg/dL (< 150)
[2023-08-16 09:07] LABS: Bilirubin, Total 0.5 mg/dL (0.2-1.0); Cholesterol 176 mg/dL (< 200); HDL Cholesterol 53 mg/dL (40-59); Total Protein 7.1 g/dL (5.7-8.2)
[2023-08-16 09:09] LABS: Free T4 (Free Thyroxine) 1.21 ng/dL (0.89-1.76)
[2023-08-16 09:11] LABS: Folate (Folic Acid) 12.2 ng/mL (>5.38)
== END | disposition home or self-care (01) ==
LOC: LAB 08:09
PROVIDERS: ATTEND Internal Medicine
DX: I10 Essential (primary) hypertension (principal); R73.01 Impaired fasting glucose
CPT/HCPCS: 36415; 80053; 80061; 82274; 82306; 82607; 82746; 83036; 84439; 84443; 85025

== ENCOUNTER → 2023-08-21 | Outpatient (CLI) | payer MEDICAID ==
[2023-08-21 14:18] LABS: Urine Bacteria NONE SEEN /hpf (None Seen); Urine Blood Negative /uL (Negative); Urine Clarity Clear (Clear); Urine Color Yellow (Yellow); Urine Mucus FEW (None Seen); Urine Protein, UAD TRACE (Negative); Urine Specific Gravity 1.021 (1.001-1.035); Urine WBC 2 /hpf (0 - 5)
[2023-08-21 14:20] LABS: Chloride 107 mmol/L (98-107); Potassium 3.5 mmol/L (3.5-5.1); Sodium 142 mmol/L (136-145)
[2023-08-21 14:21] LABS: Anion Gap 7 (5-15); Carbon Dioxide 28 mmol/L (20-30)
[2023-08-21 14:27] LABS: BUN/Creatinine Ratio 8.5 (10.0-20.0); Blood Urea Nitrogen 8 mg/dL (9-23); Glucose 99 mg/dL (74-106)
== END | disposition home or self-care (01) ==
LOC: LAB 13:45
PROVIDERS: ATTEND Internal Medicine
DX: I10 Essential (primary) hypertension (principal)
CPT/HCPCS: 36415; 80048; 81001; 83970

== ENCOUNTER 2023-09-17 10:41 | Inpatient (IN) | payer MEDICAID ==
[~2023-09-17] VITALS: Ht 154.9 cm; Wt 63.2 kg
[2023-09-17 11:20] LABS: Basophils # (auto) 0 10 ^3/uL (0-0.2); Basophils % (auto) 0.6 % (0.0-2.0); Eosinophils # (auto) 0.2 10 ^3/uL (0-0.8); Eosinophils % (auto) 2.2 % (0.0-7.0); Hematocrit 41.5 % (36.0-46.0); Hemoglobin 13.7 g/dL (12.2-16.2); Lymphocytes # (auto) 2.7 10 ^3/uL (0.4-5.4); Lymphocytes % (auto) 39.4 % (10.0-50.0); Mean Corpuscular Hemoglobin 30.4 pg (28.0-32.0); Mean Corpuscular Hgb Conc. 32.9 g/dL (32.0-36.0); Mean Corpuscular Volume 92.5 fL (80.0-100.0); Monocytes # (auto) 0.5 10 ^3/uL (0-1.3); Monocytes % (auto) 6.6 % (0.0-12.0); Neutrophils # (auto) 3.6 10 ^3/uL (1.6-8.6); Neutrophils % (auto) 51.2 % (37.0-80.0); Nucleated Red Blood Cells % 0.1 %; Red Blood Cells 4.49 10^6/uL (4.0-5.20); Red Cell Distribution Width 14.6 % (11.8-14.3)
[2023-09-17 11:34] LABS: INR 1.05 (0.9-1.15); Partial Thromboplastin Time 26.1 SEC (24.5-34.5)
[2023-09-17 11:42] LABS: Alanine Aminotransferase 16 U/L (7-40); Albumin 4.6 g/dL (3.2-4.8); Alkaline Phosphatase 91 U/L (46-116); Anion Gap 8 (5-15); Aspartate Aminotransferase 22 U/L (13-40); BUN/Creatinine Ratio 20.5 (10.0-20.0); Blood Urea Nitrogen 18 mg/dL (9-23); Carbon Dioxide 27 mmol/L (20-30); Chloride 107 mmol/L (98-107); Glucose 111 mg/dL (74-106); Potassium 3.9 mmol/L (3.5-5.1); Sodium 142 mmol/L (136-145)
[2023-09-17 11:43] LABS: Bilirubin, Total 0.5 mg/dL (0.2-1.0); Total Protein 7.3 g/dL (5.7-8.2)
[2023-09-17] MEDS: ASPirin-EC 325mg tab PO ONE (14:30)
[2023-09-17] MEDS ORDERED: LEVE500T3 PO (16:27)
[2023-09-17] MEDS ORDERED: ONDANSETRON HCL 4 MG/2 ML VIAL IV PRN (16:30)
[2023-09-17] MEDS ORDERED: DOCUSATE SOD 100 MG CAP PO PRN (16:30)
[2023-09-17] MEDS ORDERED: ACETAMINOPHEN 325 MG TAB PO PRN (16:30)
[2023-09-17 16:57] LABS: Urine Bacteria FEW /hpf (None Seen); Urine Blood Negative /uL (Negative); Urine Clarity HAZY (Clear); Urine Color Yellow (Yellow); Urine Mucus MODERATE (None Seen); Urine Protein, UAD 1+ (Negative); Urine Specific Gravity 1.033 (1.001-1.035); Urine WBC 2 /hpf (0 - 5); Urine pH 6.5 (5.0-8.0)
[2023-09-17] MEDS: HYDROcodone-ACET 5/325MG TAB PO PRN (17:08)
[2023-09-17] MEDS: traZODone HCL 50 MG TAB PO SCH (22:00)
[2023-09-17] MEDS: ATORVASTATIN 20 MG TAB PO SCH (22:17)
[2023-09-17] MEDS: levETIRAcetam 500 MG TAB PO SCH (22:18)
[2023-09-17] MEDS: METOPROLOL TARTRATE 50 MG TAB PO SCH (22:18)
[2023-09-18] VITALS (7 sets, daily range): BP systolic 128–137; BP diastolic 77–92; PULSE 78–87; RESP 16–20; TEMP 98.1–98.8; O2SAT 0–100
[2023-09-18] MEDS: HYDROcodone-ACET 5/325MG TAB PO ONE (01:05)
[2023-09-18 06:10] LABS: Basophils # (auto) 0.1 10 ^3/uL (0-0.2); Basophils % (auto) 0.7 % (0.0-2.0); Eosinophils # (auto) 0.2 10 ^3/uL (0-0.8); Eosinophils % (auto) 2.4 % (0.0-7.0); Hematocrit 36.7 % (36.0-46.0); Hemoglobin 11.9 g/dL (12.2-16.2); Lymphocytes # (auto) 2.9 10 ^3/uL (0.4-5.4); Mean Corpuscular Hemoglobin 30.6 pg (28.0-32.0); Mean Corpuscular Hgb Conc. 32.5 g/dL (32.0-36.0); Mean Corpuscular Volume 94.2 fL (80.0-100.0); Monocytes # (auto) 0.6 10 ^3/uL (0-1.3); Monocytes % (auto) 7.9 % (0.0-12.0); Neutrophils # (auto) 3.6 10 ^3/uL (1.6-8.6); White Blood Cell 7.4 10^3/uL (4.4-10.8)
[2023-09-18 06:38] LABS: Alanine Aminotransferase 11 U/L (7-40); Albumin 3.6 g/dL (3.2-4.8); Alkaline Phosphatase 70 U/L (46-116); Anion Gap 5 (5-15); Aspartate Aminotransferase 15 U/L (13-40); Bilirubin, Total 0.4 mg/dL (0.2-1.0); Blood Urea Nitrogen 15 mg/dL (9-23); Calcium 9.2 mg/dL (8.5-10.1); Carbon Dioxide 27 mmol/L (20-30); Chloride 109 mmol/L (98-107); Glucose 94 mg/dL (74-106); Sodium 141 mmol/L (136-145); Total Protein 5.9 g/dL (5.7-8.2)
[2023-09-18 09:12] LABS: Magnesium 2.1 mg/dL (1.6-2.6)
[2023-09-18 10:32] LABS: Amphetamine Screen, Urine Neg (NEGATIVE); Barbiturate Scree,Urine Neg (NEGATIVE); Benzodiazephine Screen, Urine Neg (NEGATIVE); Cannabinoid Screen, Urine Neg (NEGATIVE); Cocaine Screen, Urine Neg (NEGATIVE); Opiate Scree,Urine Pos (NEGATIVE); Phencyclidine Screen, Urine Neg (NEGATIVE)
[2023-09-18] MEDS ORDERED: LORazepam 2MG/ML-1ML VIAL IV PRN ×2 (11:00)
[2023-09-18] MEDS: MORPHINE SULFATE INJ 2 MG/ml SYRG IV PRN (11:13)
[2023-09-18] MEDS: ASPirin 81 mg TAB PO ONE (11:13)
[2023-09-18] MEDS: POTASSIUM CHL 20 Meq TABLET PO SCH (11:14)
[2023-09-18] MEDS: levETIRAcetam 500 MG TAB PO SCH (11:14)
[2023-09-18] MEDS: NIFEdipine ER 30 MG TAB PO SCH (11:15)
[2023-09-19] VITALS (7 sets, daily range): BP systolic 112–154; BP diastolic 72–91; PULSE 65–79; RESP 14–20; TEMP 97.5–98.3; O2SAT 0–98
[2023-09-19] MEDS ORDERED: cloNIDine 0.1 mg/24hr 7 DAY PATCH TD ONE (01:00)
[2023-09-19] MEDS: cloNIDine HCL 0.1 MG TAB PO ONE (01:47)
[2023-09-19 06:19] LABS: Basophils # (auto) 0.1 10 ^3/uL (0-0.2); Basophils % (auto) 0.9 % (0.0-2.0); Eosinophils # (auto) 0.2 10 ^3/uL (0-0.8); Hematocrit 36.7 % (36.0-46.0); Hemoglobin 11.8 g/dL (12.2-16.2); Lymphocytes % (auto) 46.8 % (10.0-50.0); Mean Corpuscular Hgb Conc. 32.1 g/dL (32.0-36.0); Mean Corpuscular Volume 93.3 fL (80.0-100.0); Monocytes # (auto) 0.5 10 ^3/uL (0-1.3); Monocytes % (auto) 7.6 % (0.0-12.0); Neutrophils # (auto) 2.6 10 ^3/uL (1.6-8.6); Neutrophils % (auto) 41.7 % (37.0-80.0); Nucleated Red Blood Cells % 0.2 %; Red Blood Cells 3.94 10^6/uL (4.0-5.20); Red Cell Distribution Width 14.9 % (11.8-14.3); White Blood Cell 6.4 10^3/uL (4.4-10.8)
[2023-09-19 06:26] LABS: Albumin 3.4 g/dL (3.2-4.8); Alkaline Phosphatase 70 U/L (46-116); Anion Gap 4 (5-15); Aspartate Aminotransferase 10 U/L (13-40); Blood Urea Nitrogen 24 mg/dL (9-23); Calcium 8.8 mg/dL (8.7-10.4); Carbon Dioxide 29 mmol/L (20-30); Chloride 111 mmol/L (98-107); Glucose 94 mg/dL (74-106); Lipase 75 U/L (12-53); Potassium 4.3 mmol/L (3.5-5.1); Sodium 144 mmol/L (136-145)
[2023-09-19 06:27] LABS: Bilirubin, Total 0.3 mg/dL (0.2-1.0); Total Protein 5.4 g/dL (5.7-8.2)
[2023-09-19 06:44] LABS: Alanine Aminotransferase 9 U/L (7-40)
[2023-09-19 06:54] LABS: CRP High Sensitivity 0.04 mg/dL (<1.0)
[2023-09-19] MEDS: ENALAPRIL MALEATE 2.5 MG TAB PO SCH (09:55)
[2023-09-19] MEDS: CLOPIDOGREL BISULFATE 75 MG TAB PO SCH (09:57)
[2023-09-19] MEDS: ASPirin 81 mg TAB PO SCH (09:57)
[2023-09-19] MEDS: CHOLECALCIFEROL (VITD3) 1,000UNIT=25mCg TAB PO SCH (09:58)
[2023-09-19] MEDS: CYANOCOBALAMIN 500 MCG TAB PO SCH (09:58)
[2023-09-19] MEDS: PANTOPRAZOLE 40 MG TAB PO SCH (09:58)
[2023-09-19] MEDS ORDERED: KEP500T PO (13:38)
[2023-09-19] MEDS ORDERED: PANT40T PO (13:38)
[2023-09-20 05:00] VITALS: BP 126/77; PULSE 64; RESP 17; TEMP 98.1; O2SAT 100
[2023-09-20 08:00] VITALS: BP 115/81; PULSE 79; RESP 18; TEMP 98; O2SAT 95
[2023-09-20 09:00] VITALS: BP 123/80; PULSE 65; RESP 18; TEMP 97.5; O2SAT 97
[2023-09-20 13:00] VITALS: BP 133/85; PULSE 68; RESP 18; TEMP 97.9; O2SAT 97
[2023-09-20 15:30] VITALS: BP 133/85; PULSE 72; RESP 18
== END 2023-09-20 18:05 | disposition home or self-care (01) | DRG 58 ==
LOC: ER 10:41 → OVERFLOW 16:21 → WEST WING 09-18 10:22
PROVIDERS: ADMIT Internal Medicine; ATTEND Internal Medicine
DX: G25.3 Myoclonus (principal); I27.20 Pulmonary hypertension, unspecified; E78.5 Hyperlipidemia, unspecified; I10 Essential (primary) hypertension; K21.9 Gastro-esophageal reflux disease without esophagitis; I71.40 Abdominal aortic aneurysm, without rupture, unspecified; G43.909 Migraine, unspecified, not intractable, without status migrainosus; I25.10 Atherosclerotic heart disease of native coronary artery without angina pectoris; I25.2 Old myocardial infarction; Z88.1 Allergy status to other antibiotic agents; Z79.02 Long term (current) use of antithrombotics/antiplatelets; Z79.82 Long term (current) use of aspirin; Z79.899 Other long term (current) drug therapy; Z86.711 Personal history of pulmonary embolism; Z87.891 Personal history of nicotine dependence; Z87.440 Personal history of urinary (tract) infections; Z95.5 Presence of coronary angioplasty implant and graft; Z86.73 Personal history of transient ischemic attack (TIA), and cerebral infarction without residual deficits; Z80.0 Family history of malignant neoplasm of digestive organs; Z82.49 Family history of ischemic heart disease and other diseases of the circulatory system
CPT/HCPCS: 36415; 70450; 70551; 80053; 80061; 80307; 81001; 82140; 82306; 82550; 82607; 82962; 83036; 83605; 83690; 83735; 84443; 84484; 85025; 85610; 85730; 86141; 93005; 97163; G0378

== ENCOUNTER 2024-06-09 22:44 | Inpatient (IN) | payer MEDICARE, MEDICAID ==
[~2024-06-09] VITALS: Ht 165.1 cm; Wt 68.0 kg
[~2024-06-09 22:44] MED LIST changes: -CLON0.1T PO; -DEXL30CA4 PO; -DOCU-94 PO; -DULO-141 PO; -EREN70IN SC; -FAMO20TA10 GT; -GABA-1250 PO; -HYDR-4298 PO; -HYDR-4902 PO; +HYDR100T10 PO; -HYDR25TA5 PO; -LUBI24CA6 PO; -METH250T28 PO; +PANT40T PO; -POTA-211 PO; -SUCR1TAB PO; -TOPI100T68 PO; -ZOLP10TA PO
[2024-06-09] MEDS: SODIUM CHLORIDE 0.9% 1,000 ML IV ONE (23:00)
[2024-06-09 23:05] LABS: Chloride 105 mmol/L (98-107); Potassium 3.3 mmol/L (3.5-5.1); Sodium 140 mmol/L (136-145)
[2024-06-09 23:06] LABS: Anion Gap 7 (5-15); Calcium 9.7 mg/dL (8.7-10.4); Carbon Dioxide 28 mmol/L (20-31)
[2024-06-09 23:10] LABS: Basophils # (auto) 0 10 ^3/uL (0-0.2); Basophils % (auto) 0.4 % (0.0-2.0); Eosinophils # (auto) 0.2 10 ^3/uL (0-0.8); Eosinophils % (auto) 2.2 % (0.0-7.0); Hematocrit 41.5 % (36.0-46.0); Hemoglobin 13.6 g/dL (12.2-16.2); Lymphocytes # (auto) 3.3 10 ^3/uL (0.4-5.4); Lymphocytes % (auto) 43.3 % (10.0-50.0); Mean Corpuscular Hemoglobin 30.1 pg (28.0-32.0); Mean Corpuscular Hgb Conc. 32.7 g/dL (32.0-36.0); Mean Corpuscular Volume 91.9 fL (80.0-100.0); Monocytes # (auto) 0.5 10 ^3/uL (0-1.3); Neutrophils # (auto) 3.6 10 ^3/uL (1.6-8.6); Neutrophils % (auto) 47.1 % (37.0-80.0); Nucleated Red Blood Cells % 0.1 %; Platelet Count (auto) 142 10^3/uL (140-450); Red Blood Cells 4.51 10^6/uL (4.0-5.20); White Blood Cell 7.6 10^3/uL (4.4-10.8)
[2024-06-09 23:11] LABS: Blood Urea Nitrogen 8 mg/dL (9-23); Glucose 93 mg/dL (74-106)
[2024-06-10] MEDS: METOCLOPRAMIDE HCL 5MG/ml INJ 2ml VIAL IV ONE (00:39)
[2024-06-10] MEDS: ACETAMINOPHEN 325 MG TAB PO ONE (00:39)
[2024-06-10] MEDS: hydrALAZINE HCL 20 MG/ML VL IV ONE (00:51)
--- NOTE | 2024-06-10 00:56 | ECG ---
[facility] Test Date: 2024-06-09 Test Time: 22:39:04 Pat Name: GURPREET QUIGLEY Department: ED Room: 0246T Gender: F Tobacco Blender: CHRISTIAN : 1960 Requested By: NICO ARNETT Order Number: [id number] Reading MD: Parmjit Cardoso Measurements Intervals [place] Rate: 65 P: 48 SD: 167 QRS: -25 QRSD: 82 T: 64 QT: 406 QTc: 423 Interpretive Statements Sinus rhythm Probable left atrial enlargement Abnormal R-wave progression, late transition Left ventricular hypertrophy Baseline wander in lead(s) V2 Electronically Signed On 06-13-2024 14:27:17 PDT by Parmjit Cardoso Please click the below link to view image of tracing.
--- NOTE | 2024-06-10 01:10 | DVH ---
EXAM: XY CHEST PORTABLE CLINICAL HISTORY: chest pain TECHNIQUE: Single AP view of the chest WID: COMPARISON: CHEST PORTABLE on DOS: 06/19/22, CXRP on DOS: 06/19/22 FINDINGS: Lines and tubes: A round radiopaque device projects over the upper right heart. Chest: The heart size and pulmonary vasculature is within normal limits. No pleural effusion, pneumothorax, or consolidation. The osseous structures are grossly intact. IMPRESSION: No acute cardiopulmonary abnormality.
[2024-06-10 01:11] VITALS: PULSE 78; RESP 16; O2SAT 96
--- NOTE | 2024-06-10 01:15 | DVH ---
CLINICAL HISTORY: head pain TECHNIQUE: Helical imaging carried out from skull base to vertex without intravenous contrast. This e xam was performed according to our departmental dose optimization program. Up-to-date CT equipment an d radiation dose reduction techniques are utilized as appropriate. CTDIVol: [CTDIvol] mGy DLP: 829.23 mGy-cm WID: COMPARISON: None FINDINGS: Generalized cerebral volume loss with concordant prominence of the subarachnoid spaces and ventricles , mild. There is moderate patchy low attenuation in the cerebral white matter consistent with nonspec ific white matter disease. Small chronic left cerebellar infarct. Incidental bilateral basal ganglia calcifications. There is no midline shift or mass effect. The domingo white matter interfaces are maintained. The basal cisterns are patent. There is no evidence of acute intracranial hemorrhage or extra-axial fluid neisha ection. The mastoid air cells and visualized paranasal sinuses are well-aerated. IMPRESSION: 1. No acute intracranial abnormality. 2. Mild cerebral volume loss and moderate chronic microvascular ischemic change. 3. Small chronic left cerebellar infarct.
--- NOTE | 2024-06-10 01:35 | ED.PDOC ---
History of Present Illness HPI Comments 63-year-old female with a history of hypertension, diabetes, hyperlipidemia, coronary artery disease presents with 1 day of worsening in her and substernal 02/20 chest pain that does not radiate it is associated with shortness of breath as well as bilateral achy gradual onset headache. Patient reports that she feels like her blood pressure is very high this may be causing her symptoms. She denies fever chills diarrhea. Chief Complaint: Chest Pain Time Seen by MD: 22:45 Primary Care Provider: JORGE Reviewed Notes: Nurses Notes Allergies: Coded Allergies: Doxycycline (Verified Allergy, Severe, 02/18/19) Clindamycin (Unverified Allergy, Unknown, 03/01/15) Home Meds Active Scripts Pantoprazole Sodium Sesquihydr (Pantoprazole Sodium) 40 Mg Tab, 40 MG PO DAILY for 30 Days, #30 TAB Prov:ÓSCAR SALGADO RESIDENT 09/19/23 Levetiracetam (KEPPRA TABLET) 500 Mg Tb, 1000 MG PO BID for 30 Days, #120 TAB Prov:ÓSCAR SALGADO RESIDENT 09/19/23 Metoprolol Tartrate (LOPRESSOR TABLET) 50 Mg Tb, 1 TAB PO BID, #40 TAB Prov:KALE TRUJILLO 06/25/22 Potassium Chloride (Klor-Con M20) 20 Meq Tab, 40 MEQ PO DAILY for 30 Days, #60 TAB Prov:LAUREL PATEL MD 08/29/19 Clopidogrel Bisulfate (Plavix) 75 Mg Tab, 75 MG PO DAILY for 30 Days, #30 TAB Prov:LAUREL PATEL MD 08/29/19 Atorvastatin Calcium (ATORVASTATIN CALCIUM) 20 Mg Tab, 40 MG PO HS for 30 Days, #60 TAB Prov:LAUREL PATEL MD 08/29/19 Aspirin (Aspir-Low Ec) 81 Mg Tb, 81 MG PO DAILY for 30 Days, #30 TAB Prov:LAUREL PATEL MD 08/29/19 Reported Medications Dicyclomine Hcl (BENTYL CAPSULE) 10 Mg Cp, 1 CAP PO TID, #90 CAP 11 Refills 06/20/22 Trazodone Hcl (Trazodone Hcl) 100 Mg Tab, 200 MG PO, TAB 06/20/22 Hydralazine Hcl (Hydralazine Hcl) 100 Mg Tab, 1 TAB PO TID, #90 TAB 5 Refills 06/20/22 Famotidine (PEPCID TABLET) 20 Mg Tb, 40 MG PO BID, TAB 06/20/22 Nifedipine (Nifedipine Er) 90 Mg Tab, 1 TAB PO DAILY, #30 TAB 5 Refills 06/20/22 Mode of Arrival: EMS Past Medical History PAST MEDICAL HISTORY: CAD, GERD, High Lipids, HTN, ME, Seizures, UTI'S Surgical History: , PTCA, Tonsillectomy UNION ORGANISER History: No Pertinent UNION ORGANISER History Family History Family History: Family hx of heart brigette, Family hx of HTN Social History Smoker: Non-Smoker Alcohol: Denies ETOH Use Drugs: Denies Drug Use Lives In: Home Physical Exam General Appearance: No Apparent Distress, Normal HEENT: Normal ENT Inspection, Pharynx Normal, TMs Normal Neck: Full Range of Motion, Non-Tender, Normal, Normal Inspection Respiratory: Chest Non-Tender, Lungs Clear, No Accessory Muscle Use, No Respiratory Distress, Normal Breath Sounds Cardiovascular: No Edema, No JVD, No Murmur, No Gallop, Normal Peripheral Pulses, Regular Rate/Rhythm Breast Exam: Deferred Gastrointestinal: No Organomegaly, Non Tender, No Pulsatile Mass, Normal Bowel Sounds, Soft Genitalia: Deferred Pelvic: Deferred Rectal: Deferred Extremities: No calf tenderness, Normal capillary refill, Normal inspection, Normal range of motion, Non-tender, No pedal edema Musculoskeletal : Apperance: Normal Neurologic: Alert, mononitrotoluene operator II-XII nml as Tested, No Motor Deficits, Normal Affect, Normal Mood, No Sensory Deficits Cerebellar Function: Normal Reflexes: Normal Skin: Dry, Normal Color, Warm Lymphatic: No Adenopathy Was a procedure done? Was a procedure done?: No Differential Dx Considerations may include: Hypertensive emergency, electrolyte abnormality, ACS X-Ray, Labs, Meds, VS Vital Signs Date Time Temp Pulse Resp B/P (MAP) Pulse Ox O2 Delivery O2 Flow Rate FiO2 06/10/24 01:11 78 16 96 Room Air* 0 21 21 06/10/24 00:51 198/95 06/09/24 23:33 70 06/09/24 23:30 98.3 75 15 198/95 (129) 96 98.3 06/09/24 22:46 98.3 71 18 218/116 (150) 95 06/09/24 22:44 65 Lab Test 06/10/24 00:45 06/09/24 23:40 06/09/24 22:46 Range/Units Troponin I High Sensitivity 23 22 22 </=34 ng/L White Blood Count 7.6 4.4-10.8 10^3/uL Red Blood Count 4.51 4.0-5.20 10^6/uL Hemoglobin 13.6 12.2-16.2 g/dL Hematocrit 41.5 36.0-46.0 % Mean Corpuscular Volume 91.9 80.0-100.0 fL Mean Corpuscular Hemoglobin 30.1 28.0-32.0 pg Mean Corpuscular Hemoglobin Concent 32.7 32.0-36.0 g/dL Red Cell Distribution Width 15.0 H 11.8-14.3 % Platelet Count 142 140-450 10^3/uL Mean Platelet Volume 7.9 6.9-10.8 fL Neutrophils (%) (Auto) 47.1 37.0-80.0 % Lymphocytes (%) (Auto) 43.3 10.0-50.0 % Monocytes (%) (Auto) 7.0 0.0-12.0 % Eosinophils (%) (Auto) 2.2 0.0-7.0 % Basophils (%) (Auto) 0.4 0.0-2.0 % Neutrophils # (Auto) 3.6 1.6-8.6 10 ^3/uL Lymphocytes # (Auto) 3.3 0.4-5.4 10 ^3/uL Monocytes # (Auto) 0.5 0-1.3 10 ^3/uL Eosinophils # (Auto) 0.2 0-0.8 10 ^3/uL Basophils # (Auto) 0 0-0.2 10 ^3/uL Nucleated Red Blood Cells 0.1 % Sodium Level 140 136-145 mmol/L Potassium Level 3.3 L 3.5-5.1 mmol/L Chloride Level 105 98-107 mmol/L Carbon Dioxide Level 28 20-31 mmol/L Anion Gap 7 5-15 Blood Urea Nitrogen 8 L 9-23 mg/dL Creatinine 0.89 0.550-1.02 mg/dL Glomerular Filtration Rate Calc 72 >90 mL/min BUN/Creatinine Ratio 9.0 L 10.0-20.0 Serum Glucose 93 74-106 mg/dL Calcium Level 9.7 8.7-10.4 mg/dL Current Medications Medications (Trade) Dose Ordered Sig/Rikki Route Start Time Stop Time Status Last Admin Sodium Chloride 1,000 ml @ 1,000 mls/hr Q1H ONCE IV 06/09/24 23:00 06/09/24 23:59 DC 06/09/24 23:00 Metoclopramide HCl (Reglan Injection) 10 mg ONCE ONCE IV 06/09/24 23:00 06/09/24 23:01 DC 06/10/24 00:39 Acetaminophen (Tylenol Tablet) 650 mg ONCE ONCE PO 06/09/24 23:00 06/09/24 23:01 DC 06/10/24 00:39 Hydralazine HCl (Apresoline Injection) 10 mg ONCE ONCE IV 06/10/24 00:45 06/10/24 00:46 DC 06/10/24 00:51 Time of 1ST Reevaluation: 01:34 Reevaluation 1ST: Unchanged Patient Education/Counseling: Diagnosis, Treatment Family Education/Counseling: No Family Present Departure 1 Departure Time of Disposition: 01:34 (Patient presented with hypertension and symptoms concerning for hypertensive emergency. Patient is receiving iv blood pressure medications requiring intensive monitoring. Data: 1. I ordered and reviewed the result of at least 3 labs including a CBC, BMP, and Urinalysis. 2. I independently interpreted the following tests: CT Brain: Which appears benign. EKG which is Normal Sinus RhythmRisk:This patient has a high risk of morbidity due to further diagnostic testing or treatment and may suffer from an acute cardiac disorder. Workup reveals hypertensive emergency and patient should be admitted for further workup. and possible expert consultation. ) Impression: Primary Impression: Hypertensive urgency Additional Impressions: Acute chest pain Suspected heart disease Disposition: ADMITTED INPATIENT Admit to: Med Surg Condition: Serious Critical Care Note Critical Care Time?: Yes Critical care comment: Active chest pain Authorized and Performed by: Nico Arnett MD Total critical care time: Approximately 39 minutes Due to a high probability of clinically significant, life threatening deterioration, the patient required my highest level of preparedness to intervene emergently and I personally spent this critical care time directly and personally managing the patient. This critical care time included obtaining a history; examining the patient; pulse oximetry; ordering and review of studies; arranging urgent treatment with development of a management plan; evaluation of patient's response to treatment; frequent reassessment; and, discussions with other providers. This critical care time was performed to assess and manage the high probability of imminent, life-threatening deterioration that could result in multi-organ failure. It was exclusive of separately billable procedures and treating other patients and teaching time. Please see my other sections and the rest of the note for further information on patient assessment and treatment. Stability Stability form required: No Heart Score Heart Score: Heart Score Response (Comments) Value History Moderate Suspicious 1 EKG Repolarization Disturb 1 Age >65 2 Risk Factors >3 or Hx ASHD 2 Troponin 1-2 x's Normal limit 1 Total 7 NICO ARNETT MD Jun 10, 2024 01:35
[2024-06-10] MEDS: MAGNESIUM SULFATE 1GM/100ML 100 ML IV SCH (02:07)
[2024-06-10] MEDS ORDERED: hydrALAZINE HCL 20 MG/ML VL IV PRN (02:45)
[2024-06-10] MEDS ORDERED: ACETAMINOPHEN 325 MG TAB PO PRN ×2 (02:45→13:30)
[2024-06-10] MEDS ORDERED: MORPHINE SULFATE INJ 2 MG/ml SYRG IV PRN (02:45)
[2024-06-10] MEDS ORDERED: DOCUSATE SOD 100 MG CAP PO PRN (02:45)
[2024-06-10] MEDS ORDERED: NITROGLYCERIN 0.4 MG SL TAB SL PRN (02:45)
--- NOTE | 2024-06-10 02:55 | DVHHPRES ---
History of Present Illness Resident Creating Document: TREY TOLENTINO RESIDENT History of Present Illness GURPREET QUIGLEY 59 years old female with a PMH of HTN, pulmonary HTN, seizures, aortic aneurysm, CAD with 4 stents, 3 strokes presents to the ED with the chief complaints of increase in blood pressure and chest pain 7-03/23 since last night. Yesterday patient started having headache in the frontal and back, and at night she has checked her blood pressure which was 191/100, started chest pain which is substernal to left, sharp to pressure, nonradiating, nothing make it better or worse associated with mild nausea and mild SOB. On my assessment patient denies fever, vomiting, diaphoresis, fever, chills, and other acute symptoms Past Medical History HTN, pulmonary HTN, seizures, aortic aneurysm, CAD with 4 stents, 3 strokes Past Surgical History Left knee surgery Family History Hypertension, heart disease in mother Past Social History Lives with son. denies smoking, alcohol and other drug abuse Review of Systems Constitutional: No: Fever, Chills, Sweats, Weakness, Malaise, Other Eyes: No: Pain, Vision change, Conjunctivae inflammation, Eyelid inflammation, Other, Redness ENT: No: Ear pain, Ear discharge, Nose pain, Nose discharge, Nose congestion, Mouth pain, Mouth swelling, Throat pain, Throat swelling, Other Respiratory: Shortness of breath Cardiovascular: Chest Pain Gastrointestinal: Nausea Genitourinary: No Dysuria, No Frequency, No Incontinence, No Hematuria, No Retention, No Other Musculoskeletal: No: other, neck pain, shoulder pain, arm pain, back pain, hand pain, leg pain, foot pain Skin: No: Rash, Lesions, Jaundice, Bruising, Other Neurological: No: Weakness, Numbness, Incoordination, Change in speech, Confusion, Seizures, Other Allergies: Coded Allergies: Doxycycline (Verified Allergy, Severe, 02/18/19) Clindamycin (Unverified Allergy, Unknown, 03/01/15) Medications Current Medications Medications Dose Ordered Sig/Rikki Route Start Time Stop Time Status Last Admin Dose Admin Magnesium Sulfate/ Dextrose 100 ml @ 100 mls/hr Q1H IV 06/10/24 02:00 06/10/24 03:59 06/10/24 02:07 100 MLS/HR Sodium Chloride 10 ml Q8HR IV 06/10/24 06:00 Acetaminophen 325 mg Q4HP PRN PO 06/10/24 02:45 Ondansetron HCl 4 mg Q4HP PRN IV 06/10/24 02:45 Docusate Sodium 100 mg BIDPRN PRN PO 06/10/24 02:45 Morphine Sulfate 2 mg Q4HPRN PRN IV 06/10/24 02:45 Nitroglycerin 0.4 mg Q5MINP PRN SL 06/10/24 02:45 Morphine Sulfate 2 mg Q30M PRN IV 06/10/24 02:45 Hydralazine HCl 10 mg Q6HPRN PRN IV 06/10/24 02:45 Aspirin 81 mg DAILY PO 06/10/24 10:00 Atorvastatin Calcium 40 mg HS PO 06/10/24 22:00 Clopidogrel Bisulfate 75 mg DAILY PO 06/10/24 10:00 Metoprolol Tartrate 50 mg BID PO 06/10/24 10:00 Pantoprazole Sodium 40 mg DAILY PO 06/10/24 10:00 Potassium Chloride 40 meq DAILY PO 06/10/24 10:00 Hydralazine HCl 100 mg TID PO 06/10/24 06:00 Nifedipine 90 mg DAILY PO 06/10/24 10:00 Exam Vital Signs Vital Signs Date Time Temp Pulse Resp B/P (MAP) Pulse Ox O2 Delivery O2 Flow Rate FiO2 06/10/24 02:00 78 17 176/96 (122) 98 06/10/24 01:11 Room Air* 0 21 21 06/09/24 23:30 98.3 98.3 Exam Pt is lying on bed General Appearance: Alert, Oriented X3, Cooperative, Not in acute distress HEENT: Atraumatic, Mucous membranes moist/pink Respiratory: Clear to auscultation, Normal air movement, No added sounds Cardiovascular: Regular rate, Normal S1, Normal S2, No murmurs Abdominal: Active bowel sounds, Soft, no distention, no tenderness Extremities: No edema, Normal pulses, No tenderness/swelling Skin: No Significant rash, except past surgical scars Neuro: Normal speech, sensorimotor deficits none, very minimal weakness in the right side extremities (attributed to CVA) Psych/Mental Status: Mental status NL, Mood NL Nurse was there as sharperone during examination Labs/Xrays Labs Test 06/10/24 00:45 06/09/24 22:46 Range/Units Troponin I High Sensitivity 23 </=34 ng/L White Blood Count 7.6 4.4-10.8 10^3/uL Red Blood Count 4.51 4.0-5.20 10^6/uL Hemoglobin 13.6 12.2-16.2 g/dL Hematocrit 41.5 36.0-46.0 % Mean Corpuscular Volume 91.9 80.0-100.0 fL Mean Corpuscular Hemoglobin 30.1 28.0-32.0 pg Mean Corpuscular Hemoglobin Concent 32.7 32.0-36.0 g/dL Red Cell Distribution Width 15.0 H 11.8-14.3 % Platelet Count 142 140-450 10^3/uL Mean Platelet Volume 7.9 6.9-10.8 fL Neutrophils (%) (Auto) 47.1 37.0-80.0 % Lymphocytes (%) (Auto) 43.3 10.0-50.0 % Monocytes (%) (Auto) 7.0 0.0-12.0 % Eosinophils (%) (Auto) 2.2 0.0-7.0 % Basophils (%) (Auto) 0.4 0.0-2.0 % Neutrophils # (Auto) 3.6 1.6-8.6 10 ^3/uL Lymphocytes # (Auto) 3.3 0.4-5.4 10 ^3/uL Monocytes # (Auto) 0.5 0-1.3 10 ^3/uL Eosinophils # (Auto) 0.2 0-0.8 10 ^3/uL Basophils # (Auto) 0 0-0.2 10 ^3/uL Nucleated Red Blood Cells 0.1 % Sodium Level 140 136-145 mmol/L Potassium Level 3.3 L 3.5-5.1 mmol/L Chloride Level 105 98-107 mmol/L Carbon Dioxide Level 28 20-31 mmol/L Anion Gap 7 5-15 Blood Urea Nitrogen 8 L 9-23 mg/dL Creatinine 0.89 0.550-1.02 mg/dL Glomerular Filtration Rate Calc 72 >90 mL/min BUN/Creatinine Ratio 9.0 L 10.0-20.0 Serum Glucose 93 74-106 mg/dL Calcium Level 9.7 8.7-10.4 mg/dL Assessment/Plan Assessment/Plan # chest pain likely ACS versus hypertensive emergency -reviewed EKG -troponins x3 were negative -pain management as needed -consulted cardiology for further management # Hypertensive emergency vs urgency -continuously monitor blood pressure -hydralazine 10 mg p.r.n. -resumed home meds -ordered echocardiogram -consulted cardiology for further evaluation -head CT showed no acute changes # Hypokalemia - Repleting - Monitor lab # CAD with s/p stents x4 -resume home meds Cardiac diet Patient on Plavix Protonix Reconciled home meds Goals of care with the patient for more than 27 minutes: Full code status Case management discussed with Dr. Ramos, patient and nurse Plan discussed with: Patient, Other (RN) My Orders Orders - TREY TOLENTINO RESIDENT Procedure Category Date Status Time Admit ADMIT 06/10/24 Transmitted 02:33 Allergies DESHAWN 06/10/24 In Process 02:33 Code Status CODE 06/10/24 Transmitted 02:33 2 Gm Sodium Diet DIET 06/10/24 Transmitted Breakfast Sodium Chloride Lock PHA 06/10/24 In Process (Saline Lock Ns) 06:00 Morphine Sulfate PHA 06/10/24 In Process Injection 02:45 Nitroglycerin PHA 06/10/24 In Process Sublingual (Ntrostat 02:45 Morphine Sulfate PHA 06/10/24 In Process Injection 02:45 Oxygen By Nasal RT 06/10/24 Transmitted Cannula 02:33 Stat Ekg For Chest DESHAWN 06/10/24 In Process Pain 02:33 Notify Of Changes DESHAWN 06/10/24 In Process From Base 02:[address] Registrar For DESHAWN 06/10/24 In Process 24 Hours 02:33 Emergency Dysrhythmia DESHAWN 06/10/24 In Process Protocol 02:33 Rhythm Strips Once DESHAWN 06/10/24 In Process Every Shift 02:33 B-Type Natriuretic LAB 06/10/24 Logged Peptide 02:33 Drug Screen LAB 06/10/24 Logged 02:33 Hemoglobin A1c LAB 06/10/24 Logged 02:33 PTPTT LAB 06/11/24 Verified 04:00 Vitamin D, 25-Hydroxy LAB 06/10/24 Logged 02:33 Vitamin B12 LAB 06/10/24 Logged 02:33 Urinalysis LAB 06/10/24 Logged 02:33 Thyroid Stimulating LAB 06/10/24 Logged Hormone 02:33 * Cardiology Consult CONS 06/10/24 Transmitted 02:33 Acetaminophen Tablet PHA 06/10/24 In Process (Tylenol Tablet) 02:45 Ondansetron Hcl PHA 06/10/24 In Process (Zofran) 02:45 Docusate Sodium PHA 06/10/24 In Process Capsule (Colace 02:45 Cardiac DIET 06/10/24 Transmitted Diet-2gna,Lofat,Lochol Breakfast Echo 2d Mode Cardiac US 06/10/24 Logged DOP 02:33 Hydralazine Injection PHA 06/10/24 In Process (Apresoline Inject 02:45 Aspirin Enteric PHA 06/10/24 In Process Coated Tablet 10:00 Atorvastatin (Lipitor) PHA 06/10/24 In Process 22:00 Clopidogrel Bisulfate PHA 06/10/24 In Process (Plavix) 10:00 Metoprolol Tartrate PHA 06/10/24 In Process Tablet (Lopressor Ta 10:00 Pantoprazole Tablet PHA 06/10/24 In Process (Protonix Tablet) 10:00 Potassium Er Tablet PHA 06/10/24 In Process (Klor-Con Tablet) 10:00 Hydralazine Hcl PHA 06/10/24 In Process Tablet (Apresoline 06:00 Nifedipine Er PHA 06/10/24 In Process (Procardia Xl 10:00 Magnesium LAB 06/10/24 In Process 02:44 Date of Service: Jun 10, 2024 Billing Provider: LAUREL RAMOS MD Common Visit Codes: 84897-[id number] INP/OBS CARE (HIGH) Secondary Visit Codes: 47626-[id number] CARE PLAN 30 MINUTES RAJANLEONARDMICHAEL RESIDENT Jun 10, 2024 02:55 LAUREL RAMOS MD Jun 10, 2024 08:30
[2024-06-10] MEDS: POTASSIUM EFFERVESENT TAB 25 MEQ PO ONE (03:24)
[2024-06-10] MEDS: SODIUM CHLOR 0.9% PF (SALINE LOCK) 10ML VIAL/SYR IV SCH (05:12)
[2024-06-10] MEDS: hydrALAZINE HCL 25 MG TAB PO SCH (05:47)
[2024-06-10 06:15] LABS: Alanine Aminotransferase 10 U/L (7-40); Albumin 3.6 g/dL (3.2-4.8); Alkaline Phosphatase 83 U/L (46-116); Anion Gap 6 (5-15); Aspartate Aminotransferase 11 U/L (13-40); BUN/Creatinine Ratio 8.7 (10.0-20.0); Blood Urea Nitrogen 6 mg/dL (9-23); Calcium 8.8 mg/dL (8.7-10.4); Carbon Dioxide 25 mmol/L (20-31); Chloride 110 mmol/L (98-107); Glucose 87 mg/dL (74-106); Sodium 141 mmol/L (136-145)
[2024-06-10 06:16] LABS: Bilirubin, Total 0.4 mg/dL (0.2-1.0); Total Protein 6.2 g/dL (5.7-8.2)
[2024-06-10] MEDS: HYDROcodone-ACET 5/325MG TAB PO ONE (06:36)
[2024-06-10] MEDS ORDERED: MINOXIDIL 2.5 MG TAB PO SCH (08:00)
[2024-06-10 08:15] LABS: Basophils # (auto) 0 10 ^3/uL (0-0.2); Basophils % (auto) 0.8 % (0.0-2.0); Eosinophils # (auto) 0.1 10 ^3/uL (0-0.8); Eosinophils % (auto) 2.2 % (0.0-7.0); Hematocrit 37.4 % (36.0-46.0); Hemoglobin 12.4 g/dL (12.2-16.2); Lymphocytes # (auto) 2.2 10 ^3/uL (0.4-5.4); Lymphocytes % (auto) 35.2 % (10.0-50.0); Mean Corpuscular Hemoglobin 30.1 pg (28.0-32.0); Mean Corpuscular Hgb Conc. 33.3 g/dL (32.0-36.0); Mean Corpuscular Volume 90.4 fL (80.0-100.0); Monocytes # (auto) 0.5 10 ^3/uL (0-1.3); Monocytes % (auto) 7.7 % (0.0-12.0); Neutrophils # (auto) 3.4 10 ^3/uL (1.6-8.6); Neutrophils % (auto) 54.1 % (37.0-80.0); Platelet Count (auto) 141 10^3/uL (140-450); Red Blood Cells 4.14 10^6/uL (4.0-5.20); Red Cell Distribution Width 14.7 % (11.8-14.3); White Blood Cell 6.3 10^3/uL (4.4-10.8)
[2024-06-10] MEDS: ONDANSETRON HCL 4 MG/2 ML VIAL IV PRN (09:32)
[2024-06-10] MEDS: MORPHINE SULFATE INJ 2 MG/ml SYRG IV PRN (09:32)
--- NOTE | 2024-06-10 10:11 | DVH ---
Procedure: CT CHEST WITHOUT CONTRAST Reason for study/Clinical History: Comparison Study: None available at time of dictation. Exam Date: 06/10/2024 09:16 AM TECHNIQUE: Multidetector CT of the chest was performed from the lung apices to the upper abdomen with out the use of intravenous contract. Axial, coronal and sagittal multiplanar reformats were performed . Radiation Dose Information: CT Dose: CTDI volume is 6.96 mGy. Dose-length product is 251.82 mGy*cm The dose indicators for CT are the volume Computed Tomography (CT) Dose Index (CTDIvol) and the Dose Length Product (DLP), and are measured in units of mGy and mGy-cm, respectively. These indicators are not patient dose, but values generated from the CT scanner acquisition factors. The report includes radiation exposure data for exposures received during this examination. Radiation optimization: All CT scans at this facility use at least one of these dose optimization gissell hniques: automated exposure control mA and/or kV adjustment per patient size (includes targeted exam s where dose is matched to clinical indication) or iterative reconstruction. FINDINGS Lungs: No focal consolidation. No suspicious appearing pulmonary nodule or mass. There is a calcified granuloma in the posterior right lung base. Heart/Vascular Structures: Normal heart size. No pericardial effusion. Lymph Nodes: There is a 2.6 x 3.2 cm densely calcified azygesophageal window lymph node. There are no pathologically enlarged mediastinal lymph nodes. There is no axillary lymphadenopathy. Pleura: No pleural effusion or significant pneumothorax. Musculoskeletal: No acute osseous abnormality. Soft tissues: Unremarkable. Upper abdomen: Bilateral adrenal glands appear thickened probably related to hyperplasia. The remain ing visualized solid intra-abdominal structures appear within normal limits. IMPRESSION: 1. There is no acute pulmonary process. 2. Chronic granulomatous disease with a prominent densely calcified azygoesophageal window mediastina l lymph node. HS:Y
[2024-06-10] MEDS: CLOPIDOGREL BISULFATE 75 MG TAB PO SCH (10:25)
[2024-06-10] MEDS: PANTOPRAZOLE 40 MG TAB PO SCH (10:25)
[2024-06-10] MEDS: METOPROLOL TARTRATE 50 MG TAB PO SCH (10:25)
[2024-06-10] MEDS: NIFEdipine ER 30 MG TAB PO SCH (10:25)
[2024-06-10] MEDS: ASPirin-EC 81 mg tab PO SCH (10:26)
[2024-06-10] MEDS: POTASSIUM CHL 20 Meq TABLET PO SCH (10:26)
[2024-06-10 10:32] LABS: COVID19 ANTIGEN SOFIA FIA NEGATIVE (NEGATIVE)
[2024-06-10 11:48] LABS: Urine Bacteria None Seen /hpf (None Seen)
--- NOTE | 2024-06-10 11:53 | DVHPNRES ---
Progress Note Date Seen: Jun 10, 2024 Resident Creating Document: LETY CAMPBELL RESIDENT Medical Necessity Reason Pt with a Central, PICC or Fol: No Subjective Review of Systems This is a 63-year-old female with PMHx of CAD with 40 years, pulmonary hypertension, history of three strokes (last one in 2019), history of seizure disorder (last one four years ago), migraine, AAA diagnosed in 2021, hepatic steatosis, migraine who presented to the ER with a chief complaint of headache and chest pain starting 06/09. Patient reports waking up with a headache which was bifrontal, radiating to the neck and the back. She checked her blood pressure which was 190/104 mm Hg, following which she experienced chest pain started on rest, located in epigastric region, radiates to left arm and is pressure type in nature. She says that the chest pain is continuous, 7/10 in intensity and feels like somebody stepping on her. Stated that the pain is unrelated to the exertion. She walks with a cane. Associated symptoms include nausea and diaphoresis but no fever/chills/vomiting. She says that she ran out of medications including antihypertensives and Keppra. Review of systems positive for constipation, patient had a bowel movement this morning. Family history Unremarkable Social history Lives with grandson, quit smoking 25 years back, former drinker, denies illicit drug use. PCP Dr. Ramos Home medications: Aspirin 81 mg, atorvastatin, clopidogrel 75 mg, Keppra 500 mg b.i.d., metoprolol 50 mg b.i.d., pantoprazole 40 mg p.o. daily, trazodone 200 mg Patient seen and examined in ER bed 11. Reports experiencing a headache and chest pain. Chest is tender to palpation, diffuse abdominal tenderness noted on exam. Objective vital signs Vital Sign Date Time Temp Pulse Resp B/P (MAP) Pulse Ox O2 Delivery O2 Flow Rate FiO2 06/10/24 11:31 69 149/83 06/10/24 10:26 22 06/10/24 10:00 98 06/10/24 01:11 Room Air* 0 21 21 06/09/24 23:30 98.3 98.3 medications Current Medications Medications Dose Ordered Sig/Rikki Route Start Time Stop Time Status Last Admin Dose Admin Sodium Chloride 10 ml Q8HR IV 06/10/24 06:00 06/10/24 05:12 10 ML Acetaminophen 325 mg Q4HP PRN PO 06/10/24 02:45 Ondansetron HCl 4 mg Q4HP PRN IV 06/10/24 02:45 06/10/24 09:32 4 MG Docusate Sodium 100 mg BIDPRN PRN PO 06/10/24 02:45 Morphine Sulfate 2 mg Q4HPRN PRN IV 06/10/24 02:45 06/10/24 09:32 2 MG Nitroglycerin 0.4 mg Q5MINP PRN SL 06/10/24 02:45 Morphine Sulfate 2 mg Q30M PRN IV 06/10/24 02:45 Hydralazine HCl 10 mg Q6HPRN PRN IV 06/10/24 02:45 Aspirin 81 mg DAILY PO 06/10/24 10:00 06/10/24 10:26 81 MG Atorvastatin Calcium 40 mg HS PO 06/10/24 22:00 Clopidogrel Bisulfate 75 mg DAILY PO 06/10/24 10:00 06/10/24 10:25 75 MG Metoprolol Tartrate 50 mg BID PO 06/10/24 10:00 06/10/24 10:25 50 MG Pantoprazole Sodium 40 mg DAILY PO 06/10/24 10:00 06/10/24 10:25 40 MG Potassium Chloride 40 meq DAILY PO 06/10/24 10:00 06/10/24 10:26 40 MEQ Hydralazine HCl 100 mg TID PO 06/10/24 06:00 06/10/24 05:47 100 MG Nifedipine 90 mg DAILY PO 06/10/24 10:00 06/10/24 10:25 90 MG Examination Physical examination General: Patient alert and oriented x4. Patient following commands. HEENT: Normocephalic, atraumatic, mucous membranes are dry Respiratory/pulmonary: Clear lungs bilaterally, vesicular murmurs present in almost all lung stubbs, no associated crackles or wheezes. Cardiovascular: Normal heart sounds S1 and S2 with no associated murmurs. Chest is tender to palpation. Abdomen: Abdomen nondistended, diffusely tender to palpation but no rebound tenderness, no palpable masses. Extremities: There is no peripheral edema present at the lower extremities. Peripheral Pulses: 3+ Radial (R). 3+ Radial (L). 3+ Dorsalis pedis (R). 3+ Dorsalis pedis(L) Skin: No rashes or pruritus Neurological: Intact cranial nerves with no focal neurologic deficits laboratory and microbiology Laboratory Tests 06/10/24 07:49 06/10/24 05:21 Test 06/10/24 05:21 Range/Units Serum Glucose 87 74-106 mg/dL Labs and/or images reviewed: Labs reviewed by me, Image(s) reviewed by me Problem List/Assessment/Plan Problem List/Assessment/Plan Acute chest pain, rule out ACS History of CAD with 4 XAVIER - RCA 2021, LAD [address] Cardoso Ischemic cardiomyopathy Last echocardiogram 2021 shows concentric LVH she would enlarged left atrium, LVEF 75%. EKG completed, shows sinus rhythm. No ST changes or AV block between. Telemetry reviewed, shows sinus rhythm, heart rate in 80s BP Troponin 22, 22, 23 BNP 78 Cardiology consultation - recommend for the patient to undergo an coronary angiogram with left heart catheterization 06/[address] completed, no acute findings, mild cerebral volume loss, chronic ischemic changes. Small chronic left cerebellar infarction. Nifedipine 90mg, metoprolol 50mg bid, hydralazine 100mg tid daily Widened mediastinum CT chest completed which shows chronic granulomatous disease with densely calcified azygoesophageal lymph node oral. R lower lobe nodule. CT chest findings are consistent with previous CT in 2019 History of seizures-last episode four years ago Patient ran out of Keppra Continue Keppra 500 mg b.i.d. Bilateral adrenal gland hyperplasia Outpatient workup advised History of multiple CVA-last episode 2019 Continue daily aspirin 81 mg and Plavix 70 mg Continue atorvastatin 20 mg daily Aortoiliac atherosclerosis Continue atorvastatin 20 mg daily History of migraine headache History of internal hemorrhoids Seen on colonoscopy which was done in 2019 Insomnia and anxiety Continue trazodone 200mg daily Dyslipidemia Chol 203, LDL 124, HDL 74 Atorvastatin 40mg PO daily GERD Pantoprazole 40 mg daily DVT prophylaxis Lovenox 40 mg sc daily Plan discussed with patient and all questions have been answered Goals of care discussed with the patient for more than 32 minute, Case discussed with Dr. Ramos. Kevin heart Angiogram 06/11. NPO starting midnight. CRITICAL CARE TIME 38 MINS Plan discussed with: Patient My Orders My Orders Orders - LETY CAMPBELL RESIDENT Procedure Category Date Status Time Pt Request For Service PT 10/28/24 Logged 11:31 Date of Service: Jun 10, 2024 Billing Provider: LAUREL RAMOS MD Common Visit Codes: 10823-BICGKEIX CARE 30-74 MIN LETY CAMPBELL RESIDENT Jun 10, 2024 11:53 LAUREL RAMOS MD Jun 10, 2024 19:08
[2024-06-10 12:20] LABS: Amphetamine Screen, Urine Neg (NEGATIVE); Barbiturate Scree,Urine Neg (NEGATIVE); Benzodiazephine Screen, Urine Neg (NEGATIVE); Cannabinoid Screen, Urine Neg (NEGATIVE); Cocaine Screen, Urine Neg (NEGATIVE); Opiate Scree,Urine Pos (NEGATIVE); Phencyclidine Screen, Urine Neg (NEGATIVE)
[2024-06-10 12:24] LABS: Urine Blood Negative /uL (Negative); Urine Clarity Clear (Clear); Urine Color Yellow (Yellow); Urine Hyaline Cast FEW /lpf (0 - 2); Urine Protein, UAD Negative (Negative); Urine Urobilinogen Normal (Negative); Urine WBC 1 /hpf (0 - 5); Urine pH 6.5 (5.0-9.0)
[2024-06-10] MEDS: levETIRAcetam 500 MG TAB PO SCH (12:27)
[2024-06-10] MEDS: ENOXAPARIN SOD 40 MG/0.4 ML SYRINGE SC SCH (13:02)
--- NOTE | 2024-06-10 13:42 | DVHINCON2 ---
Date Seen: Jun 10, 2024 Referring Physician MD Toby resident Reason for Consultation Chest pain History of Present Illness This is a 63-year-old female patient who presents to the emergency room with chief complaint of migraine and chest pain. Patient reports that yesterday morning she began to experience a migraine that wrapped around her head and traveled down her neck. Throughout the day of the migraine was not subsiding. Later in the evening around 7:00 p.m., she started noticing chest pain. She describes the chest pain as unprovoked, pressure-like in nature, constant, and substernal with radiation to her left breast. Associated symptoms include dyspnea on exertion. The patient denies any alleviating or precipitating factors. The patient reports that her blood pressure was checked at home and reached as high as systolic 200s. EMS was called and the patient was brought to the emergency room for further evaluation. Initial twelve lead electrocardiogram reveals normal sinus rhythm with nonspecific ST changes to lateral leads. Initial troponin level of 22ng/L with flat trend thereafter. Significant past medical history includes coronary artery disease status post multiple PTCAs x4 XAVIER (on Plavix and Aspirin), hypertension, pulmonary hypertension, dyslipidemia, abdominal aortic aneurysm (without intervention), history of pulmonary embolism, CVA x3 with right-sided deficit, and seizure disorder. The patient mentions that she has been out of most of her medications for approximately four months now. The patient reports that of all of her medications, the only one that she has been taking is hydralazine. The patient states that she is to follow up with in the outpatient setting but has not seen him in over a year. Patient admits to being off Plavix and aspirin for four months. Past Medical History Past medical history reviewed. No other significant than mentioned above. Past Surgical History Jaw reconstruction Family History: FH: heart attack G8 MOTHER G8 BROTHER FH: pancreatic cancer G8 FATHER FH: pulmonary embolism FH: stroke G8 MOTHER Hypertension G8 BROTHER G8 SISTER G8 MOTHER G8 FATHER G8 BROTHER G8 BROTHER G8 BROTHER 19 CHILD G8 SISTER Hypertension G8 BROTHER G8 SISTER G8 MOTHER G8 FATHER G8 BROTHER G8 BROTHER G8 BROTHER 19 CHILD G8 SISTER Family History Family history reviewed. Social History Remote history of polysubstance abuse, quit approximately 25 years ago Patient has a 13 pack-year history, quit approximately 25 years ago Patient denies any alcohol use Allergies: Coded Allergies: Doxycycline (Verified Allergy, Severe, 02/18/19) Clindamycin (Unverified Allergy, Unknown, 03/01/15) Home Meds Active Scripts Pantoprazole Sodium Sesquihydr (Pantoprazole Sodium) 40 Mg Tab, 40 MG PO DAILY for 30 Days, #30 TAB Prov:AVAÓSCAR LOVE [facility] 09/19/23 Levetiracetam (KEPPRA TABLET) 500 Mg Tb, 1000 MG PO BID for 30 Days, #120 TAB [facility]23 Metoprolol Tartrate (LOPRESSOR TABLET) 50 Mg Tb, 1 TAB PO BID, #40 TAB Prov:KALE TRUJILLO 06/25/22 Potassium Chloride (Klor-Con M20) 20 Meq Tab, 40 MEQ PO DAILY for 30 Days, #60 TAB Prov:LAUREL PATEL MD 08/29/19 Clopidogrel Bisulfate (Plavix) 75 Mg Tab, 75 MG PO DAILY for 30 Days, #30 TAB Prov:LAUREL PATEL MD 08/29/19 Atorvastatin Calcium (ATORVASTATIN CALCIUM) 20 Mg Tab, 40 MG PO HS for 30 Days, #60 TAB Prov:LAUREL PATEL MD 08/29/19 Aspirin (Aspir-Low Ec) 81 Mg Tb, 81 MG PO DAILY for 30 Days, #30 TAB Prov:LAUREL PATEL MD 08/29/19 Reported Medications Dicyclomine Hcl (BENTYL CAPSULE) 10 Mg Cp, 1 CAP PO TID, #90 CAP 11 Refills 06/20/22 Trazodone Hcl (Trazodone Hcl) 100 Mg Tab, 200 MG PO, TAB 06/20/22 Hydralazine Hcl (Hydralazine Hcl) 100 Mg Tab, 1 TAB PO TID, #90 TAB 5 Refills 06/20/22 Famotidine (PEPCID TABLET) 20 Mg Tb, 40 MG PO BID, TAB 06/20/22 Nifedipine (Nifedipine Er) 90 Mg Tab, 1 TAB PO DAILY, #30 TAB 5 Refills 06/20/22 Home Meds Home medications reviewed. Current Medications Current Medications Medications (Trade) Dose Ordered Sig/Rikki Route PRN Reason Start Time Stop Time Status Last Admin Magnesium Sulfate/ Dextrose 100 ml @ 100 mls/hr Q1H IV 06/10/24 02:00 06/10/24 03:59 DC 06/10/24 03:21 Sodium Chloride (Saline Lock Ns) 10 ml Q8HR IV 06/10/24 06:00 06/10/24 05:12 Acetaminophen (Tylenol Tablet) 325 mg Q4HP PRN PO MILD PAIN (1-3 PAIN SCALE) 06/10/24 02:45 Ondansetron HCl (Zofran) 4 mg Q4HP PRN IV NAUSEA / VOMITING 06/10/24 02:45 06/10/24 09:32 Docusate Sodium (Colace Capsule) 100 mg BIDPRN PRN PO FOR CONSTIPATION 06/10/24 02:45 Morphine Sulfate 2 mg Q4HPRN PRN IV SEVERE PAIN (7-10 PAIN SCALE) 06/10/24 02:45 06/10/24 09:32 Nitroglycerin (Ntrostat Sublingual) 0.4 mg Q5MINP PRN SL FOR CHEST PAIN 06/10/24 02:45 Morphine Sulfate 2 mg Q30M PRN IV FOR CHEST PAIN 06/10/24 02:45 Hydralazine HCl (Apresoline Injection) 10 mg Q6HPRN PRN IV SBP>150 06/10/24 02:45 Aspirin (Ecotrin Enteric Coated Tablet) 81 mg DAILY PO 06/10/24 10:00 06/10/24 10:26 Atorvastatin Calcium (Lipitor) 40 mg HS PO 06/10/24 22:00 Clopidogrel Bisulfate (Plavix) 75 mg DAILY PO 06/10/24 10:00 06/10/24 10:25 Metoprolol Tartrate (Lopressor Tablet) 50 mg BID PO 06/10/24 10:00 06/10/24 10:25 Pantoprazole Sodium (Protonix Tablet) 40 mg DAILY PO 06/10/24 10:00 06/10/24 10:25 Potassium Chloride (Klor-Con Tablet) 40 meq DAILY PO 06/10/24 10:00 06/10/24 10:26 Hydralazine HCl (Apresoline Tablet) 100 mg TID PO 06/10/24 06:00 06/10/24 05:47 Nifedipine (Procardia Xl (Time-Release)) 90 mg DAILY PO 06/10/24 10:00 06/10/24 10:25 Minoxidil (Loniten Tablet) 2.5 mg DAILY PO 06/10/24 08:00 06/10/24 08:52 DC Levetiracetam (Keppra Tablet) 500 mg BID PO 06/10/24 12:15 06/10/24 12:27 Trazodone HCl (Desyrel) 200 mg HS PO 06/10/24 22:00 Enoxaparin Sodium (Lovenox) 40 mg DAILY SC 06/10/24 12:30 06/10/24 13:02 Review of Systems Constitutional: No symptom reported Ears, Nose, & Throat: No symptom reported Eyes: No symptom reported Neurological: Migraine Pulmonary/Respiratory: Dyspnea on exertion Cardiovascular: Chest pain Gastrointestinal: No symptom reported Genitourinary: No symptom reported Musculoskeletal: No symptom reported Skin: No symptom reported Psychiatric: No symptom reported Endocrine: No symptom reported Hematologic/Lymphatic: No symptom reported Vital Signs Vital Signs Date Time Temp Pulse Resp B/P (MAP) Pulse Ox O2 Delivery O2 Flow Rate FiO2 06/10/24 12:00 68 18 151/90 (110) 94 06/10/24 01:11 Room Air* 0 21 21 06/09/24 23:30 98.3 98.3 Physical Exam General Appearance: Cooperative. Well-developed. Well-nourished. No acute distress. Pulmonary/Respiratory: Clear, bilateral breaths sounds. Cardiovascular/Chest: Regular rate and rhythm. Peripheral Pulses: 2+ Radial (R). 2+ Radial (L). 2+ Pedal (R). 2+ Pedal (L) Abdominal Exam: Normal bowel sounds. Ankle Exam: Negative ankle edema Lower extremities: Negative lower extremity edema Neuro/Mental Status: A/OX4, coherent. Thoughts/Psych: Normal thought pattern. Appropriate mood and affect. Good judgment and insight. Appearance: No acute distress. Skin Exam: Normal inspection. Normal color. Warm and dry. Labs/Diagnostic Data Labs Test 06/10/24 11:30 06/10/24 09:25 06/10/24 07:49 06/10/24 05:21 Range/Units Urine Color Yellow Yellow Urine Clarity Clear Clear Urine pH 6.5 5.0-9.0 Urine Specific [place] 1.020 1.001-1.035 Urine Protein Negative Negative Urine Ketones Negative Negative Urine Blood Negative Negative /uL Urine Nitrite Negative Negative Urine Bilirubin Negative Negative Urine Urobilinogen Normal Negative mg/dL Urine Leukocyte Esterase Negative Negative /uL Urine RBC None seen 0 - 4 /hpf Urine WBC 1 0 - 5 /hpf Urine Squamous Epithelial Cells Few <5 /hpf Urine Bacteria None seen None Seen /hpf Urine Hyaline Casts Few 0 - 2 /lpf Urine Glucose Normal Normal mg/dL Urine Opiates Screen Pos NEGATIVE Urine Fentanyl Screen Neg NEGATIVE Urine Barbiturates Screen Neg NEGATIVE Urine Phencyclidine Screen Neg NEGATIVE Urine Amphetamines Screen Neg NEGATIVE Urine Benzodiazepines Screen Neg NEGATIVE Urine Cocaine Screen Neg NEGATIVE Urine Cannabinoids Screen Neg NEGATIVE SARS-CoV-2 Antigen (Rapid) Negative NEGATIVE White Blood Count 6.3 4.4-10.8 10^3/uL Red Blood Count 4.14 4.0-5.20 10^6/uL Hemoglobin 12.4 12.2-16.2 g/dL Hematocrit 37.4 36.0-46.0 % Mean Corpuscular Volume 90.4 80.0-100.0 fL Mean Corpuscular Hemoglobin 30.1 28.0-32.0 pg Mean Corpuscular Hemoglobin Concent 33.3 32.0-36.0 g/dL Red Cell Distribution Width 14.7 H 11.8-14.3 % Platelet Count 141 140-450 10^3/uL Mean Platelet Volume 7.9 6.9-10.8 fL Neutrophils (%) (Auto) 54.1 37.0-80.0 % Lymphocytes (%) (Auto) 35.2 10.0-50.0 % Monocytes (%) (Auto) 7.7 0.0-12.0 % Eosinophils (%) (Auto) 2.2 0.0-7.0 % Basophils (%) (Auto) 0.8 0.0-2.0 % Neutrophils # (Auto) 3.4 1.6-8.6 10 ^3/uL Lymphocytes # (Auto) 2.2 0.4-5.4 10 ^3/uL Monocytes # (Auto) 0.5 0-1.3 10 ^3/uL Eosinophils # (Auto) 0.1 0-0.8 10 ^3/uL Basophils # (Auto) 0 0-0.2 10 ^3/uL Nucleated Red Blood Cells 0.0 % Sodium Level 141 136-145 mmol/L Potassium Level 4.0 3.5-5.1 mmol/L Chloride Level 110 H 98-107 mmol/L Carbon Dioxide Level 25 20-31 mmol/L Anion Gap 6 5-15 Blood Urea Nitrogen 6 L 9-23 mg/dL Creatinine 0.69 0.550-1.02 mg/dL Glomerular Filtration Rate Calc 96 >90 mL/min BUN/Creatinine Ratio 8.7 L 10.0-20.0 Serum Glucose 87 74-106 mg/dL Hemoglobin A1c 4.8 <5.7 % A1C Uric Acid 2.0 L 3.1-7.8 mg/dL Calcium Level 8.8 8.7-10.4 mg/dL Total Bilirubin 0.4 0.2-1.0 mg/dL Aspartate Amino Transferase (AST) 11 L 13-40 U/L Alanine Aminotransferase (ALT) 10 7-40 U/L Alkaline Phosphatase 83 46-116 U/L B-Type Natriuretic Peptide 78.71 0-100 pg/mL Total Protein 6.2 5.7-8.2 g/dL Albumin 3.6 3.2-4.8 g/dL Vitamin B12 Level 666 211-911 pg/mL Vitamin D 25-Hydroxy 32.9 30.0-100 ng/mL Thyroid Stimulating Hormone (TSH) 1.56 0.55-4.78 uIU/mL Test 06/10/24 00:45 Range/Units Magnesium Level 2.1 1.6-2.6 mg/dL Troponin I High Sensitivity 23 </=34 ng/L Assessment Chest pain, rule out progressive coronary artery disease Coronary artery disease status post multiple PTCAs x4 XAVIER (prescribed Plavix and Aspirin/hasn't taken in 4 months) Hypertensive urgency Dyslipidemia History of AAA Pulmonary hypertension History of pulmonary embolism CVA x3 with right-sided deficit Seizure disorder Plan/Recommendation We will continue with the following plan/recommendations (Dr. Ling): * Echocardiogram to evaluate cardiac function * Chest pain protocol * HEART score: 6 points (moderate score) * Restart dual antiplatelet therapy, Plavix and aspirin * Lipid-lowering agent * Aggressive BP control * Abdominal ultrasound- evaluate AAA * [facility] Case reviewed and discussed with . Given the patient's significant cardiac history, clinical presentation, and twelve lead electrocardiogram, we will recommend for the patient to undergo an coronary angiogram with left heart catheterization. The procedure was discussed with the patient full detail including risks and benefits. Risks include but are not limited to bleeding, contrast induced nephropathy, stroke, and even . The patient understands and is agreeable to undergo the procedure. We will schedule the patient at first availability on 06/11/2024. Thank you for allowing us to care for this patient. Please call with any questions or concerns. Critical care time spent: 45 minutes This medical document was created using an electronic medical record system with voice recognition software and computerized dictation system. Although this document has been carefully reviewed, there might still be some phonetic and typographical errors. Occasional wrong-word or ``sound-alike substitutions may have occurred due to the inherent limitations of voice recognition software. These areas are purely typographical due to imperfections of the software programs and do not reflect any compromise in the patient's medical care. Please read the chart carefully and recognize, using context, where these substitutions have occurred. Plan discussed with: Patient Date of Service: Jun 10, 2024 Billing Provider: SAPNA LING MD Cardiology Common Codes: 04166-[id number] INP/OBS CARE (High) RONNIE STEVENSON [employer] Jun 10, 2024 13:42
[2024-06-10 14:04] LABS: Triglycerides 51 mg/dL (< 150)
[2024-06-10 14:05] LABS: LDL Cholesterol 124 mg/dL (< 100)
[2024-06-10 14:06] LABS: Cholesterol 203 mg/dL (< 200); HDL Cholesterol 73 mg/dL (40-59)
--- NOTE | 2024-06-10 15:14 | DVHSR ---
APPROVED REPORT EXAM: Two-dimensional and M-mode echocardiogram with Doppler and color Doppler. Blood Pressure: 165/85 mmHg INDICATION Chest Pain RISK FACTORS Height: 65, Weight: 149 DIMENSIONS LVDd4.2 (3.8-5.7cm)LA (2D) (1.9-4.0cm)Aortic Root3.2 (2.0-3.7cm) LVDs2.5 (2.5-4.0cm)LA (MM) (1.9-4.0cm)Aortic Cusp Exc1.9 (1.5-2.0cm) EF (%) 72.0 (55-70%)Rt. Atrium (1.9-4.0cm)Asc. Aorta cm IVSd1.2 (0.7-1.1cm)RV (D) (1.8-2.4cm) PWd1.6 (0.7-1.1cm) Mitral Valve MitralMitral Stenosis E wave0.85m/sMV Mean GR.mmHg A wave1.25m/sMV Peak GR.117mmHg E/A ratio0.72D MVAcm2 DECEL [id number] 1/2 [id number] IVRTmsDop MVA3.61cm2 Aortic Valve Aortic ValveAortic Stenosis V12.03m/Kristina Mean GR.11mmHg V22.30m/Krsitina Peak GR.21mmHg LVOT Diameter1.7 (1.8-2.4cm)Doppler AVA2.00cm2 Pulmonic Valve V21.16m/s Tricuspid Valve TR Velocity3.45m/s [id number] Conclusion Normal left ventricular size and dimension. Normal left ventricular systolic function with estimated ejection fraction 60%. There is a grade diastolic dysfunction. Normal right ventricular size and dimension. Normal right ventricular systolic function. Severely e levated right ventricular systolic pressure 60 mm of mercury. Normal biatrial size and dimension. Normal aortic valve structure Normal mitral valve structure and function. Normal tricuspid valve structure and. Pulmonary valve is grossly normal. No pericardial effusion.
[2024-06-10] MEDS: OXYCODONE W/ ACETAMINOPHEN 5/325MG TABLET PO PRN (15:32)
[2024-06-10 17:37] VITALS: BP 155/90; PULSE 76; RESP 17; TEMP 98.1; O2SAT 95
[2024-06-10 18:13] VITALS: PULSE 80; RESP 16; O2SAT 96
--- NOTE | 2024-06-10 19:45 | DVH ---
EXAM: US AAA SCREENING HISTORY: RULE OUT AAA COMPARISON: None TECHNIQUE: Grayscale and Doppler imaging of the abdominal aorta and iliac arteries. FINDINGS: AORTA: Proximal abdominal aorta measures 2.6 cm in AP and 2.6 cm in transverse. Mid abdominal aorta measures 1.8 cm in AP and 1.8 cm in transverse. Distal abdominal aorta measures 2.5 cm in AP and 2.5 cm in transverse. Mild scattered plaques are noted. ILIAC ARTERIES: The visualized portions are normal in caliber. OTHER: None. IMPRESSION: 1. Borderline fusiform aneurysm of distal abdominal aorta diameter of 2.6 cm. In addition, proximal a bdominal aorta is borderline dilated measuring 2.6 cm. Recommend follow-up by ultrasound in 5 years. AAA size (cm) Recommended Follow-Up 26 cm to 2.9 cm Every 5 years 30 cm to 3.4 cm Every 3 years 35 cm to 3.9 cm Every 12 months 40 cm to 4.4 cm Every 12 months, Recommend vascular consultation 45 cm to 5.4 cm Every 6 months, Recommend vascular consultation 55 cm Referral to vascular surgeon
[2024-06-10 19:54] LABS: INR 1.07 (0.9-1.15); Partial Thromboplastin Time 29.8 SEC (24.5-34.5); Prothrombin Time 11.3 sec (9.3-11.8)
[2024-06-10 20:00] VITALS: PULSE 73
[2024-06-10] MEDS: MINOXIDIL 2.5 MG TAB PO ONE (20:04)
[2024-06-10] MEDS: traZODone HCL 50 MG TAB PO SCH (21:26)
[2024-06-10] MEDS ORDERED: ATORVASTATIN 20 MG TAB PO SCH (22:00)
[2024-06-11] VITALS (13 sets, daily range): BP systolic 98–117; BP diastolic 56–73; PULSE 64–77; RESP 12–20; TEMP 98.1–98.7; O2SAT 92–99
[2024-06-11 06:09] LABS: Basophils # (auto) 0 10 ^3/uL (0-0.2); Basophils % (auto) 0.6 % (0.0-2.0); Eosinophils # (auto) 0.2 10 ^3/uL (0-0.8); Eosinophils % (auto) 2.4 % (0.0-7.0); Hematocrit 36.7 % (36.0-46.0); Lymphocytes # (auto) 2.8 10 ^3/uL (0.4-5.4); Lymphocytes % (auto) 43.5 % (10.0-50.0); Mean Corpuscular Hemoglobin 30.2 pg (28.0-32.0); Mean Corpuscular Hgb Conc. 32.8 g/dL (32.0-36.0); Monocytes # (auto) 0.5 10 ^3/uL (0-1.3); Monocytes % (auto) 7.8 % (0.0-12.0); Neutrophils % (auto) 45.7 % (37.0-80.0); Nucleated Red Blood Cells % 0.1 %; Platelet Count (auto) 142 10^3/uL (140-450); Red Blood Cells 3.99 10^6/uL (4.0-5.20); Red Cell Distribution Width 14.9 % (11.8-14.3); White Blood Cell 6.5 10^3/uL (4.4-10.8)
[2024-06-11 06:16] LABS: INR 1.08 (0.9-1.15); Partial Thromboplastin Time 27.1 SEC (24.5-34.5); Prothrombin Time 11.4 sec (9.3-11.8)
[2024-06-11 06:20] LABS: Alanine Aminotransferase 11 U/L (7-40); Albumin 3.6 g/dL (3.2-4.8); Alkaline Phosphatase 80 U/L (46-116); Anion Gap 4 (5-15); Aspartate Aminotransferase 8 U/L (13-40); Blood Urea Nitrogen 16 mg/dL (9-23); Calcium 9.5 mg/dL (8.7-10.4); Carbon Dioxide 30 mmol/L (20-31); Chloride 108 mmol/L (98-107); Glucose 91 mg/dL (74-106); Potassium 3.9 mmol/L (3.5-5.1); Sodium 142 mmol/L (136-145)
[2024-06-11 06:21] LABS: Bilirubin, Total 0.4 mg/dL (0.2-1.0); Total Protein 6.1 g/dL (5.7-8.2)
[2024-06-11] MEDS: ANGIOMAX 250 MG VIAL IV ONE (09:13)
[2024-06-11] MEDS: fentaNYL CITRATE 100 MCG/2 ML VL ONE (09:13)
[2024-06-11] MEDS: VERAPAMIL 2.5MG/ML INJ 2ML VIAL IV ONE (09:13)
[2024-06-11] MEDS: HEPARIN SODIUM (PORCINE) 5000 UNITS/ML 1ML VIAL ONE (09:13)
[2024-06-11] MEDS: LIDOCAINE 2%HCL (LOCAL ANESTH.) INJ 20ML MDV ONE (09:14)
[2024-06-11] MEDS: SODIUM CHL 0.9% 0 ML ONE (09:14)
[2024-06-11] MEDS: NITROGLYCERIN 50MG/250ML 250 ML IV ONE (09:14)
[2024-06-11] MEDS: MIDAZOLAM HCL 2MG/2ML 2ml VIAL (1mg/ml) ONE (09:14)
[2024-06-11] MEDS: IODIXANOL 320MG/ML 100ML BTL IV ONE (09:51)
--- NOTE | 2024-06-11 10:04 | DVHOP2 ---
Operative Report -Cardiology Report Details Date: 06/11/24 Preop Diagnosis: Angina pectoralis. Postop Diagnosis: Widely patent stent to the LAD as well as the right coronary artery total of four stent in each of the vessels. There is distal disease involving the 2nd obtuse marginal branches 70% distal specifically distal left anterior descending artery after the stent in a 70% for which they were left for medical therapy. Patient has also diastolic heart failure with a left ventricular end-diastolic pressure 20 mm of mercury. Surgeon: Derik Lujan MD Anesthesiologist: Conscious sedation using25 mcg of fentanyl as well as a mg midazolam was given by myself with the primary mangle tender cloth under the supervision of the attending nurses. No obvious complication was noted in the 35 minutes the patient was monitored for. Anesthesia: Local Consent: The patient was informed of the risks and benefits of the procedure. These include but are not limited to complications of anesthesia, postoperative infection, incomplete relief of symptoms, recurrence of symptoms, damage to blood vessels, nerves and tendons, deep venous thrombosis, pulmonary embolism and possible need for repeat surgery in the future. Indications for Surgery: This is a 63-year-old female patient who presents to the emergency room with chief complaint of migraine and chest pain. Patient reports that yesterday morning she began to experience a migraine that wrapped around her head and traveled down her neck. Throughout the day of the migraine was not subsiding. Later in the evening around 7:00 p.m., she started noticing chest pain. She describes the chest pain as unprovoked, pressure-like in nature, constant, and substernal with radiation to her left breast. Associated symptoms include dyspnea on exertion. The patient denies any alleviating or precipitating factors. The patient reports that her blood pressure was checked at home and reached as high as systolic 200s. EMS was called and the patient was brought to the emergency room for further evaluation. Initial twelve lead electrocardiogram reveals normal sinus rhythm with nonspecific ST changes to lateral leads. Initial troponin level of 22ng/L with flat trend thereafter. Significant past medical history includes coronary artery disease status post multiple PTCAs x4 XAVIER (on Plavix and Aspirin), hypertension, pulmonary hypertension, dyslipidemia, abdominal aortic aneurysm (without intervention), history of pulmonary embolism, CVA x3 with right-sided deficit, and seizure disorder. The patient mentions that she has been out of most of her medications for approximately four months now. The patient reports that of all of her medications, the only one that she has been taking is hydralazine. The patient states that she is to follow up with in the outpatient setting but has not seen him in over a year. Patient admits to being off Plavix and aspirin for four months. Name of Procedure Performed 1. Left heart catheterization with left ventricular end-diastolic pressure measurement. 2. Selective right and left coronary angiography utilizing right transradial approach. 3. Conscious sedation using25 mcg of fentanyl as well as a mg IV midazolam. Procedure Details Procedure Details: Procedure note: After informed consent was obtained risks, benefits, complications, and alternatives were discussed in details with the patient who agrees to have the procedure done. At the beginning of the procedure, the right wrist and right groin area were prepped and draped in regular sterile fashion. Patient received conscious sedation using25 mcg of fentanyl as well as a mg IV midazolam. Total of 2 cc of 1% xylocaine was given locally for anesthesia. Before six Setswana sheath was placed into the right radial artery using modified Seldinger technique. Patient received a cocktail of 2.5 mg of verapamil as well as 100 mcg of nitroglycerin intra-arterial to prevent vasospasm. Heparin also was given at 3000 units after the J-tip wire across the aortic arch. Findings were as follows: 1. Left heart catheterization with left ventricular end-diastolic pressure measurement: with the help of a tiger five Setswana catheter as well as a J-tip wire we were able to cross the aortic valve measured left ventricular end-diastolic pressure which was elevated at 20 mm of mercury. There was no gradient across the aortic valve on the pullback. 2. Selective right and left coronary angiography utilizing right transradial approach: 1. The right coronary artery comes off the right coronary cusp it is a large dominant system, it bifurcates distally into a large posterior descending artery and a large posterolateral branch. There is two widely patent stent in the proximal mid segments and no significant stenosis noted elsewhere. 2. Left main comes off the left coronary cusp, it has mild atherosclerotic plaquing without significant stenosis, it bifurcates distally into a large left anterior descending artery codominant left circumflex system. 3. Left anterior descending artery has mild irregularity of the proximal segment it has proximal stent as well as mid to distal stent both of which are patent. Distal to the distal stent there is de Sparkle lesion at 70% for medical therapy. Gives rise to two large diagonal branches has [id number] diseases. 4. left circumflex artery is a codominant system it has tortuosity of the AV groove, continues as 1st and 2nd obtuse marginal branch of the 2nd obtuse marginal branch with a 70% distal part of for medical. Impression and plan; 1. Widely patent stents to the LAD as well as to the right coronary artery two stent to each vessels has no significant InStent stenosis. 2. There is two de Sparkle lesions to distal obtuse marginal and distal left anterior descending arteries at 70% for which we will recommend medical therapy given the location of the lesion. 4. Elevated diastolic pressure indicating diastolic heart failure at 20 mm of mercury ventricular any acute diastolic heart failure. 5. Patient needs to resume all her medications including dual antiplatelet therapy, she would need aggressive medical therapy is achieve LDL target less than 50 mg/dL addition to echocardiography to assess left ventricular systolic function and proceed with goal-directed therapy as needed Condition Fair Dominance Dominance: Co-dominant Disposition DERIK LUJAN MD Jun 11, 2024 10:04
--- NOTE | 2024-06-11 11:04 | ECG ---
[facility] Test Date: 2024-06-09 Test Time: 23:33:24 Pat Name: GURPREET QUIGLEY Department: ED Room: 0246T A Gender: F Cotton Baler: CHRISTIAN : 1960 Requested By: NICO ARNETT Order Number: [id number] Reading MD: Parmjit Cardoso Measurements Intervals Clark Rate: 70 P: 39 MD: 172 QRS: -23 QRSD: 78 T: 91 QT: 408 QTc: 441 Interpretive Statements Sinus rhythm Probable left atrial enlargement Left ventricular hypertrophy Borderline T abnormalities, lateral leads Electronically Signed On 06-13-2024 14:27:35 PDT by Parmjit Cardoso Please click the below link to view image of tracing.
[2024-06-11] MEDS: SODIUM CHLORIDE 0.9% 500 ML IV ONE (11:27)
[2024-06-11] MEDS: MINOXIDIL 2.5 MG TAB PO SCH (12:28)
--- NOTE | 2024-06-11 13:19 | DVHDSRES ---
Discharge Summary Date of Admission Resident Creating Document: LETY CAMPBELL RESIDENT Jun 10, 2024 at 02:33 Date of Discharge: Jun 11, 2024 Labs/Diagnostic Data: Laboratory Results Test 06/11/24 05:43 06/10/24 11:30 06/10/24 09:25 06/10/24 05:21 White Blood Count 6.5 10^3/uL (4.4-10.8) Red Blood Count 3.99 10^6/uL (4.0-5.20) Hemoglobin 12.0 g/dL (12.2-16.2) Hematocrit 36.7 % (36.0-46.0) Mean Corpuscular Volume 92.0 fL (80.0-100.0) Mean Corpuscular Hemoglobin 30.2 pg (28.0-32.0) Mean Corpuscular Hemoglobin Concent 32.8 g/dL (32.0-36.0) Red Cell Distribution Width 14.9 % (11.8-14.3) Platelet Count 142 10^3/uL (140-450) Mean Platelet Volume 7.8 fL (6.9-10.8) Neutrophils (%) (Auto) 45.7 % (37.0-80.0) Lymphocytes (%) (Auto) 43.5 % (10.0-50.0) Monocytes (%) (Auto) 7.8 % (0.0-12.0) Eosinophils (%) (Auto) 2.4 % (0.0-7.0) Basophils (%) (Auto) 0.6 % (0.0-2.0) Neutrophils # (Auto) 3.0 10 ^3/uL (1.6-8.6) Lymphocytes # (Auto) 2.8 10 ^3/uL (0.4-5.4) Monocytes # (Auto) 0.5 10 ^3/uL (0-1.3) Eosinophils # (Auto) 0.2 10 ^3/uL (0-0.8) Basophils # (Auto) 0 10 ^3/uL (0-0.2) Nucleated Red Blood Cells 0.1 % Prothrombin Time 11.4 sec (9.3-11.8) Prothrombin Time INR 1.08 (0.9-1.15) Activated Partial Thromboplast Time 27.1 SEC (24.5-34.5) Sodium Level 142 mmol/L (136-145) Potassium Level 3.9 mmol/L (3.5-5.1) Chloride Level 108 mmol/L (98-107) Carbon Dioxide Level 30 mmol/L (20-31) Anion Gap 4 (5-15) Blood Urea Nitrogen 16 mg/dL (9-23) Creatinine 1.07 mg/dL (0.550-1.02) Glomerular Filtration Rate Calc 58 mL/min (>90) BUN/Creatinine Ratio 15.0 (10.0-20.0) Serum Glucose 91 mg/dL (74-106) Calcium Level 9.5 mg/dL (8.7-10.4) Total Bilirubin 0.4 mg/dL (0.2-1.0) Aspartate Amino Transferase (AST) 8 U/L (13-40) Alanine Aminotransferase (ALT) 11 U/L (7-40) Alkaline Phosphatase 80 U/L (46-116) Total Protein 6.1 g/dL (5.7-8.2) Albumin 3.6 g/dL (3.2-4.8) Beta HCG, Quantitative 2.1 mIU/mL (1.5-4.2) Urine Color Yellow (Yellow) Urine Clarity Clear (Clear) Urine pH 6.5 (5.0-9.0) Urine Specific [place] 1.020 (1.001-1.035) Urine Protein Negative (Negative) Urine Ketones Negative (Negative) Urine Blood Negative /uL (Negative) Urine Nitrite Negative (Negative) Urine Bilirubin Negative (Negative) Urine Urobilinogen Normal mg/dL (Negative) Urine Leukocyte Esterase Negative /uL (Negative) Urine RBC None seen /hpf (0 - 4) Urine WBC 1 /hpf (0 - 5) Urine Squamous Epithelial Cells Few /hpf (<5) Urine Bacteria None seen /hpf (None Seen) Urine Hyaline Casts Few /lpf (0 - 2) Urine Glucose Normal mg/dL (Normal) Urine Opiates Screen Pos (NEGATIVE) Urine Fentanyl Screen Neg (NEGATIVE) Urine Barbiturates Screen Neg (NEGATIVE) Urine Phencyclidine Screen Neg (NEGATIVE) Urine Amphetamines Screen Neg (NEGATIVE) Urine Benzodiazepines Screen Neg (NEGATIVE) Urine Cocaine Screen Neg (NEGATIVE) Urine Cannabinoids Screen Neg (NEGATIVE) SARS-CoV-2 Antigen (Rapid) Negative (NEGATIVE) Hemoglobin A1c 4.8 % A1C (<5.7) Uric Acid 2.0 mg/dL (3.1-7.8) B-Type Natriuretic Peptide 78.71 pg/mL (0-100) Triglycerides Level 51 mg/dL (< 150) Cholesterol Level 203 mg/dL (< 200) LDL Cholesterol 124 mg/dL (< 100) HDL Cholesterol 73 mg/dL (40-59) Vitamin B12 Level 666 pg/mL (211-911) Vitamin D 25-Hydroxy 32.9 ng/mL (30.0-100) Thyroid Stimulating Hormone (TSH) 1.56 uIU/mL (0.55-4.78) Test 06/10/24 00:45 Magnesium Level 2.1 mg/dL (1.6-2.6) Troponin I High Sensitivity 23 ng/L (</=34) Other Laboratory Tests 06/11/24 05:43 Brief Hx & Hospital Course: Skylar Thomas is a 63-year-old female with PMHx of CAD with 40 years, pulmonary hypertension, history of three strokes (last one in 2019), history of seizure disorder (last one four years ago), migraine, AAA diagnosed in 2021, hepatic steatosis, migraine who presented to the ER with a chief complaint of headache and chest pain starting 06/09. Patient reports waking up with a headache which was bifrontal, radiating to the neck and the back. She checked her blood pressure which was 190/104 mm Hg, following which she experienced chest pain started on rest, located in epigastric region, radiates to left arm and is pressure type in nature. She says that the chest pain is continuous, 7/10 in intensity and feels like somebody stepping on her. Stated that the pain is unrelated to the exertion. She walks with a cane. Associated symptoms include nausea and diaphoresis but no fever/chills/vomiting. She has not been taking her aspirin/Plavix for the past 4 months. She says that she ran out of medications including antihypertensives and Keppra. Lives with grandson, quit smoking 25 years back, former drinker, denies illicit drug use. PCP Dr. Ramos Home medications: Aspirin 81 mg, atorvastatin, clopidogrel 75 mg, Keppra 500 mg b.i.d., metoprolol 50 mg b.i.d., pantoprazole 40 mg p.o. daily, trazodone 200 mg During hospital workup, patient was diagnosed with hypertensive emergency, head CT was completed which was negative for acute findings,showed mild cerebral loss and chronic ischemic changes. Small chronic left cerebral infarct was seen. She was started on her home medications which she ran out of, nifedipine 90 mg, metoprolol 50 mg b.i.d., hydralazine 100 mg TID. She was also started on minoxidil 25 mg p.o. daily. Patient's blood pressure was adequately controlled. An echocardiogram completed which showed LVEF 60%. Grade 1 diastolic dysfunction. Elevated RVSP at 60 mm Hg and TRV 3.45. No structural heart disease. Troponins were 22, 22, 23. EKG reviewed, shows normal sinus rhythm. No ST changes or AV blockade seen. Cardiology was consulted - recommended left heart catheterization which the patient underwent 06/11 - Widely patent stents to the LAD as well as to the right coronary artery two stent to each vessels has no significant InStent stenosis. There is two de Sparkle lesions to distal obtuse marginal and distal left anterior descending arteries at 70% for which we will recommend medical therapy given the location of the lesion. Elevated diastolic pressure indicating diastolic heart failure at 20 mm of mercury ventricular any acute diastolic heart failure. Forcer Maker recommended resuming dual antiplatelet therapy, aggressive medical therapy including atorvastatin and beta herbert to achieve LDL less than 50 mg/dL. An ultrasound aorta was completed which showed Borderline fusiform aneurysm of distal abdominal aorta diameter of 2.6 cm. In addition, proximal abdominal aorta is borderline dilated measuring 2.6 cm. Recommend follow-up by ultrasound in 5 years. Chest x-ray was completed which showed widened mediastinum therefore a CT chest was done which showed chronic granulomatous disease with densely calcified azygoesophageal lymph node oral. R lower lobe nodule. CT chest findings are consistent with previous CT in 2019. Patient has a history of seizures and ran out of her Keppra, we resumed [address] scan also showed bilateral adrenal gland hyperplasia for which we recommended outpatient workup. 06/11/2024 - patient is hemodynamically stable, no active complaint, therefore she is being discharged home on aspirin 81 mg daily, Plavix 70 mg daily, atorvastatin 40 mg q.h.s., metoprolol 50 mg b.i.d. along with the home medications. She is scheduled for a follow up visit in the outpatient cardiac clinic on 06/24/2024 at 2:[address] Roberts. Also advised follow up with primary care physician in 7 to 14 days. Examination Physical examination General: Patient alert and oriented x4. Patient following commands. HEENT: Normocephalic, atraumatic, mucous membranes are dry Respiratory/pulmonary: Clear lungs bilaterally, vesicular murmurs present in almost all lung stubbs, no associated crackles or wheezes. Cardiovascular: Normal heart sounds S1 and S2 with no associated murmurs. Chest is tender to palpation. Abdomen: Abdomen nondistended, diffusely tender to palpation but no rebound tenderness, no palpable masses. Extremities: There is no peripheral edema present at the lower extremities. Peripheral Pulses: 3+ Radial (R). 3+ Radial (L). 3+ Dorsalis pedis (R). 3+ Dorsalis pedis(L) Skin: No rashes or pruritus Neurological: Intact cranial nerves with no focal neurologic deficits Operations or Procedures Operative Report -Cardiology Report Details Date: 06/11/24 Preop Diagnosis: Angina pectoralis. Postop Diagnosis: Widely patent stent to the LAD as well as the right coronary artery total of four stent in each of the vessels. There is distal disease involving the 2nd obtuse marginal branches 70% distal specifically distal left anterior descending artery after the stent in a 70% for which they were left for medical therapy. Patient has also diastolic heart failure with a left ventricular end-diastolic pressure 20 mm of mercury. Surgeon: Derik Lujan MD Anesthesiologist: Conscious sedation using25 mcg of fentanyl as well as a mg midazolam was given by myself with the primary home care administrator under the supervision of the attending nurses. No obvious complication was noted in the 35 minutes the patient was monitored for. Anesthesia: Local Consent: The patient was informed of the risks and benefits of the procedure. These include but are not limited to complications of anesthesia, postoperative infection, incomplete relief of symptoms, recurrence of symptoms, damage to blood vessels, nerves and tendons, deep venous thrombosis, pulmonary embolism and possible need for repeat surgery in the future. Indications for Surgery: This is a 63-year-old female patient who presents to the emergency room with chief complaint of migraine and chest pain. Patient reports that yesterday morning she began to experience a migraine that wrapped around her head and traveled down her neck. Throughout the day of the migraine was not subsiding. Later in the evening around 7:00 p.m., she started noticing chest pain. She describes the chest pain as unprovoked, pressure-like in nature, constant, and substernal with radiation to her left breast. Associated symptoms include dyspnea on exertion. The patient denies any alleviating or precipitating factors. The patient reports that her blood pressure was checked at home and reached as high as systolic 200s. EMS was called and the patient was brought to the emergency room for further evaluation. Initial twelve lead electrocardiogram reveals normal sinus rhythm with nonspecific ST changes to lateral leads. Initial troponin level of 22ng/L with flat trend thereafter. Significant past medical history includes coronary artery disease status post multiple PTCAs x4 XAVIER (on Plavix and Aspirin), hypertension, pulmonary hypertension, dyslipidemia, abdominal aortic aneurysm (without intervention), history of pulmonary embolism, CVA x3 with right-sided deficit, and seizure disorder. The patient mentions that she has been out of most of her medications for approximately four months now. The patient reports that of all of her medications, the only one that she has been taking is hydralazine. The patient states that she is to follow up with in the outpatient setting but has not seen him in over a year. Patient admits to being off Plavix and aspirin for four months. Name of Procedure Performed 1. Left heart catheterization with left ventricular end-diastolic pressure measurement. 2. Selective right and left coronary angiography utilizing right transradial approach. 3. Conscious sedation using25 mcg of fentanyl as well as a mg IV midazolam. Procedure Details Procedure Details: Procedure note: After informed consent was obtained risks, benefits, complications, and alternatives were discussed in details with the patient who agrees to have the procedure done. At the beginning of the procedure, the right wrist and right groin area were prepped and draped in regular sterile fashion. Patient received conscious sedation using25 mcg of fentanyl as well as a mg IV midazolam. Total of 2 cc of 1% xylocaine was given locally for anesthesia. Before six Moldovan sheath was placed into the right radial artery using modified Seldinger technique. Patient received a cocktail of 2.5 mg of verapamil as well as 100 mcg of nitroglycerin intra-arterial to prevent vasospasm. Heparin also was given at 3000 units after the J-tip wire across the aortic arch. Findings were as follows: 1. Left heart catheterization with left ventricular end-diastolic pressure measurement: with the help of a tiger five [place] catheter as well as a J-tip wire we were able to cross the aortic valve measured left ventricular end-diastolic pressure which was elevated at 20 mm of mercury. There was no gradient across the aortic valve on the pullback. 2. Selective right and left coronary angiography utilizing right transradial approach: 1. The right coronary artery comes off the right coronary cusp it is a large dominant system, it bifurcates distally into a large posterior descending artery and a large posterolateral branch. There is two widely patent stent in the proximal mid segments and no significant stenosis noted elsewhere. 2. Left main comes off the left coronary cusp, it has mild atherosclerotic plaquing without significant stenosis, it bifurcates distally into a large left anterior descending artery codominant left circumflex system. 3. Left anterior descending artery has mild irregularity of the proximal segment it has proximal stent as well as mid to distal stent both of which are patent. Distal to the distal stent there is de Sparkle lesion at 70% for medical therapy. Gives rise to two large diagonal branches has [id number] diseases. 4. left circumflex artery is a codominant system it has tortuosity of the AV groove, continues as 1st and 2nd obtuse marginal branch of the 2nd obtuse marginal branch with a 70% distal part of for medical. Impression and plan; 1. Widely patent stents to the LAD as well as to the right coronary artery two stent to each vessels has no significant InStent stenosis. 2. There is two de Sparkle lesions to distal obtuse marginal and distal left anterior descending arteries at 70% for which we will recommend medical therapy given the location of the lesion. 4. Elevated diastolic pressure indicating diastolic heart failure at 20 mm of mercury ventricular any acute diastolic heart failure. 5. Patient needs to resume all her medications including dual antiplatelet therapy, she would need aggressive medical therapy is achieve LDL target less than 50 mg/dL addition to echocardiography to assess left ventricular systolic function and proceed with goal-directed therapy as needed Condition Fair Dominance Dominance: Co-dominant Disposition 2 DERIK LUJAN MD Jun 11, 2024 10:04 DICTATED BY:DERIK LUJAN MD DICTATED DATE/TIME:06/11/24 1004 ELECTRONICALLY SIGNED BY:DERIK LUJAN MD 06/11/24 1004 ELECTRONICALLY CO-SIGNED BY: ORDERING PHYSICIAN: RONNIE STEVENSON PROCEDURE(s): AAA SCREEN - AAA SCREENING REASON: RULE OUT AAA ORDER NUMBER(s): [id number], ACCESSION NUMBER(s): [id number] EXAM: US AAA SCREENING HISTORY: RULE OUT AAA COMPARISON: None TECHNIQUE: Grayscale and Doppler imaging of the abdominal aorta and iliac arteries. FINDINGS: AORTA: Proximal abdominal aorta measures 2.6 cm in AP and 2.6 cm in transverse. Mid abdominal aorta measures 1.8 cm in AP and 1.8 cm in transverse. Distal abdominal aorta measures 2.5 cm in AP and 2.5 cm in transverse. Mild scattered plaques are noted. ILIAC ARTERIES: The visualized portions are normal in caliber. OTHER: None. IMPRESSION: 1. Borderline fusiform aneurysm of distal abdominal aorta diameter of 2.6 cm. In addition, proximal abdominal aorta is borderline dilated measuring 2.6 cm. Recommend follow-up by ultrasound in 5 years. AAA size (cm) Recommended Follow-Up 26 cm to 2.9 cm Every 5 years 30 cm to 3.4 cm Every 3 years 35 cm to 3.9 cm Every 12 months 40 cm to 4.4 cm Every 12 months, Recommend vascular consultation 45 cm to 5.4 cm Every 6 months, Recommend vascular consultation 55 cm Referral to vascular surgeon ATED BY: EMELY JIMÉNEZ MD DICTATED DATE/TIME: 06/10/241942 SIGNED BY: EMELY JIMÉNEZ MD SIGNED DATE/TIME: 06/10/241942 CC: ORDERING PHYSICIAN: AIDE SÁNCHEZ PROCEDURE(s): CX2CT - CHEST WITHOUT CONTRAST REASON: widened mediastinum ORDER NUMBER(s): [id number], ACCESSION NUMBER(s): [id number] Procedure: CT CHEST WITHOUT CONTRAST Reason for study/Clinical History: Comparison Study: None available at time of dictation. Exam Date: 06/10/2024 09:16 AM TECHNIQUE: Multidetector CT of the chest was performed from the lung apices to the upper abdomen without the use of intravenous contract. Axial, coronal and sagittal multiplanar reformats were performed. Radiation Dose Information: CT Dose: CTDI volume is 6.96 mGy. Dose-length product is 251.82 mGy*cm The dose indicators for CT are the volume Computed Tomography (CT) Dose Index (CTDIvol) and the Dose Length Product (DLP), and are measured in units of mGy and mGy-cm, respectively. These indicators are not patient dose, but values generated from the CT scanner acquisition factors. The report includes radiation exposure data for exposures received during this examination. Radiation optimization: All CT scans at this facility use at least one of these dose optimization techniques: automated exposure control mA and/or kV adjustment per patient size (includes targeted exams where dose is matched to clinical indication) or iterative reconstruction. FINDINGS Lungs: No focal consolidation. No suspicious appearing pulmonary nodule or mass. There is a calcified granuloma in the posterior right lung base. Heart/Vascular Structures: Normal heart size. No pericardial effusion. Lymph Nodes: There is a 2.6 x 3.2 cm densely calcified azygesophageal window lymph node. There are no pathologically enlarged mediastinal lymph nodes. There is no axillary lymphadenopathy. Pleura: No pleural effusion or significant pneumothorax. Musculoskeletal: No acute osseous abnormality. Soft tissues: Unremarkable. Upper abdomen: Bilateral adrenal glands appear thickened probably related to hyperplasia. The remaining visualized solid intra-abdominal structures appear within normal limits. IMPRESSION: 1. There is no acute pulmonary process. 2. Chronic granulomatous disease with a prominent densely calcified azygoesophageal window mediastinal lymph node. HS:Y ATED BY: PRASHANT AQUINO MD DICTATED DATE/TIME: 06/10/241008 SIGNED BY: PRASHANT AQUINO MD SIGNED DATE/TIME: 06/10/241008 CC: ORDERING PHYSICIAN: NICO ARNETT MD PROCEDURE(s): HWOCT - HEAD WITHOUT CONTRAST REASON: chest pain ORDER NUMBER(s): [id number], ACCESSION NUMBER(s): [id number] CLINICAL HISTORY: head pain TECHNIQUE: Helical imaging carried out from skull base to vertex without intravenous contrast. This exam was performed according to our departmental dose optimization program. Up-to-date CT equipment and radiation dose reduction techniques are utilized as appropriate. CTDIVol: [CTDIvol] mGy DLP: 829.23 mGy-cm WID: COMPARISON: None FINDINGS: Generalized cerebral volume loss with concordant prominence of the subarachnoid spaces and ventricles, mild. There is moderate patchy low attenuation in the cerebral white matter consistent with nonspecific white matter disease. Small chronic left cerebellar infarct. Incidental bilateral basal ganglia calcifications. There is no midline shift or mass effect. The [place] white matter interfaces are maintained. The basal cisterns are patent. There is no evidence of acute intracranial hemorrhage or extra-axial fluid collection. The mastoid air cells and visualized paranasal sinuses are well-aerated. IMPRESSION: 1. No acute intracranial abnormality. 2. Mild cerebral volume loss and moderate chronic microvascular ischemic change. 3. Small chronic left cerebellar infarct. ATED BY: ARCHIE SOTO MD DICTATED DATE/TIME: 06/10/24112 SIGNED BY: ARCHIE SOTO MD SIGNED DATE/TIME: 06/10/24112 CC: Condition at Discharge: Stable Final Diagnosis/Problems List Acute chest pain, secondary to two de Sparkle lesions to distal obtuse marginal and distal left anterior descending arteries at 70% Chest pain, ruled out progressive coronary artery disease History of CAD with 4 XAVIER - RCA 2021, LAD [address] Cardoso Ischemic cardiomyopathy Hypertensive emergency Chronic granulomatous disease - asymptomatic Dyslipidemia 2.6cm AAA Pulmonary hypertension History of pulmonary embolism History of 3 CVA-last episode 2019 Seizure disorder - last episode four years ago Bilateral adrenal gland hyperplasia Aortoiliac atherosclerosis History of migraine headache History of internal hemorrhoids Insomnia and anxiety Dyslipidemia GERD Discharge Disposition: Home Discharge Instruct/Medications Diet: Cardiac 2g Na,low cholest Activity: Light activity Follow Up/Referral: Follow up with primary care physician in 7 days Follow up with outpatient cardiac clinic on 06/24/2024 at 2:[address] Roberts. Medications: Aspirin and plavix Discharge Statement: "Patient was advised to return to the ER or call 911 if any headaches, dizziness, shortness of breath, chest pain, abdominal pain, bleeding, fevers, or worsening of medical condition. Patient was counseled about treatment plan, medications, possible side effects, patientverbalized understanding. All questions were answered to the best of my ability. This discharge took greater then 30 minutes in planning, reviewing documentation, counseling the patient, and discussing with other team members." ASSESSMENT ASSESSMENT Assessment Acute chest pain, secondary to two de Sparkle lesions to distal obtuse marginal and distal left anterior descending arteries at 70% History of CAD with 4 XAVIER - RCA 2021, LAD [address] Cardoso Ischemic cardiomyopathy Date of Service: Jun 11, 2024 Billing Provider: LAUREL RAMOS MD Common Visit Codes: 50251-GTD/OBS DISCH DAY >30min LETY CAMPBELL RESIDENT Jun 11, 2024 13:19 LAUREL RAMOS MD Jun 11, 2024 15:42
[2024-06-11] MEDS: POLYETHYLENE GLYCOL 17 GM PWDR PO ONE (13:48)
--- NOTE | 2024-06-11 13:48 | DVHPN2 ---
Consult Progress Note Subjective Patient reports: Feels better Other Systems: No cardiac events reported. Objective vital signs Vital Sign Date Time Temp Pulse Resp B/P (MAP) Pulse Ox O2 Delivery O2 Flow Rate FiO2 06/11/24 13:00 98.7 77 16 117/69 (85) 93 98.7 06/11/24 10:50 Room Air* 0 21 Total Intake and Output 06/10/24 06/10/24 06/11/24 15:00 23:00 07:00 Intake Total 700 ml Balance 700 ml medications Current Medications Medications Dose Ordered Sig/Rikki Route Start Time Stop Time Status Last Admin Dose Admin Sodium Chloride 10 ml Q8HR IV 06/10/24 06:00 06/11/24 05:24 10 ML Ondansetron HCl 4 mg Q4HP PRN IV 06/10/24 02:45 06/10/24 09:32 4 MG Docusate Sodium 100 mg BIDPRN PRN PO 06/10/24 02:45 Morphine Sulfate 2 mg Q4HPRN PRN IV 06/10/24 02:45 06/11/24 07:03 2 MG Nitroglycerin 0.4 mg Q5MINP PRN SL 06/10/24 02:45 Morphine Sulfate 2 mg Q30M PRN IV 06/10/24 02:45 Hydralazine HCl 10 mg Q6HPRN PRN IV 06/10/24 02:45 Aspirin 81 mg DAILY PO 06/10/24 10:00 06/11/24 11:29 81 MG Clopidogrel Bisulfate 75 mg DAILY PO 06/10/24 10:00 06/11/24 11:30 75 MG Metoprolol Tartrate 50 mg BID PO 06/10/24 10:00 06/11/24 11:29 50 MG Pantoprazole Sodium 40 mg DAILY PO 06/10/24 10:00 06/11/24 11:29 40 MG Potassium Chloride 40 meq DAILY PO 06/10/24 10:00 06/11/24 11:29 40 MEQ Hydralazine HCl 100 mg TID PO 06/10/24 06:00 06/10/24 21:26 100 MG Nifedipine 90 mg DAILY PO 06/10/24 10:00 06/11/24 11:28 90 MG Levetiracetam 500 mg BID PO 06/10/24 12:15 06/11/24 11:30 500 MG Trazodone HCl 200 mg HS PO 06/10/24 22:00 06/10/24 21:26 200 MG Enoxaparin Sodium 40 mg DAILY SC 06/10/24 12:30 06/10/24 13:02 40 MG Acetaminophen 650 mg Q6HPRN PRN PO 06/10/24 13:30 Oxycodone/ Acetaminophen 1 tab Q6HP PRN PO 06/10/24 13:30 06/11/24 11:49 1 TAB Minoxidil 2.5 mg DAILY PO 06/11/24 10:00 06/11/24 12:28 2.5 MG Atorvastatin Calcium 40 mg HS PO 06/11/24 22:00 Examination: GENERAL:Normal, LUNGS:Normal, CVS:Normal, NEURO:Normal laboratory and microbiology Laboratory Tests 06/11/24 05:43 Test 06/11/24 05:43 Range/Units Serum Glucose 91 74-106 mg/dL Problem List/Assessment/Plan Problem List/Assessment/Plan Chest pain, ruled out progressive coronary artery disease Coronary artery disease status post multiple PTCAs x4 XAVIER (prescribed Plavix and Aspirin/hasn't taken in 4 months) Hypertensive urgency, resolved Dyslipidemia History of AAA Pulmonary hypertension History of pulmonary embolism CVA x3 with right-sided deficit Seizure disorder Plan/Recommendation (Dr. Ling): * Echocardiogram reveals EF 60%, RVSP 60mmHg * Dual antiplatelet therapy, Plavix and aspirin * Lipid-lowering agent * Aggressive BP control * Risk factor modifications, counseled * Adherence to medication regimen * Dietary and lifestyle changes The patient underwent a coronary angiogram with left heart catheterization with . The patient was found to have widely patent stents to the LAD as well as to the right coronary artery with no significant InStent stenosis. Patient has distal disease for which we will recommend medical therapy at this time. The patient is to continue her dual antiplatelet therapy with Plavix and aspirin. The patient is also to continue lipid-lowering agent and beta-herbert. Continue aggressive blood pressure control. Lifestyle modifications discussed with the patient including dietary and lifestyle changes. The patient has been scheduled for a follow up visit in the outpatient [facility]iac [facility] on 06/24/24 at 2:15pm with Dr. Ling. There is no further inpatient cardiac workup indicated at this time. Thank you for allowing us to care for this patient. Please call with any questions or concerns. This medical document was created using an electronic medical record system with voice recognition software and computerized dictation system. Although this document has been carefully reviewed, there might still be some phonetic and typographical errors. Occasional wrong-word or ``sound-alike substitutions may have occurred due to the inherent limitations of voice recognition software. These areas are purely typographical due to imperfections of the software programs and do not reflect any compromise in the patient's medical care. Please read the chart carefully and recognize, using context, where these substitutions have occurred. Plan discussed with: Patient Date of Service: Jun 11, 2024 Billing Provider: SAPNA LING MD Common Visit Codes: [id number] INP/OBS CARE(HIGH) RONNIE STEVENSON ADJUSTER ARBITRATOR Jun 11, 2024 13:48
[2024-06-11] MEDS ORDERED: PANT40TA57 PO (18:19)
[2024-06-11] MEDS ORDERED: NIFE90TA75 PO (18:19)
[2024-06-11] MEDS ORDERED: TRAZ-228 PO (18:19)
[2024-06-11] MEDS ORDERED: LEVE100012 PO (18:19)
[2024-06-11] MEDS ORDERED: MET50T PO (18:19)
[2024-06-11] MEDS ORDERED: DICY10CA PO (18:19)
[2024-06-11] MEDS ORDERED: ATOR40TA52 PO (18:19)
[2024-06-11] MEDS ORDERED: FAMO20TA10 PO (18:19)
[2024-06-11] MEDS ORDERED: HYDR100T10 PO (18:19)
[2024-06-11] MEDS ORDERED: CLOP75TA28 PO (18:19)
[2024-06-11] MEDS ORDERED: ASPI-325 PO (18:19)
[2024-06-11] MEDS ORDERED: MIN25T PO (18:27)
[2024-06-11] MEDS ORDERED: KEP500T PO (18:39)
[2024-06-11] MEDS ORDERED: ATORVASTATIN 20 MG TAB PO SCH (22:00)
== END 2024-06-11 18:30 | disposition home or self-care (01) | DRG 191 ==
LOC: EDUNIT# 22:44 → ER 22:44 → EDBD 22:44 → TELE 06-10 02:33 → TELE-EAST 06-10 17:28
PROVIDERS: ADMIT Internal Medicine; ATTEND Internal Medicine
PROC: 4A023N7 Measurement of Cardiac Sampling and Pressure, Left Heart, Percutaneous Approach (ICD-10-PCS; principal; 2024-06-11)
PROC: B211YZZ Fluoroscopy of Multiple Coronary Arteries using Other Contrast (ICD-10-PCS; 2024-06-11)
DX: I24.9 Acute ischemic heart disease, unspecified (principal); E27.8 Other specified disorders of adrenal gland; I27.20 Pulmonary hypertension, unspecified; D71 Functional disorders of polymorphonuclear neutrophils; I50.32 Chronic diastolic (congestive) heart failure; I11.0 Hypertensive heart disease with heart failure; I16.1 Hypertensive emergency; E11.9 Type 2 diabetes mellitus without complications; E78.5 Hyperlipidemia, unspecified; E87.6 Hypokalemia; Z20.822 Contact with and (suspected) exposure to COVID-19; I70.0 Atherosclerosis of aorta; G40.909 Epilepsy, unspecified, not intractable, without status epilepticus; I71.40 Abdominal aortic aneurysm, without rupture, unspecified; G43.909 Migraine, unspecified, not intractable, without status migrainosus; I25.5 Ischemic cardiomyopathy; G47.00 Insomnia, unspecified; F41.9 Anxiety disorder, unspecified; K21.9 Gastro-esophageal reflux disease without esophagitis; Z86.79 Personal history of other diseases of the circulatory system; Z86.73 Personal history of transient ischemic attack (TIA), and cerebral infarction without residual deficits; Z86.711 Personal history of pulmonary embolism; Z82.49 Family history of ischemic heart disease and other diseases of the circulatory system; Z82.3 Family history of stroke; Z80.0 Family history of malignant neoplasm of digestive organs; Z79.82 Long term (current) use of aspirin; Z79.899 Other long term (current) drug therapy; Z88.8 Allergy status to other drugs, medicaments and biological substances; I25.2 Old myocardial infarction; Z95.5 Presence of coronary angioplasty implant and graft; Z98.891 History of uterine scar from previous surgery
CPT/HCPCS: 36415; 70450; 71045; 71250; 80048; 80053; 80061; 80307; 81001; 82306; 82607; 83036; 83735; 83880; 84443; 84484; 84550; 84702; 85025; 85610; 85730; 86850; 86900; 86901; 87426; 93005; 93306; 93458; 97163; 99152; 99291; G0378; J2250; J2405; Q9967

== ENCOUNTER 2025-06-19 13:35 | Outpatient (CLI) | payer MEDICARE, MEDICAID ==
[~2025-06-19 13:35] MED LIST changes: +ASPI-325 PO; -ASPI-394 PO; -ATOR20TA50 PO; +ATOR40TA52 PO; +MIN25T PO; -PANT40T PO; +PANT40TA57 PO; -POTA-220 PO
[2025-06-19 13:59] LABS: Hematocrit 41.6 % (36.0-46.0); Hemoglobin 13.9 g/dL (12.2-16.2); Mean Corpuscular Hemoglobin 30.2 pg (28.0-32.0); Mean Corpuscular Volume 90.2 fL (80.0-100.0); Nucleated Red Blood Cells % 0.0 %
[2025-06-19 14:21] LABS: Alanine Aminotransferase 28 U/L (7-40); Albumin 4.6 g/dL (3.2-4.8); Alkaline Phosphatase 104 U/L (46-116); Anion Gap 10 (5-15); BUN/Creatinine Ratio 16.2 (10.0-20.0); Blood Urea Nitrogen 16 mg/dL (9-23); Calcium 9.3 mg/dL (8.7-10.4); Carbon Dioxide 27 mmol/L (20-31); Chloride 106 mmol/L (98-107); Cholesterol 174 mg/dL (< 200); Glucose 82 mg/dL (74-106); Sodium 143 mmol/L (136-145); Total Protein 8.0 g/dL (5.7-8.2); Triglycerides 56 mg/dL (< 150)
[2025-06-19 14:22] LABS: Bilirubin, Total 0.4 mg/dL (0.2-1.0)
[2025-06-19 14:27] LABS: HDL Cholesterol 87 mg/dL (40-59); Potassium 3.3 mmol/L (3.5-5.1)
== END 2025-06-19 17:00 | disposition home or self-care (01) ==
LOC: LAB 13:35
PROVIDERS: ATTEND Internal Medicine
DX: I11.0 Hypertensive heart disease with heart failure (principal); I50.32 Chronic diastolic (congestive) heart failure; Z79.899 Other long term (current) drug therapy
CPT/HCPCS: 36415; 80053; 80061; 83036; 83970; 84443; 85025